=== PATIENT | female | born 1955 | race Caucasian/White ===

== ENCOUNTER 2016-05-05 21:45 | Inpatient (IN) | payer OTHER ==
[~2016-05-05] VITALS: Ht 157.5 cm; Wt 64.4 kg
[~2016-05-05 21:45] MED LIST: ACET325T45 PO; ALBU8.5H5 IH; ALLO100T PO; ATOR40TA68 PO; CALC0.2511 PO; CHOL400T10 PO; CYCL25CA2 PO; DOCU100C26 PO; LOSA25TA5 PO; METO25TA7 PO; MYCO500T13 PO; OMEG100011 PO; PRED5 PO
[2016-05-05] MEDS ORDERED: ADENOSINE 6 ML ONE (22:34)
--- NOTE | 2016-05-05 22:36 | ERA ---
ER Documentation Chief Complaint Date/Time DATE: 05/05/16 TIME: 22:35 Chief Complaint palpitation HPI The patient is an 61-year-old female, presenting to the ER because of palpitation and chest discomfort that began about 9 a.m. intermittently, worse tonight. She has similar symptoms previously and is taking her medication. She denies fever, chills, neck pain, chest pain with exertion or vomiting or diaphoresis. She denies abdominal pain, vomiting, dysuria. He does not smoke nor drink Past medical history: Hypertension, dyslipidemia, history of SVT, chronic kidney disease Past surgical history: Renal transplant, thyroid surgery ROS All systems reviewed and are negative except as per history of present illness. Medications Home Meds Reported Medications Calcitriol* (Calcitriol*) 0.5 Mcg Capsule, 0.5 MCG PO DAILY, CAP 05/05/16 Albuterol Sulfate* (Ventolin HFA*) 18 Gm Hfa.aer.ad, 2 PUFF INHALATION Q4H, #1 INHALER 05/05/16 Docusate Sodium* (Doc-Q-Lace*) 100 Mg Capsule, 100 MG PO BID Y for CONSTIPATION , CAP 03/04/16 Losartan Potassium* (Losartan Potassium*) 25 Mg Tablet, 25 MG PO DAILY, TAB 03/04/16 Atorvastatin* (Atorvastatin*) 40 Mg Tablet, 40 MG PO QHS, #30 TAB 03/04/16 Cyclosporine* (Cyclosporine* Modified) 25 Mg Capsule, 100 MG PO BID, #120 CAP 03/04/16 Allopurinol* (Allopurinol*) 100 Mg Tablet, 100 MG PO DAILY, TAB 01/08/14 Acetaminophen* (Acetaminophen*) 325 Mg Tablet, 325 MG PO Q6 Y for PAIN AND OR ELEVATED TEMP, TAB 01/08/14 Prednisone* (Prednisone*) 5 Mg Tab, 5 MG PO DAILY, TAB 01/08/14 Mycophenolate Mofetil* (Cellcept*) 500 Mg Tablet, 1000 MG PO BID, TAB 01/08/14 Metoprolol Succinate* (Toprol XL*) 25 Mg Tab.sr.24h, 25 MG PO BID, TAB 01/08/14 [place]-3 Fatty Acids/Fish Oil* (Fish Oil *) 1,000 Mg Capsule, 2000 MG PO BID, CAP 01/08/14 Discontinued Reported Medications Cholecalciferol* (Vitamin D*) 400 Unit Tablet, 1.25 MG PO every tuesday, TAB 01/08/14 Albuterol Sulfate* (Albuterol Sulfate* HFA) 8.5 Gm Hfa.aer.ad, 2 PUFF IH Q4H Y for WHEEZING AND SOB, EA 01/08/14 Calcitriol* (Calcitriol*) 0.25 Mcg Capsule, 1 CAP PO DAILY 04/13/10 Allergies Allergies: Coded Allergies: No Known Allergy (Unverified , 05/05/16) PMhx/Soc History of Surgery: Yes Anesthesia Reaction: No Hx Neurological Disorder: No Hx Respiratory Disorders: No Hx Cardiac Disorders: No Hx Psychiatric Problems: No Hx Miscellaneous Medical Probl: Yes (renal failure) Hx Alcohol Use: No Hx Substance Use: No Hx Tobacco Use: No Physical Exam Vitals Vital Signs Date Time Temp Pulse Resp B/P Pulse Ox O2 Delivery O2 Flow Rate FiO2 05/06/16 04:00 94 20 128/98 100 Nasal Cannula 05/06/16 03:00 94 20 124/98 100 Nasal Cannula 05/06/16 02:00 87 20 121/85 100 Nasal Cannula 05/06/16 01:00 94 20 142/95 100 Nasal Cannula 05/06/16 00:08 83 20 122/91 100 Nasal Cannula 05/05/16 23:30 88 21 113/76 100 Nasal Cannula 05/05/16 22:46 161 20 147/125 100 Nasal Cannula 05/05/16 22:45 Nasal Cannula 2 05/05/16 22:40 161 19 119/101 100 Nasal Cannula 05/05/16 22:17 97.7 173 18 127/80 100 Physical Exam Const: No acute distress. Head: Atraumatic. Eyes: Normal Conjunctiva. ENT: Normal External Ears, Nose and Mouth. Neck: Full range of motion. No meningismus. Resp: Bibasilar crackles Cardio: Regular tachycardic Abd: Soft, non distended, normal bowel sounds, non tender. Skin: No petechiae or rashes. Back: No midline or flank tenderness. Ext: No cyanosis, or edema. Neur: Awake and alert. No focal deficit Psych: Normal Mood and Affect. Result Diagram: 05/05/16225305/05/162253 Results 24 hrs Laboratory Tests Test 05/05/16 22:54 Activated Partial Thromboplast Time 26.4Sec Alanine Aminotransferase (ALT/SGPT) 24IU/L Albumin 4.3g/dl Albumin/Globulin Ratio 1.22 Alkaline Phosphatase 96IU/L Anion Gap 19 Aspartate Amino Transf (AST/SGOT) 22IU/L B-Type Natriuretic Peptide 1140PG/ML Basophils # 0.010^3/ul Basophils % 0.2% Blood Urea Nitrogen 37mg/dl Calcium Level 9.0mg/dl Carbon Dioxide Level 26mmol/L Chloride Level 107mmol/L Creatinine 1.56mg/dl Direct Bilirubin 0.00mg/dl Eosinophils # 0.110^3/ul Eosinophils % 0.7% Globulin 3.50g/dl Glucose Level 119mg/dl Hematocrit 30.3% Hemoglobin 9.5g/dl INR International Normalized Ratio 0.91 Indirect Bilirubin 0.0mg/dl Lymphocytes # 2.110^3/ul Lymphocytes % 20.3% Magnesium Level 1.8mg/dl Mean Corpuscular Hemoglobin 26.4pg Mean Corpuscular Hemoglobin Concent 31.4g/dl Mean Corpuscular Volume 84.2fl Mean Platelet Volume 11.7fl Monocytes # 1.410^3/ul Monocytes % 13.0% Neutrophils # 6.810^3/ul Neutrophils % 65.4% Nucleated Red Blood Cells # 0.010^3/ul Nucleated Red Blood Cells % 0.0/100WBC Platelet Count 54066^3/UL Potassium Level 4.7mmol/L Prothrombin Time 12.2Sec Prothrombin Time Ratio 1.0 Red Blood Count 3.6010^6/ul Red Cell Distribution Width 14.3% Sodium Level 147mmol/L Thyroid Stimulating Hormone (TSH) 1.400MIU/L Total Bilirubin 0.0mg/dl Total Protein 7.8g/dl Troponin I 0.025ng/ml White Blood Count 10.510^3/ul Current Medications Medications (Trade) Dose Ordered Sig/Verna Route PRN Reason Start Time Stop Time Status Last Admin Dose Admin Furosemide 40 mg 40 mg ONCE ONCE IV 05/06/16 01:00 05/06/16 01:01 DC 05/06/16 01:00 Sodium Chloride (NS) 1,000 ml @ 75 mls/hr [id number] IV 05/06/16 00:58 05/06/16 01:08 DC IV Flush (NS 3 ml) 3 ml PER PROTOCOL IV 05/06/16 01:00 Lorazepam (Ativan) 0.5 mg Q6H PRN IV ANXIETY 05/06/16 01:00 Ondansetron HCl (Zofran Inj) 4 mg Q6H PRN IV NAUSEA AND/OR VOMITING 05/06/16 01:00 Nitroglycerin (Nitroglycerin (Sl Tab) 0.4 Mg) 1 tab Q5M PRN SL CHEST PAIN 05/06/16 01:00 Acetaminophen (Tylenol Tab) 650 mg Q6H PRN PO PAIN LEVEL 1-3 OR FEVER 05/06/16 01:00 Morphine Sulfate (morphine) 2 mg Q4H PRN IV PAIN LEVEL 7-10 05/06/16 01:00 Docusate Sodium (Colace) 100 mg Q12H PRN PO CONSTIPATION 05/06/16 01:00 UNV Famotidine (Pepcid) 20 mg Q12 PO 05/06/16 09:00 Heparin Sodium (Porcine) (Heparin (5000 Units/0.5 ml)) 5,000 unit Q12 SC 05/06/16 09:00 Albuterol (Ventolin Hfa) 2 puff Q4H INH 05/06/16 01:00 UNV Allopurinol (Zyloprim) 100 mg DAILY PO 05/06/16 09:00 UNV Atorvastatin Calcium (Lipitor) 40 mg QHS PO 05/06/16 21:00 UNV Calcitriol (Rocaltrol) 0.5 mcg DAILY PO 05/06/16 09:00 UNV Cyclosporine (Neoral) 100 mg BID PO 05/06/16 09:00 UNV Losartan Potassium (Cozaar) 25 mg DAILY PO 05/06/16 09:00 UNV Metoprolol Succinate (Toprol Xl) 25 mg BID PO 05/06/16 09:00 UNV Mycophenolate Mofetil (Cellcept) 1,000 mg BID PO 05/06/16 09:00 UNV Fish Oil (Fish Oil) 2,000 mg BID PO 05/06/16 09:00 UNV Prednisone (Prednisone) 5 mg DAILY PO 05/06/16 09:00 UNV Diltiazem HCl (Cardizem Iv) 10 mg ONCE ONCE IV 05/06/16 01:30 05/06/16 01:31 DC 05/06/16 02:24 Procedures/MDM EKG: Read by emergency physician at 10:18 pm Rate/Rhythm: SVT at 170 beats/min QRS, ST, T-waves: no T inversion, nonspecific ST abnormality Impression: Abnormal EKG EKG: Read by emergency physician at 10:45 pm Rate/Rhythm: Accelerated junctional rhythm 87 beats/min QRS, ST, T-waves: no T inversion , nonspecific ST abnormality Impression: Abnormal EKG [place] [id number] Radiology Main Line: [phone] DIAGNOSTIC IMAGING REPORT Patient: STEVE FONTENOT : 1955 Age: 61 Sex: F MR #: [id number] DOS: 05/05/16 2247 Ordering MD: DIAMANTE SANCHEZ MD Location: E/R Room/Bed: PROCEDURE: XR Chest. CLINICAL INDICATION: Chest pain. TECHNIQUE: Portable AP upright view of the chest was obtained. COMPARISON: 03/04/2016 FINDINGS: The cardiomediastinal silhouette is enlarged. The lungs are clear with resolved bibasilar subsegmental atelectasis and pulmonary vascular congestion. There is no evidence for pleural effusion, pneumothorax or pulmonary vascular congestion. The osseous structures are intact with no evidence for acute abnormality. Multiple clips in the right arm, left axilla and neck are again seen. RPTAT:HJJR IMPRESSION: Stable cardiomegaly with interval resolution of congestive heart failure pattern and bibasilar subsegmental atelectasis compared to the prior exam. Physician Ritika Date Time Electronically viewed and signed by Physician Ritika on 05/05/2016 23:21 JR/ CC: DIAMANTE SANCHEZ MD MEDICAL MAKING DECISION: The patient is a 61-year-old female, presenting with acute recurrent SVT, acute CHF. She was treated with adenosine 6 mg IV then 12 mg IV without response. She was then treated with Cardizem 10 mg IV with good response. She was treated with Lasix 40 mg IV for acute CHF with good response. The differential diagnoses considered include but are not limited to asthma, COPD, pneumonia, pulmonary embolus, pleural effusion, congestive heart failure. Critical Care: Time: 35 minutes excluding all billable procedures. Treatments/Evaluations: Close monitoring and treatment of unstable vital signs, cardiorespiratory, and neurologic status, while maintaining tight balance of fluid, respiratory, and cardiac interventions. Departure Diagnosis: Primary Impression: SVT (supraventricular tachycardia) Additional Impression: CHF (congestive heart failure) Condition: Stable Comments I discussed the findings with the patient. I discussed the patient with the on- call hospitalist Dr. Roach who was made aware of the lab, the treatment, the patient condition. The patient is admitted to telemetry at 12:30 AM DIAMANTE SANCHEZ MD May 05, 2016 22:36
[2016-05-05] MEDS ORDERED: DILTIAZEM 25 MG INJ ONE (22:44)
[2016-05-05] MEDS ORDERED: ALBU18HF INHALATION (23:01)
[2016-05-05] MEDS ORDERED: CALC0.5C4 PO (23:01)
--- NOTE | 2016-05-05 23:21 | RADRPT ---
PROCEDURE: XR Chest. CLINICAL INDICATION: Chest pain. TECHNIQUE: Portable AP upright view of the chest was obtained. COMPARISON: 03/04/2016 FINDINGS: The cardiomediastinal silhouette is enlarged. The lungs are clear with resolved bibasilar subsegmen joel atelectasis and pulmonary vascular congestion. There is no evidence for pleural effusion, pneum othorax or pulmonary vascular congestion. The osseous structures are intact with no evidence for ac justino abnormality. Multiple clips in the right arm, left axilla and neck are again seen. RPTAT:HJJR IMPRESSION: Stable cardiomegaly with interval resolution of congestive heart failure pattern and bibasilar subse gmental atelectasis compared to the prior exam. Physician Ritika Date Time Electronically viewed and signed by Physician Ritika on 05/05/2016 23:21 JR/
[2016-05-06] VITALS (10 sets, daily range): BP systolic 104–126; BP diastolic 64–85; PULSE 58–126; RESP 16–17; Ht 157.5 cm; Wt 64.4 kg
[2016-05-06 00:03] LABS: ALBUMIN 4.3 g/dl (3.3-4.9); INR 0.91; POTASSIUM 4.7 mmol/L (3.5-5.1); PROTIME 12.2 Sec (12.2-14.2)
[2016-05-06 00:04] LABS: PARTIAL THROMBOPLASTIN TIME 26.4 Sec (25.0-35.0)
[2016-05-06 00:05] LABS: CREATININE 1.56 mg/dl (0.44-1.00)
[2016-05-06 00:06] LABS: ALBUMIN/GLOBULIN RATIO 1.22; MAGNESIUM 1.8 mg/dl (1.7-2.5); TOTAL PROTEIN 7.8 g/dl (6.1-8.1)
[2016-05-06 00:18] LABS: TROPONIN-I 0.025 ng/ml (0.00-0.12)
[2016-05-06 00:36] LABS: THYROID STIMULATING HORMONE 1.4 MIU/L (0.465-4.680)
[2016-05-06 00:43] LABS: WHITE BLOOD COUNT 10.5 10^3/ul (4.8-10.8)
[2016-05-06 00:44] LABS: BASOPHILS % 0.2 % (0.0-2.0); EOSINOPHILS % 0.7 % (0.0-7.0); HEMATOCRIT 30.3 % (37.0-47.0); HEMOGLOBIN 9.5 g/dl (12.0-16.0); LYMPHOCYTES # 2.1 10^3/ul (0.8-2.9); LYMPHOCYTES % 20.3 % (15.0-51.0); MEAN CORPUSCULAR HEMOGLOBIN 26.4 pg (29.0-33.0); MEAN CORPUSCULAR HGB CONC 31.4 g/dl (32.0-37.0); MEAN CORPUSCULAR VOLUME 84.2 fl (82.0-101.0); MEAN PLATELET VOLUME 11.7 fl (7.4-10.4); MONOCYTE # 1.4 10^3/ul (0.3-0.9); NEUTROPHIL # 6.8 10^3/ul (1.6-7.5); NEUTROPHILS % 65.4 % (39.0-77.0); PLATELET COUNT 192 10^3/UL (140-440); RED CELL DISTRIBUTION WIDTH 14.3 % (11.5-14.5)
[2016-05-06 00:45] LABS: EOSINOPHILS # 0.1 10^3/ul (0.0-0.5)
[2016-05-06] MEDS ORDERED: SOD CHLORIDE 0.9% 1,000 ML IV SCH (00:58)
[2016-05-06] MEDS ORDERED: NITROGLYCERIN (SL) 0.4 MG TAB SL PRN (01:00)
[2016-05-06] MEDS ORDERED: FUROSEMIDE 40 MG INJ IV ONE (01:00)
[2016-05-06] MEDS ORDERED: ALBUTEROL HFA 8 GM INHALER INH SCH ×2 (01:00→09:00)
[2016-05-06] MEDS ORDERED: morphine 2 MG INJ IV PRN (01:00)
[2016-05-06] MEDS ORDERED: DOCUSATE SODIUM 100 MG CAP PO PRN (01:00)
[2016-05-06] MEDS ORDERED: NACL 0.9% 3 ML SYG IV SCH (01:00)
[2016-05-06] MEDS ORDERED: ACETAMINOPHEN 325 MG TAB PO PRN (01:00)
[2016-05-06] MEDS ORDERED: ONDANSETRON 4 MG INJ IV PRN (01:00)
[2016-05-06] MEDS ORDERED: LORAZEPAM 2 MG INJ IV PRN (01:00)
--- NOTE | 2016-05-06 01:12 | HP ---
Date/Time of Note Date/Time of Note DATE: 05/06/16 TIME: 01:02 Assessment/Plan VTE Prophylaxis VTE Prophylaxis Intervention: heparin Lines/Catheters IV [facility] Saline [place] Assessment/Plan Assessment/Plan 61 yo female with a past medical history of essential hypertension, renal transplant, hyperlipidemia, SVT who presented with palpitations. 1. SVT - s/p chemical conversion - will admit the patient to telemetry, consult cardiology, cycle cardiac markers, needs EP eval, will check TSH/Mag levels, recent echo completed, EF 50-55% with stage III/ diastolic dysfunction 2. Renal Transplant - will continue with steroids/cellcept/cyclosporine, consult nephro, renally adjust medications 3. CHF exac - acute on chronic diastolic dysfunction - lasix/gentle diuresis 4. Essential hypertension - continue with cozaar/metoprolol 5. Hyperlipidemia - continue with statin 6. Anemia of chronic kidney disease - continue with monitoring, transfuse as per renal recs 7. GI ppx - pepcid po 8. DVT ppx - heparin answered all of her questions. as per clinical course. this history and physical took greater then 45 minutes to complete HPI/ROS Admit Date/Time Admit Date/Time 05/06/2016, 1:02 am Hx of Present Illness 61 yo female with a past medical history of essential hypertension, renal transplant, hyperlipidemia, SVT who presented with palpitations. She states around 8:30 pm, she was having palpitations while opening a can of corn. She had a similar presentation in Feb 2016 where she was hospitalized for it. She was in good health prior to this, and had seen her shot hole shooter yesterday. Otherwise complains of elevated blood pressure as well. Denies any chest pain, shortness of breath, loss of consciousness, headaches, urinary/bowel irregularities, fevers/chills, nausea/vomiting/diarrhea/constipation, or other constitutional symptoms. She is suppose to have outpatient follow up with cardiology next month. ECHO 03/04/2016 Conclusions 1. Lower limits of normal systolic function. Normal left ventricular cavity size. Mild concentric left ventricular hypertrophy. Ejection fraction is visually estimated at 50-55 %. Tissue Doppler/Mitral Doppler indices are consistent with restrictive physiology with markedly elevated left atrial pressure (Stage III-IV diastolic dysfunction). 2. There is mild enlargement of left atrium. 3. Mitral valve leaflets appear mildly thickened. Mild mitral annular calcification. Moderate mitral valve regurgitation. 4. Aortic cusps appear mildly calcified. Mild aortic valve regurgitation. 5. Normal appearance of the tricuspid valve. Estimated peak PA systolic pressure 32 mmHg. There is trace to mild tricuspid regurgitation. ED course: received adenosine 6/12mg, then cardizem, IVF, lasix ROS 14 point review of systems completed, please refer to HPI for any positive findings PMH/Family/Social Past Medical History SVT, s/p Renal transplant Medical History: congestive heart failure, coronary artery disease, high cholesterol, hypertension Past Surgical History s/p renal transplant Family History Significant Family History: no pertinent family hx Social History Alcohol Use: none Smoking Status: Never smoker Drug Use: none Exam/Review of Systems Vital Signs Vitals Vital Signs Date Time Temp Pulse Resp B/P Pulse Ox O2 Delivery O2 Flow Rate FiO2 05/06/16 00:08 83 20 122/91 100 Nasal Cannula 05/05/16 22:45 2 05/05/16 22:17 97.7 Exam Exam Gen Timmy: mild distress 2/2 to palpitations, AAOx4 HEENT: NC/AT, PERRLA, EOMI, no pharyngeal erythema, no tonsillar exudates, no lymphadenopathy, no JVD, no carotid bruits NECK: supple, no thyromegaly THORAX: symmetrical, no obvious deformities CV: S1S2, RRR, IIVI systolic murmur best heard over mitral area Lungs: CTAB no W/C/R/R Abd: soft, NT/ND, +BS, no rebound, no guarding, neg HSM EXT: no edema, no ecchymosis, no clubbing, FROM Neuro: CN II-XII grossly intact, no focal deficits Psych: fair mood and affect Skin: C/D/I Labs Result Diagram: 05/05/16225305/05/162253 Medications Medications Current Medications Sodium Chloride (NS) 1,000 ml @ 75 mls/hr [id number] IV ; Start 05/06/16 at 00:58 ; Status UNV Procedures Procedures CXR IMPRESSION: Stable cardiomegaly with interval resolution of congestive heart failure pattern and bibasilar subsegmental atelectasis compared to the prior exam. CYNTHIA CATALAN MD May 06, 2016 01:11
[2016-05-06] MEDS ORDERED: DILTIAZEM 25 MG INJ IV ONE ×2 (01:30→06:00)
[2016-05-06] MEDS: ALBUTEROL HFA 8 GM INHALER INH SCH ×2 (05:00→09:00)
[2016-05-06 07:28] LABS: CK-MB 2.64 ng/ml (0.0-2.4)
[2016-05-06 07:34] LABS: TROPONIN-I 0.192 ng/ml (0.00-0.12)
[2016-05-06 07:51] LABS: THYROID STIMULATING HORMONE 1.52 MIU/L (0.465-4.680)
[2016-05-06] MEDS: MYCOPHENOLATE 250 MG CAP PO SCH ×2 (08:13→20:48)
[2016-05-06] MEDS: CYCLOSPORINE MICROEMULS 100 MG CAP PO SCH ×2 (08:13→20:48)
[2016-05-06] MEDS: CALCITRIOL 0.25 MCG CAP PO SCH (08:13)
[2016-05-06] MEDS: predniSONE 5 MG TAB PO SCH (08:14)
[2016-05-06] MEDS: METOPROLOL (XL) 25 MG TAB PO SCH ×2 (08:14→20:54)
[2016-05-06] MEDS: ALLOPURINOL 100 MG TAB PO SCH (08:14)
[2016-05-06] MEDS: FAMOTIDINE 20 MG TAB PO SCH ×2 (08:14→20:48)
[2016-05-06] MEDS: FISH OIL 1,000 MG CAP PO SCH ×2 (08:14→20:48)
[2016-05-06] MEDS: HEPARIN 5,000 UNIT/0.5 ML SYG SC SCH ×2 (08:22→20:55)
[2016-05-06 08:24] LABS: CHOL/HDL RATIO 3.9 RATIO
[2016-05-06 08:43] LABS: MAGNESIUM 1.7 mg/dl (1.7-2.5)
[2016-05-06] MEDS ORDERED: LOSARTAN 25 MG TAB PO SCH (09:00)
--- NOTE | 2016-05-06 09:45 | CONS ---
DATE OF ADMISSION: 05/06/2016 DATE OF CONSULTATION: NEPHROLOGY CONSULTATION REASON FOR CONSULTATION: History of kidney transplant, chronic kidney disease. REQUESTING PHYSICIAN: Clifford Roach MD HISTORY OF PRESENT ILLNESS: This is a 61-year-old female with a past medical history of end-stage r enal disease status post cadaveric renal transplants in 1998 with a baseline creatinine around 1.5 t o 1.6 mg/dL, history of hypertension, dyslipidemia, gout, who presents to [facility] due to complaints of palpitations, chest discomfort. The patient stated her symptoms began approximately 1 day prior to admission. They occurred intermittently. The patient's symptoms, how ever, had progressively gotten worse. As a result, she came into the emergency room. Upon arrival in the emergency room, the patient was noted to be in SVT. The patient received adenosine and dilti azem in the emergency room, converted to a spontaneous sinus rhythm. The patient also received diur etic therapy as her chest x-ray showed pulmonary congestion. The patient was transferred to telemet . Overnight, the patient was clinically stable without any further complications. There were no reports of hemoptysis, hematemesis, or hematochezia. In terms of the patient's renal history, she has a history of cadaveric renal transplant in 1998. T he patient has been on triple therapy. The patient's renal function has been stable. She has been followed by a [place] coroner in an outpatient setting. She denies any history of rejection, d enies any rashes, any frothy urine. PAST MEDICAL HISTORY: As stated above, history of end-stage renal disease status post cadaveric dottie al transplant, history of gout, dyslipidemia, hypertension. PAST SURGICAL HISTORY: Status post cadaveric renal transplant. SOCIAL HISTORY: Does not drink, smoke, or do drugs. MEDICATIONS: Have been reviewed. FAMILY HISTORY: No family history of kidney disease, heart disease. REVIEW OF SYSTEMS: A 14-point review of systems was conducted. Pertinent positives stated in the H PI, otherwise negative. PHYSICAL EXAMINATION: VITAL SIGNS: Blood pressure is currently 126/74, respirations 17, pulse 63, temperature 98.2. HEENT: Head is normocephalic. NECK: Supple. HEART: Regular rate. LUNGS: Show diminished breath sounds at the base. ABDOMEN: Soft, nontender to palpation. No rebound or guarding. EXTREMITIES: Negative for clubbing, cyanosis, no edema. DERMATOLOGIC: No rashes. MUSCULOSKELETAL: No joint effusions. NEUROLOGIC: No focal deficits. The patient's medications have been reviewed. LABORATORY DATA: On May 05 shows a white count 10.5, hemoglobin 9.5, hematocrit of 30.3, jolie telet count is 192. Sodium 147, potassium 4.7, chloride 107, BUN 37, creatinine 1.56. Troponin 0.1 92. BNP 1100. IMAGING STUDIES: The patient's chest x-ray shows stable cardiomegaly with resolution of congestive heart failure pattern. ASSESSMENT AND PLAN: 1. End-stage renal disease status post cadaveric renal transplant. The patient's baseline creatini ne is between 1.5 and 1.7 mg/dL. The patient's renal function appears to be at baseline. Plan at t his point is to check a UA with microanalysis. Would otherwise continue current immunosuppression r egimen of cyclosporine, prednisone, and CellCept. Will monitor renal function closely. 2. Acute congestive heart failure exacerbation, diastolic, possible systolic. The patient is statu s post diuretic therapy with improvement. Will continue medical management and follow up with cardi ology. 3. Supraventricular tachycardia. The patient is status post chemical conversion, currently in sinu s rhythm. Continue current medical management. Follow up with cardiology. 4. Mineral bone disorder. Monitor calcium and phosphorus levels. No need for phosphate binders. 5. Hypertension. Continue current blood pressure regimen. 6. Dyslipidemia. Continue statin therapy. Thank you, Dr. Roach, for this interesting consult. It will be a pleasure to follow the patient w raúl redmond throughout the hospital course. Dictated By: LINDSYA WITT/EDDIE Conf#: [id number] DID#: [id number]
[2016-05-06 12:26] LABS: CK-MB 2.36 ng/ml (0.0-2.4)
[2016-05-06 12:35] LABS: TROPONIN-I 0.15 ng/ml (0.00-0.12)
[2016-05-06] MEDS ORDERED: METOPROLOL 5 MG INJ IV PRN (13:00)
[2016-05-06] MEDS: DILTIAZEM (CD) 180 MG CAP PO SCH (14:14)
[2016-05-06 14:25] LABS: ADD UMIC YES; URINE BILIRUBIN (Dip) NEGATIVE (NEGATIVE); URINE BLOOD (Dip) NEGATIVE (NEGATIVE); URINE COLOR LT. YELLOW (YELLOW); URINE GLUCOSE (Dip) NEGATIVE (NEGATIVE); URINE KETONES (Dip) NEGATIVE (NEGATIVE); URINE LEUKOCYTE ESTERASE (Dip) 3+ (NEGATIVE); URINE NITRITE (Dip) NEGATIVE (NEGATIVE); URINE TOTAL PROTEIN (Dip) TRACE (NEGATIVE); URINE UROBILINOGEN (Dip) 0.2 E.U./dL (0.1-1.0)
[2016-05-06 14:45] LABS: BACTERIA,URINE MODERATE; URINE RBCS 0-2 /HPF (0)
--- NOTE | 2016-05-06 14:50 | QN ---
Documentation Comment The patient was seen and evaluated. Labs reviewed. Plan of care was explained to the patient. Case discussed with Dr. Sánchez. MANOHAR YOUSIF NP May 06, 2016 14:50
[2016-05-06 16:56] LABS: PROTEIN URINE 21.7 mg/dl (0.0-9.9)
[2016-05-06 20:32] LABS: CK-MB 1.82 ng/ml (0.0-2.4)
[2016-05-06 20:35] LABS: TROPONIN-I 0.11 ng/ml (0.00-0.12)
[2016-05-06] MEDS: ATORVASTATIN 40 MG TAB PO SCH (20:47)
--- NOTE | 2016-05-06 21:34 | CONS ---
DATE OF ADMISSION: 05/06/2016 DATE OF CONSULTATION: 05/06/2016 CARDIAC CONSULTATION REASON FOR CONSULTATION: Supraventricular tachyarrhythmia, chest pain. REQUESTING PHYSICIAN: Dr. Roach from the hospitalist service. HISTORY OF PRESENT ILLNESS: Ms. Fraser is a 61-year-old female with prior admission for a supraventric ular tachycardia concerning for a possible atrial tachycardia, AVNRT, preserved EF by echo February 2016, prior renal transplant, dyslipidemia, hypertension who presents with recurrent episode of palp itations and associated chest pain. Upon arrival, temperature of 97.7, blood pressure 127/80, pulse 173, respiration 18, saturating 100%. The patient's labs revealed white count 10.5, hemoglobin 9.5 , platelet count 182. Sodium 147, potassium 4.7, creatinine 1.56. Troponin negative initially. TS H 1.4. LDL 78, HDL 39. INR 0.9. The patient underwent a chest x-ray revealing stable cardiomegaly , interval resolution of congestive heart failure pattern, and bibasilar subsegmental atelectasis. The patient in the emergency department was treated with adenosine with stress, unclear if adenosine x2 was able to break the patient's tachyarrhythmia or if the tachyarrhythmia stopped on its own. T he patient has now been admitted to the floor where she denies ongoing chest pain, shortness of heriberto th, palpitations. The patient was monitored on telemetry revealing no recurrent supraventricular ta chyarrhythmias. PAST MEDICAL HISTORY: As above in HPI. MEDICATIONS CURRENTLY IN HOSPITAL: 1. Lipitor 40 mg at bedtime. 2. Pepcid 20 mg q. . 3. Heparin 5000 subQ q. . 4. Allopurinol. 5. Cyclosporine 100 mg b.i.d. 6. Cozaar 25 mg daily. 7. Toprol XL 25 mg daily. 8. CellCept 5 mg b.i.d. 9. Fish oil 2 g b.i.d. 10. Prednisone 5 mg daily. 11. Albuterol. 12. Zofran p.r.n. 13. ____ p.r.n. 14. Tylenol p.r.n. 15. Morphine p.r.n. 16. Colace p.r.n. ALLERGIES: NO KNOWN DRUG ALLERGIES. SOCIAL HISTORY: No tobacco, ETOH, or illicit drug use. FAMILY HISTORY: No history of sudden cardiac or early CAD. REVIEW OF SYSTEMS: As above in HPI. CONSTITUTIONAL: No fevers, chills. PULMONARY: No current shortness of breath. CARDIOVASCULAR: Palpitations. GASTROINTESTINAL: No vomiting. GENITOURINARY: No hematuria. MUSCULOSKELETAL: Degenerative joint disease. PSYCHIATRIC: The patient denies depression. NEUROLOGIC: No documented history of CVA. ENDOCRINE: No documented history of thyroid disease. PHYSICAL EXAMINATION: VITAL SIGNS: Temperature of 97.5, blood pressure 120/73, pulse 69, respiratory rate 17, saturating 99%. GENERAL: The patient is alert, awake, in no acute distress. NECK: JVP approximately 8 cm water. CHEST: Fair air movement throughout. HEART: Regular rate and rhythm. Normal S1, S2, I/ systolic murmur, nondisplaced PMI. ABDOMEN: Positive bowel sounds, soft. EXTREMITIES: No edema, 1+ pulses bilaterally, posterior tibial. LABORATORIES: As above in HPI with most recently from today, troponin 0.150, down from 1.192. LDL 70, HDL 39. TSH 1.52, within normal limits. White cell count 10.5, hemoglobin 9.5, platelet count 192. IMAGING STUDIES: As above in HPI. No further imaging studies for my review at this time. ECG: Most recently from to May 05 at 2245, at that time revealed rhythm most consistent with sinus rhythm at a rate of 87 with normal axis, normal intervals, and nonspecific ST and T-wave abno rmalities. IMPRESSION: 1. Supraventricular tachyarrhythmia, question if rhythm truly broke with adenosine; thus, more like ly atrioventricular nataliya reentrant tachycardia versus atrial tachycardia versus, less likely atriov entricular nataliya reentrant tachycardia, atypical atrial flutter. 2. Chest pain palpitations. 3. Positive troponin, minimal in the setting of supraventricular tachycardia. 4. Hypertension, under reasonable control. 5. Dyslipidemia. 6. History of renal transplant. 7. Congestive heart failure exacerbation in the setting of supraventricular tachycardia, now resolved, likely due to weight-related phenomenon, decreased time for systolic ejection and diastoli c filling. 8. Anemia. RECOMMENDATIONS: 1. At this time, would maintain the patient on telemetry monitoring to follow rhythm and rate contr ol closely. 2. Continue the patient's current beta tana and will add calcium channel tana in an attempt t o suppress further bouts of supraventricular tachyarrhythmia. 3. Would place the patient on aspirin in the setting of positive troponins. 4. Will continue patient's current statin therapy and adjust it according to a fasting lipid panel as checked and additionally continue the patient's Cozaar at this time. 5. Additionally, continue the patient's fish oil. 6. We will schedule the patient for a stress test to assess for significant of positive troponins i n the setting of extreme tachyarrhythmia. Thank you for allowing me to take part in the care of this patient. I will continue to follow very closely with you with further recommendations to be made as the patient progresses through her [facility] clinical course. Dictated By: STEVEN CAMEJO/EDDIE Conf#: [id number] DID#: [id number] CC: CYNTHIA ROACH MD;*EndCC*
[2016-05-07] VITALS (11 sets, daily range): BP systolic 90–119; BP diastolic 58–77; PULSE 54–77; RESP 16–20
[2016-05-07 02:07] LABS: CK-MB 1.4 ng/ml (0.0-2.4)
[2016-05-07 02:09] LABS: TROPONIN-I 0.086 ng/ml (0.00-0.12)
[2016-05-07 06:32] LABS: ADD SCAN DIFF NO
[2016-05-07 06:46] LABS: BASOPHILS % 0.2 % (0.0-2.0); EOSINOPHILS # 0.1 10^3/ul (0.0-0.5); EOSINOPHILS % 1.4 % (0.0-7.0); HEMATOCRIT 28.8 % (37.0-47.0); LYMPHOCYTES # 3.1 10^3/ul (0.8-2.9); LYMPHOCYTES % 32.2 % (15.0-51.0); MEAN CORPUSCULAR HEMOGLOBIN 26.1 pg (29.0-33.0); MEAN CORPUSCULAR HGB CONC 31.3 g/dl (32.0-37.0); MEAN CORPUSCULAR VOLUME 83.5 fl (82.0-101.0); MEAN PLATELET VOLUME 11.1 fl (7.4-10.4); MONOCYTE # 1.1 10^3/ul (0.3-0.9); MONOCYTES % 11.2 % (0.0-11.0); NEUTROPHIL # 5.3 10^3/ul (1.6-7.5); NEUTROPHILS % 54.7 % (39.0-77.0); PLATELET COUNT 179 10^3/UL (140-415); RED BLOOD COUNT 3.45 10^6/ul (4.20-5.40); WHITE BLOOD COUNT 9.6 10^3/ul (4.8-10.8)
[2016-05-07 06:52] LABS: POTASSIUM 4.3 mmol/L (3.5-5.1)
[2016-05-07 06:55] LABS: CREATININE 1.9 mg/dl (0.44-1.00); MAGNESIUM 1.9 mg/dl (1.7-2.5); PHOSPHORUS 4.4 mg/dl (2.5-4.9)
[2016-05-07 06:56] LABS: CALCIUM 9.1 mg/dl (8.4-10.2)
[2016-05-07 07:04] LABS: CK-MB 1.15 ng/ml (0.0-2.4)
[2016-05-07 07:08] LABS: TROPONIN-I 0.094 ng/ml (0.00-0.12)
[2016-05-07] MEDS: ALBUTEROL HFA 8 GM INHALER INH SCH ×3 (08:40→16:40)
[2016-05-07] MEDS: FISH OIL 1,000 MG CAP PO SCH ×2 (08:42→20:46)
[2016-05-07] MEDS: DEXTROSE 5% 1,000 ML IV SCH (08:51)
[2016-05-07] MEDS: DILTIAZEM (CD) 180 MG CAP PO SCH (08:52)
[2016-05-07] MEDS: CYCLOSPORINE MICROEMULS 100 MG CAP PO SCH ×3 (08:54→20:46)
[2016-05-07] MEDS: CALCITRIOL 0.25 MCG CAP PO SCH ×2 (08:54→09:00)
[2016-05-07] MEDS: METOPROLOL (XL) 25 MG TAB PO SCH ×2 (08:54→20:26)
[2016-05-07] MEDS: predniSONE 5 MG TAB PO SCH ×2 (08:55→09:00)
[2016-05-07] MEDS: ALLOPURINOL 100 MG TAB PO SCH ×2 (08:55→09:00)
[2016-05-07] MEDS: MYCOPHENOLATE 250 MG CAP PO SCH ×3 (08:55→20:46)
[2016-05-07] MEDS: FAMOTIDINE 20 MG TAB PO SCH ×2 (08:55→09:00)
[2016-05-07] MEDS: HEPARIN 5,000 UNIT/0.5 ML SYG SC SCH ×2 (08:58→20:48)
[2016-05-07] MEDS ORDERED: SOD CHLORIDE 0.45% 1,000 ML IV SCH (09:00)
--- NOTE | 2016-05-07 09:28 | PN ---
DATE: 05/07/2016 SUBJECTIVE: The patient is stable, no acute events overnight. No fevers, chills, nausea, vomiting. OBJECTIVE: VITAL SIGNS: Blood pressure is 92/62, respirations 20, pulse 61, temperature 98.6. HEENT: Head is normocephalic. NECK: Supple. HEART: Regular rate. LUNGS: Show diminished breath sounds at the base. ABDOMEN: Soft, nontender to palpation. No rebound or guarding. EXTREMITIES: Negative for clubbing, cyanosis, no edema. DERMATOLOGIC: No rashes. MUSCULOSKELETAL: No joint effusions. NEUROLOGIC: No change in exam. MEDICATIONS: The patient's medications have been reviewed. LABORATORY DATA: Shows sodium 145, potassium 4.3, chloride 108, BUN 46, creatinine 1.90, white coun t 9.6, hemoglobin 9.0, hematocrit 28.8, platelet count 179. ASSESSMENT AND PLAN: End-stage renal disease status post cadaveric transplant. The patient's basel ine creatinine between 1.5 and 1.7 mg/dL. The patient's renal function declined last 24 hours. Thi s is likely due to hemodynamics as the patient is n.p.o. and ARB effect. PLAN: 1. At this point would be to start the patient on D5W. Will hold Cozaar. The patient's urinalysis was evaluated. No evidence of active sediment. Will otherwise continue supportive care, renally do se all meds, avoid nephrotoxins. Continue current immunosuppressive regimen. 2. Acute congestive heart failure exacerbation, systolic, diastolic. The patient is status post di uretic therapy. We will continue to monitor. Continue medical management. 3. Supraventricular tachycardia. The patient is currently in sinus rhythm. Continue current treatm ent plan. Follow up with Cardiology. 4. Mineral bone disorder. Continue to monitor calcium and phosphorus levels. No need for phosphat e binders. 5. Hypernatremia. The patient is currently n.p.o. We will start patient on D5W at 50 mL an hour an d monitor. 6. Hypertension. Continue current blood pressure regimen. 7. Dyslipidemia. Continue statin therapy. Dictated By: LINDSAY JOSE DO NR/NTS Conf#: [id number] DID#: [id number]
--- NOTE | 2016-05-07 12:46 | CONS ---
Date/Time of Note Date/Time of Note DATE: 05/07/16 TIME: 12:43 Assessment/Plan Assessment/Plan Additional Assessment/Plan 1. Supraventricular tachyarrhythmia, question if rhythm truly broke with adenosine; thus, more likely atrioventricular nataliya reentrant tachycardia versus atrial tachycardia versus, less likely atrioventricular nataliya reentrant tachycardia, atypical atrial flutter. Now in sinus. 2. Chest pain with palpitations - Stressd test planned today. 3. Positive troponin, minimal in the setting of supraventricular tachycardia - will monitor - med rx , await stress test results. 4. Hypertension, under reasonable control. - con't med rx. 5. Dyslipidemia. 6. History of renal transplant- renal team follows. 7. Congestive heart failure exacerbation in the setting of supraventricular tachycardia, now resolved, likely due to weight-related phenomenon, decreased time for systolic ejection and diastolic filling. Will review ECHO. 8. Anemia. Consultation Date/Type/Reason Admit Date/Time May 06, 2016 at 00:45 Initial Consult Date 24 HR Interval Summary Free Text/Dictation NO acute change - sinus now - Stress test planned toady. ROS: No fever, no chills, no nausea, no vomiting, no diarrhea/constipation No recent weight changes No chest pain, no PND, no orthopnea No dizziness, blurred vision No thirst, no heat or cold intolerance Exam/Review of Systems Vital Signs Vitals Vital Signs Date Time Temp Pulse Resp B/P Pulse Ox O2 Delivery O2 Flow Rate FiO2 05/07/16 12:09 54 05/07/16 11:13 97.8 20 109/66 97 05/06/16 06:09 Nasal Cannula 2.0 Exam General: WN/WD/NAD, AOx 3 HEENT: Unicetric/atraumatic/EOMI (follows commands) NECK: JVD elevated, no thyromegaly Lymph: no lymphadenopathy HEART: regular with no S3, II/ systolic murmur at apex LUNGS: Coarse sounds ABD: soft, NT, ND, +BS : Intact Neuro: non focal SKIN: chronic changes EXT: trace edema Results Result Diagram: 05/07/16 0610 05/07/16 0610 Results 24 hrs Laboratory Tests Test 05/06/16 19:35 05/07/16 00:35 05/07/16 06:10 Creatine Kinase 48 39 37 Creatine Kinase Index 3.8 3.6 3.1 Creatinine Kinase MB (Mass) 1.82 1.40 1.15 Troponin I 0.110 0.086 0.094 Anion Gap 17 H Basophils # 0.0 Basophils % 0.2 Blood Urea Nitrogen 46 H Calcium Level 9.1 Carbon Dioxide Level 24 Chloride Level 108 Creatinine 1.90 H Eosinophils # 0.1 Eosinophils % 1.4 Glucose Level 98 Hematocrit 28.8 L Hemoglobin 9.0 L Lymphocytes # 3.1 H Lymphocytes % 32.2 Magnesium Level 1.9 Mean Corpuscular Hemoglobin 26.1 L Mean Corpuscular Hemoglobin Concent 31.3 L Mean Corpuscular Volume 83.5 Mean Platelet Volume 11.1 H Monocytes # 1.1 H Monocytes % 11.2 H Neutrophils # 5.3 Neutrophils % 54.7 Nucleated Red Blood Cells # 0.0 Nucleated Red Blood Cells % 0.0 Phosphorus Level 4.4 Platelet Count 179 Potassium Level 4.3 Red Blood Count 3.45 L Red Cell Distribution Width 14.0 Sodium Level 145 H White Blood Count 9.6 Medications Medications Current Medications Lorazepam (Ativan) 0.5 mg Q6H PRN IV ANXIETY; Start 05/06/16 at 01:00 Ondansetron HCl (Zofran Inj) 4 mg Q6H PRN IV NAUSEA AND/OR VOMITING; Start at 01:00 Nitroglycerin (Nitroglycerin (Sl Tab) 0.4 Mg) 1 tab Q5M PRN SL CHEST PAIN; Start 05/06/16 at 01:00 Acetaminophen (Tylenol Tab) 650 mg Q6H PRN PO PAIN LEVEL 1-3 OR FEVER; Start at 01:00 Morphine Sulfate (morphine) 2 mg Q4H PRN IV PAIN LEVEL 7-10; Start 05/06/16 at 01:00 Docusate Sodium (Colace) 100 mg Q12H PRN PO CONSTIPATION; Start 05/06/16 at 01: 00 Famotidine (Pepcid) 20 mg Q12 PO Last administered on 05/06/16 20:48; Admin Dose 20 MG; Start 05/06/16 at 09:00 Heparin Sodium (Porcine) (Heparin (5000 Units/0.5 ml)) 5,000 unit Q12 SC Last administered on 05/07/16 08:58; Admin Dose 5,000 UNIT; Start 05/06/16 at 09:00 Allopurinol (Zyloprim) 100 mg DAILY PO Last administered on 05/06/16 08:14; Admin Dose 100 MG; Start 05/06/16 at 09:00 Atorvastatin Calcium (Lipitor) 40 mg QHS PO Last administered on 05/06/16 20: 47; Admin Dose 40 MG; Start 05/06/16 at 21:00 Calcitriol (Rocaltrol) 0.5 mcg DAILY PO Last administered on 05/06/16 08:13; Admin Dose 0.5 MCG; Start 05/06/16 at 09:00 Cyclosporine (Neoral) 100 mg BID PO Last administered on 05/06/16 20:48; Admin Dose 100 MG; Start 05/06/16 at 09:00 Losartan Potassium (Cozaar) 25 mg DAILY PO Last administered on 05/06/16 08:14 ; Admin Dose 25 MG; Start 05/06/16 at 09:00; Status Future Hold Metoprolol Succinate (Toprol Xl) 25 mg BID PO Last administered on 05/06/16 08 :14; Admin Dose 25 MG; Start 05/06/16 at 09:00 Mycophenolate Mofetil (Cellcept) 1,000 mg BID PO Last administered on 20:48; Admin Dose 1,000 MG; Start 05/06/16 at 09:00 Fish Oil (Fish Oil) 2,000 mg BID PO Last administered on 05/06/16 20:48; Admin Dose 2,000 MG; Start 05/06/16 at 09:00 Prednisone (Prednisone) 5 mg DAILY PO Last administered on 05/06/16 08:14; Admin Dose 5 MG; Start 05/06/16 at 09:00 Diltiazem HCl (Cardizem Cd) 180 mg DAILY PO Last administered on 05/06/16 14: 14; Admin Dose 180 MG; Start 05/06/16 at 13:00 Metoprolol Tartrate 5 mg 5 mg Q4H PRN IV HR>110 Hold SBP<100; Start 05/06/16 at 13:00 Dextrose (D5W) 1,000 ml @ 50 mls/hr Q20H IV Last administered on 05/07/16 08: 51; Admin Dose 50 MLS/HR; Start 05/07/16 at 09:00 JEANNIE GREEN MD May 07, 2016 12:46
[2016-05-07] MEDS ORDERED: REGADENOSON 0.4 MG/5 ML SYG ONE (13:54)
--- NOTE | 2016-05-07 15:08 | PN ---
DATE: 05/07/2016 HOSPITALIST PROGRESS NOTE TIME OF EVALUATION: 1 p.m. SUBJECTIVE DATA: Denies any chest pain or palpitations. The patient awaiting for cardiac stress test. OBJECTIVE DATA: VITAL SIGNS: Temperature 97.8, pulse rate 54, respiratory rate 20, blood pressure 109/66, oxygen saturation 97% on room air. GENERAL: This is a 61-year-old female lying in bed in no apparent distress. HEENT: Head normocephalic and atraumatic. Anicteric sclerae. Conjunctivae clear. ENT: Nasal septum is midline. Oral mucosa is dry. NECK: Supple. No JVD noticed. RESPIRATORY: Bilaterally clear to auscultation. No adventitious breath sounds heard. No use of accessory muscles of respiration. CARDIAC: Regular rate and rhythm with a grade II/ systolic ejection murmur heard at the left sternal border. ABDOMEN: Soft, nontender, and nondistended. Bowel sounds positive in all 4 quadrants. GENITOURINARY: Deferred. EXTREMITIES: No cyanosis, no clubbing. Trace bilateral pedal edema. Peripheral pulses palpable. NEUROLOGIC: The patient is awake, alert, and oriented. Cranial nerves are grossly intact. LABORATORY AND DIAGNOSTIC DATA: WBC 9.6, hemoglobin 9.0, hematocrit 28.8, platelet count 179. Sodium 145, potassium 4.3, chloride 108, carbon dioxide 25 , anion gap 17, BUN 46, creatinine 1.96, glucose 98, calcium 9.1, phosphorus 4.4 , magnesium 1.9. Troponin 0.094. ASSESSMENT AND PLAN: 1. Supraventricular tachycardia. Currently, the patient in sinus rhythm. The patient being followed by cardiology. The patient also on calcium channel blockers for rate control. 2. Positive troponins. The patient's troponins have been normalized now. The patient awaiting a cardiac stress test. 3. Essentially hypertension. Continue antihypertensives. 4. Dyslipidemia. Continue statins. 5. Congestive heart failure exacerbation. Acute on chronic. Diastolic dysfunction. Improving. 6. Status post renal transplant. Continue immunosuppressants. Nephrology following. 7. Fluid, electrolytes and nutrition. Currently n.p.o. for stress test. 8. Deep venous thrombosis prophylaxis. Subcutaneous heparin. 9. Gastrointestinal prophylaxis. Histamine 2 receptor blockers. PLAN: Continue current care. Await cardiac stress test. Case discussed with Dr. Isaac. MANOHAR ISAAC MD, AM/EDDIE Conf#: [id number] DID#: [id number] MTDD
--- NOTE | 2016-05-07 15:53 | ECORPT ---
DATE OF SERVICE: 05/07/2016 REFERRING PHYSICIAN: WENDY XIAO MD. REASON FOR STUDY: Chest pain. DESCRIPTION OF PROCEDURE: The patient was brought to the heart station in a fasting condition. ___ _. The patient had PVCs at baseline but no significant arrhythmia was noted during the infection. She tolerated the injection well. The imaging part of the report will be dictated separately. Dictated By: JEANNIE GREEN MD ML/NTS Conf#: [id number] DID#: [id number]
--- NOTE | 2016-05-07 16:33 | RADRPT ---
PROCEDURE: Nuclear medicine myocardial stress and rest scan. CLINICAL INDICATION: Chest pain. TECHNIQUE: The patient was stressed with 0.4 mg IV Lexiscan. 9.6 mCi technetium 99m Tetrofosmin ( Myoview) was administered rest. 27.7 mCi technetium 99m Tetrofosmin (Myoview) was administered dur ing stress. Images were obtained and reconstructed in the short axis, horizontal long axis, and karon tical long axis. Gated images were obtained and ejection fraction was calculated. COMPARISON: No prior study is available for comparison. FINDINGS: The stress and rest images demonstrate normal uptake throughout. There is no fixed abnormality or r eversible abnormality. There is no evidence of transient ischemic dilatation. Wall motion is normal. There is normal wall thickening during systole. Ejection fraction at stress is 64%. IMPRESSION: 1. No evidence of stress induced myocardial ischemia. 2. Ejection fraction at stress is 64%. RPTAT: QQ .Rusty Colon MD, MD Date Time Electronically viewed and signed by .Rusty Colon MD, on 05/07/2016 16:33 .R/
[2016-05-07] MEDS: ATORVASTATIN 40 MG TAB PO SCH (20:46)
[2016-05-08] VITALS (9 sets, daily range): BP systolic 108–121; BP diastolic 57–71; PULSE 67–79; RESP 16–18
[2016-05-08] MEDS: DEXTROSE 5% 1,000 ML IV SCH (04:13)
[2016-05-08 06:26] LABS: ADD SCAN DIFF NO
[2016-05-08 06:35] LABS: BASOPHILS % 0.2 % (0.0-2.0); EOSINOPHILS # 0.1 10^3/ul (0.0-0.5); EOSINOPHILS % 1.3 % (0.0-7.0); HEMATOCRIT 30.2 % (37.0-47.0); HEMOGLOBIN 9.2 g/dl (12.0-16.0); LYMPHOCYTES # 2.5 10^3/ul (0.8-2.9); LYMPHOCYTES % 28.4 % (15.0-51.0); MEAN CORPUSCULAR HEMOGLOBIN 25.8 pg (29.0-33.0); MEAN CORPUSCULAR HGB CONC 30.5 g/dl (32.0-37.0); MEAN CORPUSCULAR VOLUME 84.8 fl (82.0-101.0); MEAN PLATELET VOLUME 11.7 fl (7.4-10.4); MONOCYTE # 0.9 10^3/ul (0.3-0.9); MONOCYTES % 10.4 % (0.0-11.0); NEUTROPHIL # 5.2 10^3/ul (1.6-7.5); NEUTROPHILS % 59.4 % (39.0-77.0); PLATELET COUNT 134 10^3/UL (140-415); RED BLOOD COUNT 3.56 10^6/ul (4.20-5.40); RED CELL DISTRIBUTION WIDTH 14.1 % (11.5-14.5); WHITE BLOOD COUNT 8.7 10^3/ul (4.8-10.8)
[2016-05-08 06:50] LABS: POTASSIUM 4.6 mmol/L (3.5-5.1)
[2016-05-08 06:53] LABS: CALCIUM 8.9 mg/dl (8.4-10.2); CREATININE 1.9 mg/dl (0.44-1.00); PHOSPHORUS 4.3 mg/dl (2.5-4.9)
[2016-05-08 06:54] LABS: MAGNESIUM 2.1 mg/dl (1.7-2.5)
[2016-05-08] MEDS: ALBUTEROL HFA 8 GM INHALER INH SCH ×2 (08:38→12:09)
[2016-05-08] MEDS ORDERED: FAMOTIDINE 20 MG TAB PO SCH (09:00)
--- NOTE | 2016-05-08 09:11 | PN ---
DATE: 05/08/2016 SUBJECTIVE: The patient is stable. Yesterday had a stress test which showed no evidence of reversi ble defect. The patient's chest pain and shortness of breath have resolved. PHYSICAL EXAMINATION: VITAL SIGNS: Blood pressure 142/66, respirations 16, pulse 78, temperature 98.1. HEENT: Head is normocephalic. NECK: Supple. HEART: Regular rate. LUNGS: Show diminished breath sounds at base. ABDOMEN: Soft, nontender to palpation without rebound or guarding. EXTREMITIES: Negative for clubbing, cyanosis. No edema. DERMATOLOGIC: No rashes. MUSCULOSKELETAL: No joint effusions. NEUROLOGIC: No change in exam. MEDICATIONS: The patient's medications have been reviewed. LABORATORY DATA: Sodium 140, potassium 4.6, chloride 116, BUN 51, creatinine 1.90, white count 8.7, hemoglobin 9.2, hematocrit .2, platelet count is 134. IMAGING STUDIES: The patient's stress test showed no reversible defect. ASSESSMENT AND PLAN: 1. End-stage renal disease status post cadaveric transplant. The patient's renal function is near baseline. The patient's urinalysis showed no evidence of active sediment. At this point, continue current treatment plan. Continue supportive care, renally dose all meds, avoid nephrotoxins. Roberto nue current immunosuppressive regimen. We will continue to hold Cozaar. 2. Acute congestive heart failure exacerbation. The patient clinically improved and appears euvole geoff. Continue current treatment plan. 3. Supraventricular tachycardia. Currently in sinus rhythm. Follow up with cardiology. 4. Chest pain. The patient is status post stress test. No evidence of reversible defect. Continu e current medical management. 5. Mineral bone disorder. Continue to monitor calcium and phosphorus levels. No need for phosphat e binders. 6. Hypernatremia, improved with D5W, continue. 7. Hypertension. Continue current blood pressure regimen. 8. Dyslipidemia. Continue statin therapy. Dictated By: LINDSAY WITT/EDDIE Conf#: [id number] DID#: [id number]
[2016-05-08] MEDS: ALLOPURINOL 100 MG TAB PO SCH (09:23)
[2016-05-08] MEDS: METOPROLOL (XL) 25 MG TAB PO SCH (09:23)
[2016-05-08] MEDS: DILTIAZEM (CD) 180 MG CAP PO SCH (09:23)
[2016-05-08] MEDS: predniSONE 5 MG TAB PO SCH (09:23)
[2016-05-08] MEDS: CALCITRIOL 0.25 MCG CAP PO SCH (09:23)
[2016-05-08] MEDS: CYCLOSPORINE MICROEMULS 100 MG CAP PO SCH (09:24)
[2016-05-08] MEDS: MYCOPHENOLATE 250 MG CAP PO SCH (09:24)
[2016-05-08] MEDS: FISH OIL 1,000 MG CAP PO SCH (09:24)
[2016-05-08] MEDS: HEPARIN 5,000 UNIT/0.5 ML SYG SC SCH (09:26)
--- NOTE | 2016-05-08 12:16 | PDOCDIS ---
Discharge Instructions DIAGNOSIS Discharge Diagnosis: Supraventricular tachycardia. CONDITION Patient Condition: Stable HOME CARE INSTRUCTIONS: Special Diet: renal FOLLOW UP/APPOINTMENTS Appointments Connor Abdi MD Specialty: Internal Medicine Office Address: [address] [place] [address] Office OTHER ORDERS: Other Orders: 1. Take a renal diet. 2. Take medications as per prescription. 3. Follow-up with your primary care physician in one week. If you do not have a primary care physician, please call Dr. Connor Abdi's office. Please arrange with your primary care physician for outpatient cardiology follow-up. 4. Resume activities as tolerated. 5. Please call 911 or go to the nearest emergency room if you have chest pain, palpitations, sudden onset of dizziness, or any other unusual signs/symptoms. MANOHAR YOUSIF NP May 08, 2016 12:16
[2016-05-08] MEDS ORDERED: DILT180C75 PO (12:17)
--- NOTE | 2016-05-08 18:04 | DS ---
DATE OF ADMISSION: 05/06/2016 DATE OF DISCHARGE: 05/08/2016 FINAL DIAGNOSES: 1. Supraventricular tachycardia. Converted to normal sinus rhythm. 2. Non-ST elevation myocardial infarction. Possibly type 2 event from demand ischemia. 3. Essential hypertension. 4. Dyslipidemia. 5. Congestive heart failure exacerbation, diastolic dysfunction, acute on chronic. 6. Status post renal transplant. 7. Normocytic anemia. CONSULTANTS: 1. Redd Deal MD, cardiology. 2. Abhi Heard MD, cardiology. 3. Cruz Caputo MD, nephrology. HOSPITAL COURSE: This is a 61-year-old female with past medical history of essential hypertension, renal transplant, hyperlipidemia, and SVT, who presented to the emergency room with chief complaint of palpitations. The patient denied any chest pain, shortness of breath, loss of consciousness, headaches, urinary or bowel irregularity, fevers, chills, nausea, vomiting, diarrhea, constipation, or other constitutional symptoms. In the emergency room , the patient was noticed to have supraventricular tachycardia. The patient was treated with 2 doses of adenosine with return of the rhythm to normal sinus rhythm. The patient was admitted to inpatient setting provided the patient's history of present illness and diagnostic findings. The patient was started on calcium channel blockers for rate control. Cardiology consult was obtained. The patient's second set of troponins were elevated. However, afterwards, the patient's troponins were trending down and finally normalized. The patient underwent a nuclear medicine cardiac stress test that was negative for any reversible perfusion defects. It was concluded that the patient's elevated troponins could be most probably secondary to demand ischemia. The patient had a recent 2D echocardiogram done on 03/04/2016 that showed stage III to stage IV diastolic dysfunction. The patient was currently in acute on chronic diastolic dysfunction that was treated with cardiac medications with improvement in the symptoms. The patient has history of renal transplant. Hence, the patient was maintained on immunosuppressants for the same. Nephrology was following the patient. At one point of time, the patient's renal function was getting worse. Hence, the patient's angiotensin 2 receptor blockers were put on hold. The patient has underlying essential hypertension. The patient was maintained on antihypertensives for the same. She has underlying dyslipidemia. The patient was maintained on statins. The patient had a stable hospital course. The patient was cleared by consultants to be discharged home. The patient denied any complaints at the time of discharge. DISCHARGE DISPOSITION/PLAN: The patient will be discharged home today. The patient was instructed to take a renal, low-cholesterol diet. The patient was instructed to take medications as per prescription. The patient was instructed to follow up with her primary care physician in 1 week and if she does not have a primary care physician, to please call Dr. Connor Abdi's office. The patient was instructed to please arrange with the primary care physician for outpatient cardiology followup. The patient was instructed to resume activities as tolerated. She was instructed to please call 911 or go to the nearest emergency room if she has any chest pain, palpitations, sudden onset of dizziness or any other unusual signs or symptoms. The patient verbalized understanding of her discharge instructions. CONDITION AT DISCHARGE: Stable. DISCHARGE MEDICATIONS: 1. Diltiazem CD 180 mg p.o. daily. 2. ProAir HFA 8.5 grams inhaled, 2 puffs inhaled q.4h. p.r.n. shortness of breath. 3. Allopurinol 100 mg p.o. daily. 4. Atorvastatin 40 mg p.o. at bedtime. 5. Calcitriol 0.5 mcg p.o. daily. 6. Cyclosporine 100 mg p.o. b.i.d. 7. Colace 100 mg p.o. b.i.d. p.r.n. constipation. 8. Toprol-XL 25 mg p.o. b.i.d. 9. CellCept 1000 mg p.o. b.i.d. 10. Cut Off-3 fatty acids 2000 mg p.o. b.i.d. 11. Prednisone 5 mg p.o. daily. PERTINENT LABORATORY AND DIAGNOSTIC DATA: 1. Nuclear medicine cardiac stress test. No evidence of stress-induced myocardial ischemia. Ejection fraction at stress is 64%. 2. Chest x-ray. Stable cardiomegaly with interval resolution of congestive heart failure pattern and bibasilar subsegmental atelectasis. 3. Latest CBC: WBC 8.7, hemoglobin 9.2, hematocrit 30.2, platelet count 134. 4. Latest BMP: Sodium 140, potassium 4.6, chloride 106, carbon dioxide 20, anion gap 19, BUN 51, creatinine 1.90, glucose 108. 5. Hemoglobin A1c 5.8. 6. Fasting lipid panel: Triglycerides 179, total cholesterol 153, LDL 78, HDL 39. At this time, I would like to thank all the consultants for seeing the patient and providing clinical recommendations. The case and management of this patient was fully discussed with Dr. Isaac. Approximately 35 minutes was spent on coordinating the discharge on this patient. MANOHAR ISAAC MD, AM/EDDIE Conf#: [id number] DID#: [id number] MTDD
[2016-05-10 15:26] LABS: MICROALBUMIN 9.4 mg/dL
== END 2016-05-08 13:15 | disposition home or self-care (01) | DRG 280 ==
LOC: E/R 21:45 → TEL 05-06 00:45
PROVIDERS: ADMIT Student in an Organized Health Care Education/Training Program; ATTEND Student in an Organized Health Care Education/Training Program
DX: I21.4 Non-ST elevation (NSTEMI) myocardial infarction (principal); I50.33 Acute on chronic diastolic (congestive) heart failure; Z94.0 Kidney transplant status; I10 Essential (primary) hypertension; E78.5 Hyperlipidemia, unspecified; D64.9 Anemia, unspecified
CPT/HCPCS: 36415; 71010; 78452; 80048; 80053; 80061; 81001; 81003; 82043; 82550; 82553; 83036; 83735; 83880; 84100; 84155; 84300; 84443; 84484; 85025; 85610; 85730; 93005; 93017; 96374; 96375; A9500; A9505; J0153; J1940; J2060; J2785; J7030; J7070; J7512; J7517

== ENCOUNTER 2016-06-21 14:25 | Emergency (ER) | payer OTHER ==
[~2016-06-21] VITALS: Ht 157.5 cm; Wt 63.5 kg
[~2016-06-21 14:25] MED LIST changes: +ALBU18HF INHALATION; -ALBU8.5H5 IH; -CALC0.2511 PO; +CALC0.5C4 PO; -CHOL400T10 PO; +DILT180C75 PO; -LOSA25TA5 PO
[2016-06-21 14:28] VITALS: Ht 157.5 cm; Wt 63.5 kg
[2016-06-21] MEDS ORDERED: SOD CHLORIDE 0.9% 1,000 ML IV STA (14:37)
[2016-06-21 15:00] LABS: ADD SCAN DIFF NO
[2016-06-21] MEDS ORDERED: DILTIAZEM 25 MG INJ IV ONE (15:00)
[2016-06-21 15:03] LABS: BASOPHILS % 0.2 % (0.0-2.0); EOSINOPHILS # 0.1 10^3/ul (0.0-0.5); EOSINOPHILS % 0.5 % (0.0-7.0); HEMATOCRIT 29.7 % (37.0-47.0); HEMOGLOBIN 9.3 g/dl (12.0-16.0); LYMPHOCYTES # 1.1 10^3/ul (0.8-2.9); LYMPHOCYTES % 10.4 % (15.0-51.0); MEAN CORPUSCULAR HEMOGLOBIN 26.5 pg (29.0-33.0); MEAN CORPUSCULAR HGB CONC 31.3 g/dl (32.0-37.0); MEAN CORPUSCULAR VOLUME 84.6 fl (82.0-101.0); MONOCYTE # 0.4 10^3/ul (0.3-0.9); MONOCYTES % 3.7 % (0.0-11.0); NEUTROPHIL # 8.9 10^3/ul (1.6-7.5); NEUTROPHILS % 84.9 % (39.0-77.0); PLATELET COUNT 185 10^3/UL (140-415); RED BLOOD COUNT 3.51 10^6/ul (4.20-5.40); RED CELL DISTRIBUTION WIDTH 14.3 % (11.5-14.5); WHITE BLOOD COUNT 10.5 10^3/ul (4.8-10.8)
[2016-06-21 15:22] LABS: CHLORIDE 107 mmol/L (97-110); SODIUM 144 mmol/L (135-144)
[2016-06-21 15:25] LABS: ANION GAP 20 (8-16); BLOOD UREA NITROGEN 32 mg/dl (7-20); CARBON DIOXIDE 21 mmol/L (21-31); CREATININE 1.63 mg/dl (0.44-1.00); GLUCOSE 205 mg/dl (70-220)
[2016-06-21 15:26] LABS: CALCIUM 9.5 mg/dl (8.4-10.2)
[2016-06-21 15:27] LABS: CREATINE KINASE 71 IU/L (23-200)
[2016-06-21 15:33] LABS: INR 0.94; PROTIME 12.6 Sec (12.2-14.2)
[2016-06-21 15:34] LABS: CK-MB 1.29 ng/ml (0.0-2.4)
[2016-06-21 15:44] LABS: TROPONIN-I < 0.012 ng/ml (0.00-0.12)
--- NOTE | 2016-06-21 15:44 | RADRPT ---
PROCEDURE: XR Chest. CLINICAL INDICATION: Chest pain. TECHNIQUE: Single frontal view. COMPARISON: 05/05/2016. FINDINGS: The lungs are clear. The heart is enlarged. There is no pleural effusion or pneumothorax. Surgical clips are present in the neck and both upper extremities. IMPRESSION: 1. Cardiomegaly. 2. Clear lungs. 3. Prior neck and bilateral upper extremity surgery. RPTAT: QQ .Rusty Colon MD, MD Date Time Electronically viewed and signed by .Rusty Colon MD, MD on 06/21/2016 15:44 .R/
--- NOTE | 2016-06-21 16:20 | ERD ---
ER Documentation Chief Complaint Date/Time DATE: 06/21/16 TIME: 16:17 Chief Complaint MID CHEST PAIN SINCE 1PM RADIAITING TO NECK AND BACK HPI This 61-year-old female presents to the emergency room for evaluation of chest pain or palpitations. This patient states that her symptoms started 30 minutes prior to arrival. She does state she has a history of a palpitations and is on 2 different medications for them. This patient's heart rate in triage was 170 bpm and she was brought back to the main ER for further evaluation. She denies any shortness of breath associated with these palpitations, and denies any excessive caffeine consumption this morning. She states that the palpitations occurred while she was washing dishes. ROS All systems reviewed and are negative except as per history of present illness. Medications Home Meds Active Scripts Diltiazem Hcl* (Cardizem CD*) 180 Mg Cap.sr.24h, 180 MG PO DAILY for 30 Days Prov:MANOHAR YOUSIF BUSINESS LEADER 05/08/16 Reported Medications Calcitriol* (Calcitriol*) 0.5 Mcg Capsule, 0.5 MCG PO DAILY, CAP 05/05/16 Albuterol Sulfate* (Ventolin HFA*) 18 Gm Hfa.aer.ad, 2 PUFF INHALATION Q4H, #1 INHALER 05/05/16 Docusate Sodium* (Doc-Q-Lace*) 100 Mg Capsule, 100 MG PO BID Y for CONSTIPATION , CAP 03/04/16 Atorvastatin* (Atorvastatin*) 40 Mg Tablet, 40 MG PO QHS, #30 TAB 03/04/16 Cyclosporine* (Cyclosporine* Modified) 25 Mg Capsule, 100 MG PO BID, #120 CAP 03/04/16 Allopurinol* (Allopurinol*) 100 Mg Tablet, 100 MG PO DAILY, TAB 01/08/14 Acetaminophen* (Acetaminophen*) 325 Mg Tablet, 325 MG PO Q6 Y for PAIN AND OR ELEVATED TEMP, TAB 01/08/14 Prednisone* (Prednisone*) 5 Mg Tab, 5 MG PO DAILY, TAB 01/08/14 Mycophenolate Mofetil* (Cellcept*) 500 Mg Tablet, 1000 MG PO BID, TAB 01/08/14 Metoprolol Succinate* (Toprol XL*) 25 Mg Tab.sr.24h, 25 MG PO BID, TAB 01/08/14 [place]-3 Fatty Acids/Fish Oil* (Fish Oil *) 1,000 Mg Capsule, 2000 MG PO BID, CAP 01/08/14 Allergies Allergies: Coded Allergies: No Known Allergy (Unverified , 06/21/16) PMhx/Soc History of Surgery: Yes (Kidney Transplant 1998) Anesthesia Reaction: No Hx Neurological Disorder: No Hx Respiratory Disorders: No Hx Cardiac Disorders: Yes (HTN, High Cholesterol ) Hx Psychiatric Problems: No Hx Miscellaneous Medical Probl: No Hx Alcohol Use: No Hx Substance Use: No Hx Tobacco Use: No Smoking Status: Never smoker Physical Exam Vitals Vital Signs Date Time Temp Pulse Resp B/P Pulse Ox O2 Delivery O2 Flow Rate FiO2 06/21/16 14:45 85 20 131/85 99 Nasal Cannula 06/21/16 14:30 Nasal Cannula 2 06/21/16 14:28 98.2 168 25 161/100 100 Physical Exam INITIAL VITAL SIGNS: Reviewed by me GENERAL: The patient is well developed mild distress HEENT: Pupils equal, round, and reactive to light. EOMI. There is no scleral icterus. NECK: C-spine is soft and supple, there is no meningismus. There is no cervical lymphadenopathy. LUNGS: Clear to auscultation bilaterally. There are no rales, wheezes or rhonchi. HEART: Tachycardic, no murmurs, clicks, rubs or gallops. ABDOMEN: Soft, non-tender, non-distended. There are bowel sounds in all four quadrants. No rebound or guarding. EXTREMITIES: There is no peripheral cyanosis or edema. No focal swelling or erythema. NEUROLOGICAL: The patient moves all four extremities with 5/5 strength. Cranial nerves II - XII are intact. Normal gait. Alert and oriented SKIN: There is no apparent rash or petechiae. HEME/LYMPHATIC: There is no evidence of excessive bruising or lymphedema. PSYCHIATRIC: The patient does not appear anxious or depressed. Result Diagram: 06/21/16 1440 06/21/16 1440 Results 24 hrs Laboratory Tests Test 06/21/16 14:40 White Blood Count 10.510^3/ul Red Blood Count 3.5110^6/ul Hemoglobin 9.3g/dl Hematocrit 29.7% Mean Corpuscular Volume 84.6fl Mean Corpuscular Hemoglobin 26.5pg Mean Corpuscular Hemoglobin Concent 31.3g/dl Red Cell Distribution Width 14.3% Platelet Count 13013^3/UL Mean Platelet Volume 11.0fl Neutrophils % 84.9% Lymphocytes % 10.4% Monocytes % 3.7% Eosinophils % 0.5% Basophils % 0.2% Nucleated Red Blood Cells % 0.0/100WBC Neutrophils # 8.910^3/ul Lymphocytes # 1.110^3/ul Monocytes # 0.410^3/ul Eosinophils # 0.110^3/ul Basophils # 0.010^3/ul Nucleated Red Blood Cells # 0.010^3/ul Prothrombin Time 12.6Sec Prothrombin Time Ratio 1.0 INR International Normalized Ratio 0.94 Activated Partial Thromboplast Time 27.0Sec Sodium Level 144mmol/L Potassium Level 4.0mmol/L Chloride Level 107mmol/L Carbon Dioxide Level 21mmol/L Anion Gap 20 Blood Urea Nitrogen 32mg/dl Creatinine 1.63mg/dl Glucose Level 205mg/dl Calcium Level 9.5mg/dl Creatine Kinase 71IU/L Creatine Kinase Index 1.8 Creatinine Kinase MB (Mass) 1.29ng/ml Troponin I < 0.012ng/ml Current Medications Medications (Trade) Dose Ordered Sig/Verna Route PRN Reason Start Time Stop Time Status Last Admin Dose Admin Sodium Chloride (NS) 1,000 ml @ 1,000 mls/hr Q1H STAT IV 06/21/16 14:37 06/21/16 15:36 DC 06/21/16 15:10 Diltiazem HCl (Cardizem Iv) 10 mg ONCE ONCE IV 06/21/16 15:00 06/21/16 15:01 DC 06/21/16 14:37 Procedures/MDM EKG: Rate/Rhythm: AV nataliya reentrant tachycardia QRS, ST, T-waves: [No changes consistent w/ acute ischemia] Impression: [No evidence of ischemia or arrhythmia] EKG: #2 Rate/Rhythm: [Normal Sinus Rhythm] QRS, ST, T-waves: [No changes consistent w/ acute ischemia] Impression: [No evidence of ischemia or arrhythmia] Chest X-ray 1V Interpreted by me: Soft Tissue: No acute abnormalities Bones: No acute abnormalities Mediastinum/Cardiac Silhouette/Lungs: [No acute abnormalities] This 71-year-old female presents to the emergency room for evaluation of heart palpitations. When I evaluated her she did have a a heart rate of 170 bpm. EKG was obtained. This patient was not in SVT, and in fact was an AV nataliya reentrant tachycardia. The patient was compared with 10 mg of Cardizem IV. She has been observed for 1 hour post chemical cardioversion, she is in no acute distress, and has no heart palpitations. This patient was seen previously in the hospital by her library page, Dr. Deal. I have contacted Dr. Deal who recommends to increase the dose of Cardizem to 240 mg from 180 mg. I have relayed this information to the family and they verbalized understanding. The patient will be discharged home at this time with instructions to follow-up with Dr. Deal in office. Cardiac Critical Care: Excluding all billable procedures Time: 33 minutes Treatments/Evaluations: Close monitoring for dangerous arrhythmia and cardiovascular collapse, while treating with advance cardiac medications and techniques. 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
[2016-06-21] MEDS ORDERED: DILT240C79 PO (16:30)
[2016-06-21] MEDS ORDERED: DILTIAZEM 60 MG TAB PO ONE (16:30)
[2016-06-21 16:34] VITALS: BP 134/82; PULSE 80; RESP 18
== END 2016-06-21 16:36 | disposition home or self-care (01) ==
LOC: E/R 14:25
DX: I47.1 Supraventricular tachycardia (principal); R00.2 Palpitations; D64.9 Anemia, unspecified; R40.2142 Coma scale, eyes open, spontaneous, at arrival to emergency department; R40.2252 Coma scale, best verbal response, oriented, at arrival to emergency department; R40.2362 Coma scale, best motor response, obeys commands, at arrival to emergency department; I10 Essential (primary) hypertension
CPT/HCPCS: 36415; 71010; 80048; 82550; 82553; 84484; 85025; 85610; 85730; 93005; 96374; J7030; Z7502; Z7610

== ENCOUNTER 2017-01-16 15:16 | Inpatient (IN) | END 2017-01-20 15:55 | disposition home or self-care (01) | DRG 308 | DX: I48.0 Paroxysmal atrial fibrillation (principal); I50.31 Acute diastolic (congestive) heart failure; T86.12 Kidney transplant failure; E87.0 Hyperosmolality and hypernatremia; Z94.0 Kidney transplant status; N18.3 Chronic kidney disease, stage 3 (moderate); E78.5 Hyperlipidemia, unspecified; I12.9 Hypertensive chronic kidney disease with stage 1 through stage 4 chronic kidney disease, or unspecified chronic kidney disease; R07.9 Chest pain, unspecified; Z79.52 Long term (current) use of systemic steroids; M10.9 Gout, unspecified; E87.5 Hyperkalemia; E03.9 Hypothyroidism, unspecified; D64.9 Anemia, unspecified ==

== ENCOUNTER 2017-02-09 02:49 | Inpatient (IN) | payer OTHER ==
[~2017-02-09] VITALS: Ht 157.5 cm; Wt 50.0 kg
[2017-02-09] VITALS (7 sets, daily range): BP systolic 115–128; BP diastolic 72–81; PULSE 83–93; RESP 20; TEMP 98.7
[~2017-02-09 02:49] MED LIST changes: +APIX5TAB PO; +CYCL25CA10 PO; -CYCL25CA2 PO; +DRON400T2 PO; +METO-335 PO; -METO25TA7 PO; -PRED5 PO; +PRED5TAB PO
[2017-02-09] MEDS ORDERED: SOD CHLORIDE 0.9% 1,000 ML IV ONE (03:00)
[2017-02-09] MEDS ORDERED: DILTIAZEM 25 MG INJ IV ONE (03:00)
--- NOTE | 2017-02-09 03:42 | RADRPT ---
PROCEDURE: CHEST - 1 VIEW CLINICAL INDICATION: 61-year-old female with chest pain. TECHNIQUE: A single frontal AP upright portable view of the chest was performed. The images were reviewed on a PACS workstation. COMPARISON: Chest x-ray June 21, 2016; Chest x-ray May 05, 2016. FINDINGS: Multiple surgical clips are seen within the lower neck presumably from prior thyroidectomy. The card iomediastinal silhouette is mildly enlarged. There is mild left basilar subsegmental atelectasis. Th ere is no evidence for an infiltrate. There is no evidence for congestive heart failure. There is n o evidence for pneumothorax. Surgical clips are seen within the axillary regions bilaterally. Multip le upper extremity soft tissue calcifications are noted. The osseous structures are intact. IMPRESSION: 1. Mild cardiomegaly. 2. Mild left basilar subsegmental atelectasis. 3. Multiple surgical clips within the upper extremity soft tissues and lower neck. .Gary Aguilar MD, MD Date Time Electronically viewed and signed by .Gary Aguilar MD, on 02/09/2017 03:42 .M/
[2017-02-09 04:04] LABS: BASOPHILS % 0.2 % (0.0-2.0); EOSINOPHILS # 0.1 10^3/ul (0.0-0.5); HEMATOCRIT 32.7 % (37.0-47.0); HEMOGLOBIN 10.3 g/dl (12.0-16.0); LYMPHOCYTES # 2.1 10^3/ul (0.8-2.9); LYMPHOCYTES % 22.2 % (15.0-51.0); MEAN CORPUSCULAR HEMOGLOBIN 26.1 pg (29.0-33.0); MEAN CORPUSCULAR HGB CONC 31.5 g/dl (32.0-37.0); MEAN PLATELET VOLUME 11.1 fl (7.4-10.4); MONOCYTES % 10.1 % (0.0-11.0); NEUTROPHIL # 6.3 10^3/ul (1.6-7.5); NEUTROPHILS % 66.3 % (39.0-77.0); PLATELET COUNT 199 10^3/UL (140-415); RED BLOOD COUNT 3.94 10^6/ul (4.20-5.40); RED CELL DISTRIBUTION WIDTH 14.6 % (11.5-14.5); WHITE BLOOD COUNT 9.6 10^3/ul (4.8-10.8)
[2017-02-09 04:07] LABS: ALBUMIN 4.5 g/dl (3.3-4.9); ALBUMIN/GLOBULIN RATIO 1.36; BILIRUBIN,INDIRECT 0.2 mg/dl (0-1.1); BILIRUBIN,TOTAL 0.2 mg/dl (0.2-1.3); CALCIUM 9.4 mg/dl (8.4-10.2); CREATININE 1.45 mg/dl (0.44-1.00); POTASSIUM 3.9 mmol/L (3.5-5.1); TOTAL PROTEIN 7.8 g/dl (6.1-8.1)
[2017-02-09 04:18] LABS: TROPONIN-I 0.022 ng/ml (0.00-0.12)
--- NOTE | 2017-02-09 04:19 | ERD ---
ER Documentation Chief Complaint Chief Complaint bib ra 39 from home for palpitations and chest pain HPI This is a 61-year-old female who was brought in from home for palpitations and chest pains. Patient has history of atrial fibrillation. She said she woke up with palpitations. No nausea no vomiting no chills. No other current complaints. Chest pain is mild to moderate intensity pressure-like with no exacerbating or limiting factors ROS All systems reviewed and are negative except as per history of present illness. Medications Home Meds Active Scripts Dronedarone Hydrochloride* (Multaq*) 400 Mg Tablet, 400 MG PO BID WITH MEALS for 60 Days, TAB Prov:CAMILO AMIN MD 01/19/17 Apixaban* (Eliquis*) 5 Mg Tablet, 2.5 MG PO BID for 60 Days, TAB Prov:CAMILO AMIN MD 01/19/17 Diltiazem Hcl* (Cardizem CD*) 180 Mg Cap.sr.24h, 180 MG PO DAILY for 30 Days Prov:MANOHAR YOUSIF NP 05/08/16 Reported Medications Calcitriol* (Calcitriol*) 0.5 Mcg Capsule, 0.5 MCG PO DAILY, CAP 05/05/16 Albuterol Sulfate* (Ventolin HFA*) 18 Gm Hfa.aer.ad, 2 PUFF INHALATION Q4H, #1 INHALER 05/05/16 Docusate Sodium* (Doc-Q-Lace*) 100 Mg Capsule, 100 MG PO BID Y for CONSTIPATION , CAP 03/04/16 Atorvastatin* (Atorvastatin*) 40 Mg Tablet, 40 MG PO QHS, #30 TAB 03/04/16 Cyclosporine* (Cyclosporine* Modified) 25 Mg Capsule, 100 MG PO BID, #120 CAP 03/04/16 Allopurinol* (Allopurinol*) 100 Mg Tablet, 100 MG PO DAILY, TAB 01/08/14 Acetaminophen* (Acetaminophen*) 325 Mg Tablet, 325 MG PO Q6 Y for PAIN AND OR ELEVATED TEMP, TAB 01/08/14 Prednisone* (Prednisone*) 5 Mg Tab, 5 MG PO DAILY, TAB 01/08/14 Mycophenolate Mofetil* (Cellcept*) 500 Mg Tablet, 1000 MG PO BID, TAB 01/08/14 Metoprolol Succinate* (Toprol XL*) 25 Mg Tab.sr.24h, 25 MG PO BID, TAB 01/08/14 [place]-3 Fatty Acids/Fish Oil* (Fish Oil *) 1,000 Mg Capsule, 2000 MG PO BID, CAP 01/08/14 Allergies Allergies: Coded Allergies: No Known Allergy (Unverified , 06/21/16) PMhx/Soc History of Surgery: Yes (kidney transplant, thyroidectomy, fistula ) Anesthesia Reaction: No Hx Neurological Disorder: No Hx Respiratory Disorders: Yes (PNA, bronchitis) Hx Cardiac Disorders: Yes (tachyarrhythmia, SVT,. chest pain) Hx Psychiatric Problems: No Hx Miscellaneous Medical Probl: Yes (gout) Hx Alcohol Use: No Hx Substance Use: No Hx Tobacco Use: No Smoking Status: Never smoker Physical Exam Vitals Vital Signs Date Time Temp Pulse Resp B/P Pulse Ox O2 Delivery O2 Flow Rate FiO2 02/09/17 02:55 98.9 118 19 116/81 100 Physical Exam Const: [] Head: Atraumatic Eyes: Normal Conjunctiva ENT: Normal External Ears, Nose and Mouth. Neck: Full range of motion..~ No meningismus. Resp: Clear to auscultation bilaterally Cardio: Regular rate and rhythm, no murmurs Abd: Soft, non tender, non distended. Normal bowel sounds Skin: No petechiae or rashes Back: No midline or flank tenderness Ext: No cyanosis, or edema Neur: Awake and alert Psych: Normal Mood and Affect Result Diagram: 02/09/17 0325 Results 24 hrs Laboratory Tests Test 02/09/17 03:25 White Blood Count 9.610^3/ul Red Blood Count 3.9410^6/ul Hemoglobin 10.3g/dl Hematocrit 32.7% Mean Corpuscular Volume 83.0fl Mean Corpuscular Hemoglobin 26.1pg Mean Corpuscular Hemoglobin Concent 31.5g/dl Red Cell Distribution Width 14.6% Platelet Count 63645^3/UL Mean Platelet Volume 11.1fl Neutrophils % 66.3% Lymphocytes % 22.2% Monocytes % 10.1% Eosinophils % 1.0% Basophils % 0.2% Nucleated Red Blood Cells % 0.0/100WBC Neutrophils # 6.310^3/ul Lymphocytes # 2.110^3/ul Monocytes # 1.010^3/ul Eosinophils # 0.110^3/ul Basophils # 0.010^3/ul Nucleated Red Blood Cells # 0.010^3/ul Current Medications Medications (Trade) Dose Ordered Sig/Verna Route PRN Reason Start Time Stop Time Status Last Admin Dose Admin Diltiazem HCl 20 mg 20 mg ONCE ONCE IV 02/09/17 03:00 02/09/17 03:01 DC 02/09/17 03:40 Sodium Chloride (NS) 1,000 ml @ 1,000 mls/hr Q1H ONCE IV 02/09/17 03:00 02/09/17 03:59 DC 02/09/17 03:41 Procedures/MDM Chest X-ray 1V Interpreted by me: Soft Tissue: No acute abnormalities Bones: No acute abnormalities Mediastinum/Cardiac Silhouette/Lungs: [No acute abnormalities] EKG: Rate/Rhythm: Cardiac rate with a regular rhythm QRS, ST, T-waves: [No changes consistent w/ acute ischemia] Impression: A. fib with RVR Rhythm strip: Post Cardizem infusion Rate/Rhythm: Normal rate irregular rhythm Impression: No evidence of ischemia or arrhythmia] Patient's symptoms are concerning for cardiac cause will require inpatient workup and continuous monitoring. Further w/u for ischemia, arrhythmia, PE or dissection will be deferred to the inpatient team. Accepting Care Team: Current data and ongoing care discussed. Time: 4:30 AM Primary Provider: Dr. Wray Consulting: [[place]] Outstanding Data: none Critical Care: Time: 45 minutes Treatments/Evaluations: Close monitoring and treatment of unstable vital signs, cardiorespiratory, and neurologic status, while maintaining tight balance of fluid, respiratory, and cardiac interventions. This time is independent of any separately billable procedural time Departure Diagnosis: Primary Impression: Chest pain Chest pain type: unspecified Qualified Code: R07.9 - Chest pain, unspecified type Additional Impression: Atrial fibrillation with RVR Condition: Serious YUDELKANICOLLECARIDADWENDYDeisy Feb 09, 2017 04:19
[2017-02-09] MEDS ORDERED: ACETAMINOPHEN 325 MG TAB PO PRN (06:00)
[2017-02-09] MEDS ORDERED: ONDANSETRON 4 MG TAB PO PRN (06:00)
[2017-02-09] MEDS ORDERED: NACL 0.9% 3 ML SYG IV SCH ×2 (06:00→12:00)
[2017-02-09] MEDS ORDERED: NITROGLYCERIN (SL) 0.4 MG TAB SL PRN (06:00)
[2017-02-09] MEDS: METOPROLOL (XL) 25 MG TAB PO SCH ×2 (09:00→21:27)
[2017-02-09] MEDS: MYCOPHENOLATE 250 MG CAP PO SCH ×2 (09:00→21:29)
[2017-02-09] MEDS: CYCLOSPORINE MICROEMULS 100 MG CAP PO SCH ×2 (09:00→21:26)
[2017-02-09] MEDS ORDERED: CYCLOSPORINE MICROEMULS 25 MG CAP PO SCH (09:00)
[2017-02-09] MEDS: DILTIAZEM (CD) 180 MG CAP PO SCH (09:00)
[2017-02-09] MEDS: APIXABAN 5 MG TABLET PO SCH ×2 (09:00→21:28)
--- NOTE | 2017-02-09 09:10 | CONS ---
Date/Time of Note Date/Time of Note DATE: 02/09/17 TIME: 09:09 Assessment/Plan Assessment/Plan Chief Complaint/Hosp Course 1. P AFIB 2. hx of renal transplant 3. HTN 4. CKD need to resume home meds including multaq. pt was not given her multaq at home. cysclosporine adjustment as per renal , considering interaction with multaq SHONDA MORENO MD [facility] Problems: Consultation Date/Type/Reason Admit Date/Time Feb 09, 2017 at 04:13 Date of Consultation: Feb 09, 2017 Type of Consultation: card Reason for Consultation AFIB Referring Provider: JOSH MILLER NP Hx of Present Illness cc: palpitations HPI: Thank you for this consultation. This is a pleasant 61 year female with history of P afib who is here for recurrence of her palpitations. it started last night. she came in to ER and was in Afib RVR but has converted to NSR already no chest pain PAST MEDICAL HISTORY: As stated above, history of end-stage renal disease, history of chronic kidney disease, history of hypertension, history of dyslipidemia, history of gout.Pafib. PAST SURGICAL HISTORY: Status post cadaveric renal transplant. FAMILY HISTORY: Noncontributory. SOCIAL HISTORY: Does not drink, smoke or do drugs. MEDICATIONS: The patient's medications have been reviewed. ROS: as above Social History Smoking Status: Never smoker Exam/Review of Systems Vital Signs Vitals Vital Signs Date Time Temp Pulse Resp B/P Pulse Ox O2 Delivery O2 Flow Rate FiO2 02/09/17 07:33 98.7 89 18 129/89 100 Room Air 02/09/17 07:29 2 Exam General: no acute distress HEENT: NC/AT. pupils are equal. round. NECK: NO JVD. no stridor. CV: RRR. systolic murmur; no gallop or rubs. PULM: no wheezing or rhonchi. GI: SOFT, NT, ND, no rebound or guarding Extremity: trace B/L LE edema. no clubbing. neuro: awake and alert, OX3. Psych: calm and pleasant rectal: deferred Results Result Diagram: 02/09/17 0325 02/09/17 0325 Results 24 hrs Laboratory Tests Test 02/09/17 03:25 White Blood Count 9.6 Red Blood Count 3.94 L Hemoglobin 10.3 L Hematocrit 32.7 L Mean Corpuscular Volume 83.0 Mean Corpuscular Hemoglobin 26.1 L Mean Corpuscular Hemoglobin Concent 31.5 L Red Cell Distribution Width 14.6 H Platelet Count 199 Mean Platelet Volume 11.1 H Neutrophils % 66.3 Lymphocytes % 22.2 Monocytes % 10.1 Eosinophils % 1.0 Basophils % 0.2 Nucleated Red Blood Cells % 0.0 Neutrophils # 6.3 Lymphocytes # 2.1 Monocytes # 1.0 H Eosinophils # 0.1 Basophils # 0.0 Nucleated Red Blood Cells # 0.0 Sodium Level 151 H Potassium Level 3.9 Chloride Level 112 H Carbon Dioxide Level 23 Anion Gap 20 H Blood Urea Nitrogen 30 H Creatinine 1.45 H Glucose Level 105 Calcium Level 9.4 Total Bilirubin 0.2 Direct Bilirubin 0.00 Indirect Bilirubin 0.2 Aspartate Amino Transf (AST/SGOT) 19 Alanine Aminotransferase (ALT/SGPT) 28 Alkaline Phosphatase 109 Troponin I 0.022 B-Type Natriuretic Peptide 1900 H Total Protein 7.8 Albumin 4.5 Globulin 3.30 H Albumin/Globulin Ratio 1.36 Medications Medications Current Medications Apixaban (Eliquis) 2.5 mg BID PO ; Start 02/09/17 at 09:00 Diltiazem HCl (Cardizem Cd) 180 mg DAILY PO ; Start 02/09/17 at 09:00 Metoprolol Succinate (Toprol Xl) 25 mg BID PO ; Start 02/09/17 at 09:00 Mycophenolate Mofetil (Cellcept) 1,000 mg BID PO ; Start 02/09/17 at 09:00 Ondansetron HCl (Zofran Tab) 4 mg Q6H PRN PO NAUSEA AND/OR VOMITING; Start at 06:00 Nitroglycerin (Nitroglycerin (Sl Tab) 0.4 Mg) 1 tab Q5M PRN SL CHEST PAIN; Start 02/09/17 at 06:00 Acetaminophen (Tylenol Tab) 650 mg Q6H PRN PO PAIN LEVEL 1-3 OR FEVER; Start 02/09/17 at 06:00 Cyclosporine (Neoral) 100 mg BID PO ; Start 02/09/17 at 09:00 SHONDA MORENO MD Feb 09, 2017 09:10
[2017-02-09 11:31] LABS: CK-MB 1.39 ng/ml (0.0-2.4); TROPONIN-I 0.018 ng/ml (0.00-0.12)
--- NOTE | 2017-02-09 11:36 | HP ---
Date/Time of Note Date/Time of Note DATE: 02/09/17 TIME: 11:36 Assessment/Plan VTE Prophylaxis VTE Prophylaxis Intervention: ambulation, SCD's Lines/Catheters IV [facility]from [facility] [place] Assessment/Plan Chief Complaint/Hosp Course 61-year-old female with a history of paroxysmal atrial fibrillation, CKD stage III, renal transplant, who presented to the emergency room with chest discomfort and palpitation and noted to have atrial fibrillation with RVR. 1. Paroxysmal atrial fibrillation with RVR. Converted back to normal sinus rhythm. Status post Cardizem IV bolus in the emergency room. -Cardiology consult. Will follow up on recommendations regarding resuming Multaq with appropriate cyclosporine dosage. -Continue beta-blockers, Cardizem for rate control. Continue Eliquis for anticoagulation. 2. Hypernatremia. -We will place a nephrology consultation and we will follow-up with recommendation. 3.Essential hypertension. -Resume home medications. 4. Hypercholesterolemia. -Resume statin. 5.End-stage renal disease. status post cadaveric renal transplant in 1998 -on immunosuppression -Follow-up with nephrology recommendation on cyclosporine dosage. 6.CKD stage III. Currently her renal function appears at baseline. -We will monitor renal function closely and follow-up with nephrology recommendations. Avoid nephrotoxins. 7. Gout. No flares. -Resume home medications. 8. Anemia of kidney disease. H&H stable. Will monitor. DVT prophylaxis: SCDs PUD prophylaxis: H2 blockers. Plan: Plan is to restart patient on Multaq. Follow-up with nephrology recommendation and cyclosporine dosing. Rest of the management depend on hospital course. Patient is seen in collaboration with . Approximately 60 minutes was spent on this history and physical. Problems: HPI/ROS Admit Date/Time Admit Date/Time Feb 09, 2017 at 04:13 Hx of Present Illness This is a 64-year-old female with a past medical history of paroxysmal atrial fibrillation , end-stage renal disease status post cadaveric renal transplant in 1998-on immunosuppression, CKD stage III, hypertension, dyslipidemia, gout, who presented to the emergency room for palpitations and chest discomfort. Apparently, patient was recently discharged from [facility] on Multaq and Eliquis for atrial fibrillation. However, patient was unable to fill in Multaq along with her cyclosporine due to possible interaction per her pharmacist recommendation. Patient did not have any shortness of breath, nausea , vomiting, abdominal discomfort, notes of consciousness, cough, dizziness, numbness, tingling, bleeding episodes or other constitutional symptoms. EKG showed atrial fibrillation with rapid ventricular rate. Patient was given Cardizem 20 mg IV with normal saline IV fluids in the emergency room and was admitted for further evaluation. Patient was converted back to normal sinus rhythm. Her initial labs with hemoglobin 10.3 and hematocrit 32.7, sodium 151, BUN 30 and creatinine 1.45. Patient also had a BNP 1900. Troponin negative. Vital signs within acceptable range. ROS A 12 point review of system was assessed and is negative other than what is mentioned in the HPI. PMH/Family/Social Past Medical History See HPI Past Surgical History See HPI Social History Denies any history of alcohol, smoking or illicit drug use. Smoking Status: Never smoker Exam/Review of Systems Vital Signs Vitals Vital Signs Date Time Temp Pulse Resp B/P Pulse Ox O2 Delivery O2 Flow Rate FiO2 02/09/17 07:33 98.7 89 18 129/89 100 Room Air 02/09/17 07:29 2 Exam Exam General: Well developed,adequately built, not in any acute distress . HEENT: Normocephalic, Atraumatic, No laceration or hematoma; Eyes: PEERL, Conjunctiva clear, Anicteric sclera Neck: Supple without any lymphadenopathy, nontender, no JVD, no carotid bruits, trachea midline, no thyromegaly Cardiac: S1, S2 auscultated, regular rhythm and rate, no mumurs or gallop Pulmonary: Normal respiratory effort. Chest clear to auscultation bilaterally, no adventitious breath sounds GI: Abdomen normal to inspection. Soft, non tender, non- distended, no masses, no rebound tenderness or guarding. Bowel sounds active on all four quadrants Genitourinary: Deferred Extremities: No cyanosis, clubbing, or edema. Pulses [2+] bilaterally. Full ROM on all four extremities. No focal weakness appreciated. Neurologic: Alert to person, place, time, and situation. Affect appropriate, intact sensation. Skin: Clean,dry, and intact. No ecchymosis, no rashes, or lesions Labs Result Diagram: 02/09/17 0325 02/09/17 0325 Medications Medications Current Medications Apixaban (Eliquis) 2.5 mg BID PO Last administered on 02/09/17 09:00; Admin Dose 2.5 MG; Start 02/09/17 at 09:00 Diltiazem HCl (Cardizem Cd) 180 mg DAILY PO ; Start 02/09/17 at 09:00 Metoprolol Succinate (Toprol Xl) 25 mg BID PO Last administered on 02/09/17 09:00; Admin Dose 25 MG; Start 02/09/17 at 09:00 Mycophenolate Mofetil (Cellcept) 1,000 mg BID PO Last administered on 09:00; Admin Dose 1,000 MG; Start 02/09/17 at 09:00 Ondansetron HCl (Zofran Tab) 4 mg Q6H PRN PO NAUSEA AND/OR VOMITING; Start at 06:00 Nitroglycerin (Nitroglycerin (Sl Tab) 0.4 Mg) 1 tab Q5M PRN SL CHEST PAIN; Start 02/09/17 at 06:00 Acetaminophen (Tylenol Tab) 650 mg Q6H PRN PO PAIN LEVEL 1-3 OR FEVER; Start 02/09/17 at 06:00 Cyclosporine (Neoral) 100 mg BID PO Last administered on 02/09/17 09:00; Admin Dose 100 MG; Start 02/09/17 at 09:00 JOSH MILLER NP Feb 09, 2017 11:36
[2017-02-09] MEDS ORDERED: ONDANSETRON 4 MG INJ IV PRN (12:00)
[2017-02-09] MEDS ORDERED: HYDROCODONE/APAP (5/325) TAB PO PRN (12:00)
[2017-02-09] MEDS: DOCUSATE SODIUM 100 MG CAP PO SCH ×2 (12:00→21:00)
[2017-02-09] MEDS ORDERED: ALBUTEROL/IPRATROPIUM (NEB) 3 ML AMP HHN PRN (13:00)
[2017-02-09] MEDS: predniSONE 5 MG TAB PO SCH (13:53)
[2017-02-09] MEDS: CALCITRIOL 0.25 MCG CAP PO SCH (13:54)
[2017-02-09] MEDS: ALLOPURINOL 100 MG TAB PO SCH (13:55)
[2017-02-09 16:02] LABS: CK-MB 1.2 ng/ml (0.0-2.4); TROPONIN-I 0.063 ng/ml (0.00-0.12)
[2017-02-09] MEDS ORDERED: DEXTROSE 5% 1,000 ML IV SCH (16:30)
[2017-02-09] MEDS: FISH OIL 1,000 MG CAP PO SCH (21:00)
[2017-02-09] MEDS: ATORVASTATIN 40 MG TAB PO SCH (21:26)
[2017-02-09] MEDS: FAMOTIDINE 20 MG TAB PO SCH (21:27)
--- NOTE | 2017-02-09 21:33 | CONS ---
DATE OF ADMISSION: 02/09/2017 DATE OF CONSULTATION: CHIEF COMPLAINT: Status post renal transplant, chronic kidney disease, hypernatremia. PHYSICIAN REQUESTING CONSULT: . HISTORY OF PRESENT ILLNESS: This is a 61-year-old female with a past medical history of end-stage r enal disease status post cadaveric renal transplant in 1998 with a baseline creatinine of 1.5 to 1.7 mg/dL. The patient also has a history of hypertension, dyslipidemia and gout and has had multiple admissions to [facility] for chest pain, palpitations and arrhythmia. The patient presents to [facility] with chest pain and palpitations. Upon arrival, EKG showe d Afib with rapid ventricular rate. The patient was given Cardizem 20 mg IV and IV fluids in the em ergency room. Laboratory data drawn in the emergency room also showed sodium 151, BUN 30, creatinin e 1.45 mg/dL. In terms of the patient's renal history, as stated above, she has a history of cadaveric renal trans plant in 1998. The patient has been on triple therapy, cyclosporine, mycophenolate and prednisone. The patient states, however, she has been unable to fill her Multaq due to possible interaction wit h cyclosporine. The patient sees a primary sales inspector in the outpatient setting but does not savanna mber the sales inspector's name. PAST MEDICAL HISTORY: As stated above, history of end-stage renal disease, history of chronic kidne y disease, history of hypertension, history of dyslipidemia, history of gout. PAST SURGICAL HISTORY: Status post cadaveric renal transplant. FAMILY HISTORY: Noncontributory. SOCIAL HISTORY: Does not drink, smoke or do drugs. MEDICATIONS: The patient's medications have been reviewed. REVIEW OF SYSTEMS: A 14-point review of systems was conducted. Pertinent positives in HPI, otherwi se negative. PHYSICAL EXAMINATION: VITAL SIGNS: Blood pressure is 140/76, respiration 18, pulse 92, temperature 98.6. HEENT: Head is normocephalic. NECK: Supple. HEART: Regular rate. LUNGS: Show diminished breath sounds at the base. ABDOMEN: Soft, nontender to palpation. No rebound or guarding. EXTREMITIES: Negative for clubbing, cyanosis. No edema. DERMATOLOGIC: No rashes. MUSCULOSKELETAL: No joint effusion. NEUROLOGIC: No focal deficits. LABORATORY DATA: Shows white count 9.6, hemoglobin 10.3, hematocrit 32.7, platelet count 199. Sodi um 151, potassium 3.9, BUN 30, creatinine 1.45. BNP 1900. The patient's chest x-ray as stated in H PI. ASSESSMENT AND PLAN: This is a 61-year-old female who presents with: 1. End-stage renal disease, status post cadaveric renal transplant. The patient's baseline creatin ine is 1.5 to 1.7 mg/dL. The patient's renal function is currently at baseline. Will continue curr ent immunosuppressive regimen of cyclosporine, prednisone and CellCept. Will check a cyclosporine l evel. Would otherwise monitor closely. 2. Hypernatremia. The patient has a free water deficit of approximately 2 liters. Will give the p atient 1 liter of D5 water at 50 mL an hour. 3. Chronic allograft failure. The patient's renal function is currently at baseline as stated abov e. Continue current treatment plan. Will check urinalysis. Continue current immunosuppressive reg imen. 4. Congestive heart failure. Continue medical management. 5. Arrhythmia. Continue current medical management and follow up with cardiology. Will discuss [facility] Dr. Helm about current anti-arrhythmic medications. 6. Hypothyroidism. Continue current medical management. 7. Anemia. Monitor hemoglobin and hematocrit. 8. Mineral bone disorder. Monitor calcium and phosphorus levels. Thank you, , for this interesting consult. It will be a pleasure to follow the patient wit carie redmond throughout the hospital course. Dictated By: LINDSAY WITT/NTS Conf#: [id number] DID#: [id number] CC: SEAMUS MONTEIRO MD;*EndCC*
[2017-02-10] VITALS (44 sets, daily range): BP systolic 96–155; BP diastolic 67–100; PULSE 68–183; RESP 11–23; Ht 157.5 cm; Wt 50.0 kg
[2017-02-10 05:32] LABS: BASOPHILS % 0.1 % (0.0-2.0); EOSINOPHILS # 0.1 10^3/ul (0.0-0.5); EOSINOPHILS % 0.8 % (0.0-7.0); HEMATOCRIT 31.2 % (37.0-47.0); HEMOGLOBIN 9.6 g/dl (12.0-16.0); LYMPHOCYTES # 1.9 10^3/ul (0.8-2.9); MEAN CORPUSCULAR HEMOGLOBIN 25.3 pg (29.0-33.0); MEAN CORPUSCULAR HGB CONC 30.8 g/dl (32.0-37.0); MEAN CORPUSCULAR VOLUME 82.3 fl (82.0-101.0); MEAN PLATELET VOLUME 11.2 fl (7.4-10.4); MONOCYTE # 0.7 10^3/ul (0.3-0.9); MONOCYTES % 9.6 % (0.0-11.0); NEUTROPHIL # 4.5 10^3/ul (1.6-7.5); NEUTROPHILS % 62.2 % (39.0-77.0); PLATELET COUNT 180 10^3/UL (140-415); RED BLOOD COUNT 3.79 10^6/ul (4.20-5.40); RED CELL DISTRIBUTION WIDTH 14.5 % (11.5-14.5); WHITE BLOOD COUNT 7.2 10^3/ul (4.8-10.8)
[2017-02-10 06:05] LABS: MAGNESIUM 1.5 mg/dl (1.7-2.5); PHOSPHORUS 3.3 mg/dl (2.5-4.9)
[2017-02-10 06:10] LABS: ALBUMIN 3.2 g/dl (3.3-4.9); ALBUMIN/GLOBULIN RATIO 0.96; BILIRUBIN,INDIRECT 0.5 mg/dl (0-1.1); BILIRUBIN,TOTAL 0.5 mg/dl (0.2-1.3); CALCIUM 9.2 mg/dl (8.4-10.2); CREATININE 1.19 mg/dl (0.44-1.00); POTASSIUM 4.2 mmol/L (3.5-5.1); TOTAL PROTEIN 6.5 g/dl (6.1-8.1)
[2017-02-10] MEDS: FAMOTIDINE 20 MG TAB PO SCH ×2 (09:01→20:43)
[2017-02-10] MEDS: predniSONE 5 MG TAB PO SCH (09:01)
[2017-02-10] MEDS: DOCUSATE SODIUM 100 MG CAP PO SCH ×2 (09:01→20:43)
[2017-02-10] MEDS: APIXABAN 5 MG TABLET PO SCH ×2 (09:01→20:44)
[2017-02-10] MEDS: ALLOPURINOL 100 MG TAB PO SCH (09:01)
[2017-02-10] MEDS: DILTIAZEM (CD) 180 MG CAP PO SCH (09:01)
[2017-02-10] MEDS: CALCITRIOL 0.25 MCG CAP PO SCH (09:02)
[2017-02-10] MEDS: METOPROLOL (XL) 25 MG TAB PO SCH (09:03)
[2017-02-10] MEDS: FISH OIL 1,000 MG CAP PO SCH ×2 (09:03→20:43)
[2017-02-10] MEDS: CYCLOSPORINE MICROEMULS 100 MG CAP PO SCH ×2 (09:03→20:43)
[2017-02-10] MEDS: MYCOPHENOLATE 250 MG CAP PO SCH ×2 (09:03→20:42)
--- NOTE | 2017-02-10 09:47 | CONS ---
Date/Time of Note Date/Time of Note DATE: 02/10/17 TIME: 09:47 Consult Date/Type/Reason Admit Date/Time Feb 09, 2017 at 04:13 Initial Consult Date 02/09/17 Type of Consultation: card Ordering Provider: JOSH MILLER V. SENIOR FINANCIAL ACCOUNTANT Subjective card f/u S: d/w staff and rhythym was reviewed. pt has refused some of her meds including multaq yesterday. d/w Dr Caputo pt with Afib this am again no chest pain O: General: no acute distress HEENT: NC/AT. pupils are equal. round. NECK: NO JVD. no stridor. CV: Irregularly irregular. systolic murmur; no gallop or rubs. PULM: no wheezing or rhonchi. GI: SOFT, NT, ND, no rebound or guarding Extremity: trace B/L LE edema. no clubbing. neuro: awake and alert, OX3. Psych: calm and pleasant rectal: deferred : normal Objective Vital Signs Date Time Temp Pulse Resp B/P Pulse Ox O2 Delivery O2 Flow Rate FiO2 02/10/17 08:12 87 02/10/17 08:07 98.0 17 154/97 97 02/10/17 06:41 Room Air 02/09/17 07:29 2 Intake and Output 02/09/17 02/09/17 02/10/17 15:00 23:00 07:00 Intake Total 200 ml 250 ml Balance 200 ml 250 ml Results/Medications Result Diagram: 02/10/17 0442 02/10/17 0442 Results 24 hrs Laboratory Tests Test 02/09/17 10:07 02/09/17 14:41 02/10/17 04:42 Creatine Kinase 37 34 Creatine Kinase Index 3.8 3.5 Creatinine Kinase MB (Mass) 1.39 1.20 Troponin I 0.018 0.063 White Blood Count 7.2 # Red Blood Count 3.79 L Hemoglobin 9.6 L Hematocrit 31.2 L Mean Corpuscular Volume 82.3 Mean Corpuscular Hemoglobin 25.3 L Mean Corpuscular Hemoglobin Concent 30.8 L Red Cell Distribution Width 14.5 Platelet Count 180 Mean Platelet Volume 11.2 H Neutrophils % 62.2 Lymphocytes % 27.0 Monocytes % 9.6 Eosinophils % 0.8 Basophils % 0.1 Nucleated Red Blood Cells % 0.0 Neutrophils # 4.5 Lymphocytes # 1.9 Monocytes # 0.7 Eosinophils # 0.1 Basophils # 0.0 Nucleated Red Blood Cells # 0.0 Sodium Level 145 H Potassium Level 4.2 Chloride Level 114 H Carbon Dioxide Level 22 Anion Gap 13 # Blood Urea Nitrogen 21 H Creatinine 1.19 H Glucose Level 103 Calcium Level 9.2 Phosphorus Level 3.3 Magnesium Level 1.5 L Total Bilirubin 0.5 Direct Bilirubin 0.00 Indirect Bilirubin 0.5 Aspartate Amino Transf (AST/SGOT) 17 Alanine Aminotransferase (ALT/SGPT) 26 Alkaline Phosphatase 85 Total Protein 6.5 # Albumin 3.2 #L Globulin 3.30 H Albumin/Globulin Ratio 0.96 Medications Current Medications Apixaban (Eliquis) 2.5 mg BID PO Last administered on 02/10/17 09:01; Admin Dose 2.5 MG; Start 02/09/17 at 09:00 Mycophenolate Mofetil (Cellcept) 1,000 mg BID PO Last administered on 09:03; Admin Dose 1,000 MG; Start 02/09/17 at 09:00 Ondansetron HCl (Zofran Tab) 4 mg Q6H PRN PO NAUSEA AND/OR VOMITING; Start at 06:00 Nitroglycerin (Nitroglycerin (Sl Tab) 0.4 Mg) 1 tab Q5M PRN SL CHEST PAIN; Start 02/09/17 at 06:00 Cyclosporine (Neoral) 100 mg BID PO Last administered on 02/10/17 09:03; Admin Dose 100 MG; Start 02/09/17 at 09:00 Acetaminophen (Tylenol Tab) 325 mg Q6H PRN PO PAIN AND OR ELEVATED TEMP; Start 02/09/17 at 12:00 Allopurinol (Zyloprim) 100 mg DAILY PO Last administered on 02/10/17 09:01; Admin Dose 100 MG; Start 02/09/17 at 13:00 Atorvastatin Calcium (Lipitor) 40 mg QHS PO Last administered on 02/09/17 21: 26; Admin Dose 40 MG; Start 02/09/17 at 21:00 Calcitriol (Rocaltrol) 0.5 mcg DAILY PO Last administered on 02/10/17 09:02; Admin Dose 0.5 MCG; Start 02/09/17 at 13:00 Fish Oil (Fish Oil) 2,000 mg BID PO Last administered on 02/10/17 09:03; Admin Dose 2,000 MG; Start 02/09/17 at 21:00 Prednisone (Prednisone) 5 mg DAILY PO Last administered on 02/10/17 09:01; Admin Dose 5 MG; Start 02/09/17 at 13:00 Ondansetron HCl (Zofran Inj) 4 mg Q6H PRN IV NAUSEA AND/OR VOMITING; Start at 12:00 Acetaminophen/ Hydrocodone Bitart ([place] (5/325)) 1 tab Q6H PRN PO MODERATE PAIN LEVEL 4-6; Start 02/09/17 at 12:00 Docusate Sodium (Colace) 100 mg Q12 PO Last administered on 02/10/17 09:01; Admin Dose 100 MG; Start 02/09/17 at 12:00 Famotidine (Pepcid) 20 mg Q12 PO Last administered on 02/10/17 09:01; Admin Dose 20 MG; Start 02/09/17 at 21:00 Metoprolol Succinate (Toprol Xl) 50 mg BID PO ; Start 02/10/17 at 21:00; Status UNV Assessment/Plan Chief Complaint/Hosp Course 1. P AFIB 2. hx of renal transplant 3. HTN 4. CKD: stable now need to resume home meds including multaq. I will dc cardizem and inc toprol instead. cyclosporine level to be adjusted by her primary pack master. cont eliquis dc planning once ok with IM on toprol and multaq SHONDA MORENO MD [facility] Problems: SHONDA MORENO MD Feb 10, 2017 09:47
[2017-02-10] MEDS ORDERED: MAGNESIUM SULFATE 4 GM/100 ML 100 ML IVPB ONE (11:00)
[2017-02-10] MEDS ORDERED: MAGNESIUM SULFATE 2 GM/50 ML 50 ML IVPB ONE (11:30)
[2017-02-10] MEDS ORDERED: METOPROLOL 5 MG INJ IV ONE (12:56)
[2017-02-10] MEDS ORDERED: ADENOSINE 0 ML ONE (13:03)
--- NOTE | 2017-02-10 13:58 | PN ---
Date/Time of Note Date/Time of Note DATE: 02/10/17 TIME: 13:50 Assessment/Plan VTE Prophylaxis VTE Prophylaxis Intervention: other (Eliquis) Lines/Catheters Urinary Cath still in place: No Assessment/Plan Chief Complaint/Hosp Course 61-year-old female with a history of paroxysmal atrial fibrillation, CKD stage III, renal transplant, who presented to the emergency room with chest discomfort and palpitation and noted to have atrial fibrillation with RVR. 1. Paroxysmal atrial fibrillation with RVR. -Cardiology following and patient is now back on Multaq. -Patient refused Cardizem. She is on metoprolol. Continue Eliquis for anticoagulation. 2. Hypernatremia.Resolved -Monitor. 3.Essential hypertension. -Continue home medications. 4. Hypercholesterolemia. -On statin. 5.End-stage renal disease. status post cadaveric renal transplant in 1998 -on immunosuppression -Follow-up with nephrology recommendation on cyclosporine [id number] with cyclosporine blood level. 6.CKD stage III. Currently her renal function appears at baseline. -We will monitor renal function closely and follow-up with nephrology recommendations. Avoid nephrotoxins. 7. Gout. No flares. -Continue home medications. 8. Anemia of kidney disease. H&H stable. Will monitor. DVT prophylaxis: SCDs PUD prophylaxis: H2 blockers. Plan: Continue current medical management. Follow-up with cardiology and nephrology recommendations. Eventually, patient to follow-up with her transplant doctor as outpatient regarding cyclosporine dosage. As per cardiology, patient needs to continue Multaq upon discharge. Patient is seen in collaboration with . Approximately 60 minutes was spent on this history and physical. Problems: Subjective 24 Hr Interval Summary Free Text/Dictation Today patient with A. fib with rapid ventricular rate, SVT, heart rate in 180s. No chest pain. Patient was given IV Lopressor. She is now resumed on Multaq. Exam/Review of Systems Vital Signs Vitals Vital Signs Date Time Temp Pulse Resp B/P Pulse Ox O2 Delivery O2 Flow Rate FiO2 02/10/17 13:18 105 20 127/88 100 Nasal Cannula 02/10/17 11:36 97.9 02/09/17 07:29 2 Intake and Output 02/09/17 02/09/17 02/10/17 14:59 22:59 06:59 Intake Total 150 ml 300 ml Balance 150 ml 300 ml Exam General: Well developed,adequately built, not in any acute distress . HEENT: Normocephalic, Atraumatic, No laceration or hematoma; Eyes: PEERL, Conjunctiva clear, Anicteric sclera Neck: Supple without any lymphadenopathy, nontender, no JVD, no carotid bruits, trachea midline, no thyromegaly Cardiac: Irregular/faster rate and rhythm. no mumurs or gallop Pulmonary: Normal respiratory effort. Chest clear to auscultation bilaterally, no adventitious breath sounds GI: Abdomen normal to inspection. Soft, non tender, non- distended, no masses, no rebound tenderness or guarding. Bowel sounds active on all four quadrants Genitourinary: Deferred Extremities: No cyanosis, clubbing, or edema. Pulses [2+] bilaterally. Full ROM on all four extremities. No focal weakness appreciated. Neurologic: Alert to person, place, time, and situation. Affect appropriate, intact sensation. Skin: Clean,dry, and intact. No ecchymosis, no rashes, or lesions Results Result Diagram: 02/10/17 0442 02/10/17 0442 Results 24 hrs Laboratory Tests Test 02/09/17 14:41 02/10/17 04:42 Creatine Kinase 34 Creatine Kinase Index 3.5 Creatinine Kinase MB (Mass) 1.20 Troponin I 0.063 White Blood Count 7.2 # Red Blood Count 3.79 L Hemoglobin 9.6 L Hematocrit 31.2 L Mean Corpuscular Volume 82.3 Mean Corpuscular Hemoglobin 25.3 L Mean Corpuscular Hemoglobin Concent 30.8 L Red Cell Distribution Width 14.5 Platelet Count 180 Mean Platelet Volume 11.2 H Neutrophils % 62.2 Lymphocytes % 27.0 Monocytes % 9.6 Eosinophils % 0.8 Basophils % 0.1 Nucleated Red Blood Cells % 0.0 Neutrophils # 4.5 Lymphocytes # 1.9 Monocytes # 0.7 Eosinophils # 0.1 Basophils # 0.0 Nucleated Red Blood Cells # 0.0 Sodium Level 145 H Potassium Level 4.2 Chloride Level 114 H Carbon Dioxide Level 22 Anion Gap 13 # Blood Urea Nitrogen 21 H Creatinine 1.19 H Glucose Level 103 Calcium Level 9.2 Phosphorus Level 3.3 Magnesium Level 1.5 L Total Bilirubin 0.5 Direct Bilirubin 0.00 Indirect Bilirubin 0.5 Aspartate Amino Transf (AST/SGOT) 17 Alanine Aminotransferase (ALT/SGPT) 26 Alkaline Phosphatase 85 Total Protein 6.5 # Albumin 3.2 #L Globulin 3.30 H Albumin/Globulin Ratio 0.96 Medications Medications Current Medications Apixaban (Eliquis) 2.5 mg BID PO Last administered on 02/10/17 09:01; Admin Dose 2.5 MG; Start 02/09/17 at 09:00 Mycophenolate Mofetil (Cellcept) 1,000 mg BID PO Last administered on 09:03; Admin Dose 1,000 MG; Start 02/09/17 at 09:00 Ondansetron HCl (Zofran Tab) 4 mg Q6H PRN PO NAUSEA AND/OR VOMITING; Start at 06:00 Nitroglycerin (Nitroglycerin (Sl Tab) 0.4 Mg) 1 tab Q5M PRN SL CHEST PAIN Last administered on 02/10/17 12:48; Admin Dose 1 TAB; Start 02/09/17 at 06:00 Cyclosporine (Neoral) 100 mg BID PO Last administered on 02/10/17 09:03; Admin Dose 100 MG; Start 02/09/17 at 09:00 Acetaminophen (Tylenol Tab) 325 mg Q6H PRN PO PAIN AND OR ELEVATED TEMP; Start 02/09/17 at 12:00 Allopurinol (Zyloprim) 100 mg DAILY PO Last administered on 02/10/17 09:01; Admin Dose 100 MG; Start 02/09/17 at 13:00 Atorvastatin Calcium (Lipitor) 40 mg QHS PO Last administered on 02/09/17 21: 26; Admin Dose 40 MG; Start 02/09/17 at 21:00 Calcitriol (Rocaltrol) 0.5 mcg DAILY PO Last administered on 02/10/17 09:02; Admin Dose 0.5 MCG; Start 02/09/17 at 13:00 Fish Oil (Fish Oil) 2,000 mg BID PO Last administered on 02/10/17 09:03; Admin Dose 2,000 MG; Start 02/09/17 at 21:00 Prednisone (Prednisone) 5 mg DAILY PO Last administered on 02/10/17 09:01; Admin Dose 5 MG; Start 02/09/17 at 13:00 Ondansetron HCl (Zofran Inj) 4 mg Q6H PRN IV NAUSEA AND/OR VOMITING; Start at 12:00 Acetaminophen/ Hydrocodone Bitart ([place] (5/325)) 1 tab Q6H PRN PO MODERATE PAIN LEVEL 4-6; Start 02/09/17 at 12:00 Docusate Sodium (Colace) 100 mg Q12 PO Last administered on 02/10/17 09:01; Admin Dose 100 MG; Start 02/09/17 at 12:00 Famotidine (Pepcid) 20 mg Q12 PO Last administered on 02/10/17 09:01; Admin Dose 20 MG; Start 02/09/17 at 21:00 Metoprolol Succinate 50 mg 50 mg DAILY PO ; Start 02/11/17 at 09:00 Magnesium Sulfate (Magnesium Sulfate 4 Gm/100 ml) 100 ml @ 25 mls/hr ONCE ONCE IVPB Last administered on 02/10/17 11:26; Admin Dose 25 MLS/HR; Start 02/10/17 at 11:00; Stop 02/10/17 at 14:59 Metoprolol Tartrate (Lopressor) 2.5 mg Q1H PRN IV PALPITATION; Start 02/10/17 at 13:30 JOSH MILLER NP Feb 10, 2017 13:58
[2017-02-10] MEDS: METOPROLOL 5 MG INJ IV PRN (14:33)
[2017-02-10] MEDS ORDERED: DILTIAZEM-D5W 125MG/125ML DRIP 125 ML ONE (14:39)
[2017-02-10] MEDS ORDERED: DILTIAZEM-D5W 125MG/125ML DRIP 125 ML IV SCH (15:00)
--- NOTE | 2017-02-10 15:13 | RADRPT ---
Vent Rate: 89 bpm RR Interval: 0 msec MS Interval: 250 msec QRS Duration: 82 msec QT Interval: 372 msec QTC Interval: 452 msec P-R-T [place]: 50 - 37 - 56 degrees Sinus rhythm with 1st degree AV block ST abnormality, possible digitalis effect Abnormal ECG Electronically Signed By: Issac Chamberlain [id number]
--- NOTE | 2017-02-10 15:18 | RADRPT ---
Vent Rate: 107 bpm RR Interval: 0 msec NC Interval: 0 msec QRS Duration: 78 msec QT Interval: 308 msec QTC Interval: 411 msec P-R-T [place]: 0 - 26 - 0 degrees Sinus tachycardia with PACs ST amp; T wave abnormality, consider inferolateral ischemia or digitalis effect Abnormal ECG Electronically Signed By: Issac Chamberlain [id number]
[2017-02-10] MEDS: DRONEDARONE HYDROCHLORIDE 400 MG TAB PO SCH (18:01)
[2017-02-10] MEDS: ATORVASTATIN 40 MG TAB PO SCH (20:43)
[2017-02-11] VITALS (32 sets, daily range): BP systolic 91–113; BP diastolic 59–89; PULSE 63–89; RESP 13–31
[2017-02-11 06:41] LABS: BASOPHILS % 0.1 % (0.0-2.0); EOSINOPHILS # 0.1 10^3/ul (0.0-0.5); EOSINOPHILS % 1.2 % (0.0-7.0); HEMATOCRIT 32.8 % (37.0-47.0); HEMOGLOBIN 10.5 g/dl (12.0-16.0); LYMPHOCYTES # 1.9 10^3/ul (0.8-2.9); LYMPHOCYTES % 21.3 % (15.0-51.0); MEAN CORPUSCULAR HEMOGLOBIN 26.1 pg (29.0-33.0); MEAN CORPUSCULAR VOLUME 81.4 fl (82.0-101.0); MEAN PLATELET VOLUME 11.2 fl (7.4-10.4); MONOCYTES % 11.3 % (0.0-11.0); NEUTROPHILS % 65.9 % (39.0-77.0); PLATELET COUNT 194 10^3/UL (140-415); RED BLOOD COUNT 4.03 10^6/ul (4.20-5.40); RED CELL DISTRIBUTION WIDTH 14.6 % (11.5-14.5); WHITE BLOOD COUNT 9.1 10^3/ul (4.8-10.8)
[2017-02-11 07:08] LABS: BILIRUBIN,INDIRECT 0.5 mg/dl (0-1.1); BILIRUBIN,TOTAL 0.5 mg/dl (0.2-1.3); CALCIUM 9.3 mg/dl (8.4-10.2); CREATININE 1.51 mg/dl (0.44-1.00); POTASSIUM 4.3 mmol/L (3.5-5.1)
[2017-02-11 07:09] LABS: ALBUMIN 3.3 g/dl (3.3-4.9); TOTAL PROTEIN 6.6 g/dl (6.1-8.1)
[2017-02-11 07:14] LABS: MAGNESIUM 2.5 mg/dl (1.7-2.5); PHOSPHORUS 4.3 mg/dl (2.5-4.9)
--- NOTE | 2017-02-11 07:53 | PN ---
DATE: 02/10/2017 SUBJECTIVE: The patient is stable. No events overnight. OBJECTIVE: VITAL SIGNS: Blood pressure is 154/97, respirations 17, pulse 88, temperature 98.0. HEENT: Head is normocephalic. NECK: Supple. HEART: Regular rate. LUNGS: Show diminished breath sounds at base. ABDOMEN: Soft, nontender to palpation. No rebound or guarding. EXTREMITIES: Negative for clubbing, cyanosis, or edema. DERMATOLOGIC: No rashes. MUSCULOSKELETAL: No joint effusions. NEUROLOGIC: No change in exam. MEDICATIONS: The patient's medications have been reviewed. LABORATORY DATA: Sodium 145, potassium 4.2, chloride 114, BUN 21, creatinine 1.19, magnesium 1.5. White count 7.2, hemoglobin 9.6, hematocrit 31.2, platelet count is 180. ASSESSMENT AND PLAN: 1. End-stage renal disease status post cadaveric renal transplant. Patient's baseline creatinine o f 1.5. The patient's creatinine is currently below baseline. At this point, will continue current treatment plan on cyclosporine, prednisone and CellCept. Cyclosporine level is pending. Would brett tor closely. 2. Hypernatremia. The patient is currently receiving D5 water. Sodium levels have normalized. We will discontinue D5 water encouraged to increase free water intake. 3. Chronic allograft failure. The patient's renal function is currently at baseline stated above. Continue current treatment plan. 4. Congestive heart failure, improved. Continue medical management. 5. Sinus arrhythmia. Continue current medical management. Follow up with cardiology. 6. Hyperthyroidism. Continue Synthroid. 6. Anemia. We will hemoglobin and hematocrit levels. 7. Mineral bone disorder. Monitor calcium and phosphorus levels. 8. Diagnosis of hypomagnesium. We will replete with magnesium sulfate. Dictated By: LINDSAY JOSE DO NR/NTS Conf#: [id number] DID#: [id number] CC: LINDSAY JOSE DO;*EndCC*
[2017-02-11] MEDS: predniSONE 5 MG TAB PO SCH (08:23)
[2017-02-11] MEDS: DRONEDARONE HYDROCHLORIDE 400 MG TAB PO SCH ×2 (08:23→18:03)
[2017-02-11] MEDS: DOCUSATE SODIUM 100 MG CAP PO SCH ×2 (08:23→21:01)
[2017-02-11] MEDS: CYCLOSPORINE MICROEMULS 100 MG CAP PO SCH ×2 (08:23→21:00)
[2017-02-11] MEDS: CALCITRIOL 0.25 MCG CAP PO SCH (08:23)
[2017-02-11] MEDS: ALLOPURINOL 100 MG TAB PO SCH (08:23)
[2017-02-11] MEDS: FISH OIL 1,000 MG CAP PO SCH ×2 (08:24→21:03)
[2017-02-11] MEDS: MYCOPHENOLATE 250 MG CAP PO SCH ×2 (08:24→21:02)
[2017-02-11] MEDS: FAMOTIDINE 20 MG TAB PO SCH ×2 (08:24→21:03)
[2017-02-11] MEDS: APIXABAN 5 MG TABLET PO SCH ×2 (08:25→21:00)
--- NOTE | 2017-02-11 08:42 | PN ---
Date/Time of Note Date/Time of Note DATE: 02/11/17 TIME: 08:35 Assessment/Plan VTE Prophylaxis VTE Prophylaxis Intervention: other (eLIQUIS) Lines/Catheters [facility] Per[facility] IV Urinary Cath still in place: No Assessment/Plan Chief Complaint/Hosp Course 61-year-old female with a history of paroxysmal atrial fibrillation, CKD stage III, renal transplant, who presented to the emergency room with chest discomfort and palpitation and noted to have atrial fibrillation with RVR. 1. Paroxysmal atrial fibrillation with RVR. Non-sustained SVT episodes on . -Status post Cardizem gtt. Cardiology following and patient is now back on Multaq- Recommend periodic blood level as patient taking Cyclosporin which is a strong CY inhibitor. -On metoprolol. Continue Eliquis for anticoagulation. 2. Hypernatremia.Resolved -Monitor. 3.Essential hypertension. -Continue home medications. 4. Hypercholesterolemia. -On statin. 5.End-stage renal disease. status post cadaveric renal transplant in 1998 -on immunosuppression -Follow-up with nephrology recommendation 6. Gout. No flares. -Continue home medications. 7. Anemia of kidney disease. H&H stable. -Obtain iron panel as there is microcytic/hypochromic indices present. -Will monitor. DVT prophylaxis: SCDs PUD prophylaxis: H2 blockers. Plan: In ideal situation, combined use of Cyclosporine and Multaq is contraindicated. However, in this case, as per cardiology, benefit outweigh the risk and patient is recommended to continue Multaq. Up on discharge, we recommend periodic blood level for appropriate cyclosporine dosing. Continue current medical management. Follow-up with cardiology and nephrology recommendations on DC planning. Transfer to telemetry. Patient is seen in collaboration with . Problems: Subjective 24 Hr Interval Summary Free Text/Dictation Patient was moved to [facility] 2/2 SVT episodes requiring Cardizem gtt and titration. Cardizem gtt off since 4 am. No further episodes of SVT. Currently in Afib/ Aflutter with rate-controlled. Exam/Review of Systems Vital Signs Vitals Vital Signs Date Time Temp Pulse Resp B/P Pulse Ox O2 Delivery O2 Flow Rate FiO2 02/11/17 08:00 98.0 79 15 107/82 100 Nasal Cannula 2.0 02/11/17 04:36 27 Intake and Output 02/10/17 02/10/17 02/11/17 14:59 22:59 06:59 Intake Total 1155 ml 25 ml Output Total 1100 ml 300 ml Balance 55 ml -275 ml Exam General: Well developed,adequately built, not in any acute distress . HEENT: Normocephalic, Atraumatic, No laceration or hematoma; Eyes: PEERL, Conjunctiva clear, Anicteric sclera Neck: Supple without any lymphadenopathy, nontender, no JVD, no carotid bruits, trachea midline, no thyromegaly Cardiac: Irregular Rate and rhythm. no mumurs or gallop Pulmonary: Normal respiratory effort. Chest clear to auscultation bilaterally, no adventitious breath sounds GI: Abdomen normal to inspection. Soft, non tender, non- distended, no masses, no rebound tenderness or guarding. Bowel sounds active on all four quadrants Genitourinary: Deferred Extremities: No cyanosis, clubbing, or edema. Pulses [2+] bilaterally. Full ROM on all four extremities. No focal weakness appreciated. Neurologic: Alert to person, place, time, and situation. Affect appropriate, intact sensation. Skin: Clean,dry, and intact. No ecchymosis, no rashes, or lesions Results Result Diagram: 02/11/17 0538 02/11/17 0538 Results 24 hrs Laboratory Tests Test 02/11/17 05:38 White Blood Count 9.1 # Red Blood Count 4.03 L Hemoglobin 10.5 L Hematocrit 32.8 L Mean Corpuscular Volume 81.4 L Mean Corpuscular Hemoglobin 26.1 L Mean Corpuscular Hemoglobin Concent 32.0 Red Cell Distribution Width 14.6 H Platelet Count 194 Mean Platelet Volume 11.2 H Neutrophils % 65.9 Lymphocytes % 21.3 Monocytes % 11.3 H Eosinophils % 1.2 Basophils % 0.1 Nucleated Red Blood Cells % 0.0 Neutrophils # 6.0 Lymphocytes # 1.9 Monocytes # 1.0 H Eosinophils # 0.1 Basophils # 0.0 Nucleated Red Blood Cells # 0.0 Sodium Level 144 Potassium Level 4.3 Chloride Level 111 H Carbon Dioxide Level 22 Anion Gap 15 Blood Urea Nitrogen 27 H Creatinine 1.51 H Glucose Level 101 Calcium Level 9.3 Phosphorus Level 4.3 Magnesium Level 2.5 # Total Bilirubin 0.5 Direct Bilirubin 0.00 Indirect Bilirubin 0.5 Aspartate Amino Transf (AST/SGOT) 22 Alanine Aminotransferase (ALT/SGPT) 25 Alkaline Phosphatase 102 Total Protein 6.6 Albumin 3.3 Globulin 3.30 H Albumin/Globulin Ratio 1.00 Medications Medications Current Medications Apixaban (Eliquis) 2.5 mg BID PO Last administered on 02/11/17 08:25; Admin Dose 2.5 MG; Start 02/09/17 at 09:00 Mycophenolate Mofetil (Cellcept) 1,000 mg BID PO Last administered on 08:24; Admin Dose 1,000 MG; Start 02/09/17 at 09:00 Ondansetron HCl (Zofran Tab) 4 mg Q6H PRN PO NAUSEA AND/OR VOMITING; Start at 06:00 Nitroglycerin (Nitroglycerin (Sl Tab) 0.4 Mg) 1 tab Q5M PRN SL CHEST PAIN Last administered on 02/10/17 12:48; Admin Dose 1 TAB; Start 02/09/17 at 06:00 Cyclosporine (Neoral) 100 mg BID PO Last administered on 02/11/17 08:23; Admin Dose 100 MG; Start 02/09/17 at 09:00 Acetaminophen (Tylenol Tab) 325 mg Q6H PRN PO PAIN AND OR ELEVATED TEMP; Start 02/09/17 at 12:00 Allopurinol (Zyloprim) 100 mg DAILY PO Last administered on 02/11/17 08:23; Admin Dose 100 MG; Start 02/09/17 at 13:00 Atorvastatin Calcium (Lipitor) 40 mg QHS PO Last administered on 02/10/17 20: 43; Admin Dose 40 MG; Start 02/09/17 at 21:00 Calcitriol (Rocaltrol) 0.5 mcg DAILY PO Last administered on 02/11/17 08:23; Admin Dose 0.5 MCG; Start 02/09/17 at 13:00 Fish Oil (Fish Oil) 2,000 mg BID PO Last administered on 02/11/17 08:24; Admin Dose 2,000 MG; Start 02/09/17 at 21:00 Prednisone (Prednisone) 5 mg DAILY PO Last administered on 02/11/17 08:23; Admin Dose 5 MG; Start 02/09/17 at 13:00 Ondansetron HCl (Zofran Inj) 4 mg Q6H PRN IV NAUSEA AND/OR VOMITING; Start at 12:00 Acetaminophen/ Hydrocodone Bitart ([place] (5/325)) 1 tab Q6H PRN PO MODERATE PAIN LEVEL 4-6; Start 02/09/17 at 12:00 Docusate Sodium (Colace) 100 mg Q12 PO Last administered on 02/11/17 08:23; Admin Dose 100 MG; Start 02/09/17 at 12:00 Famotidine (Pepcid) 20 mg Q12 PO Last administered on 02/11/17 08:24; Admin Dose 20 MG; Start 02/09/17 at 21:00 Metoprolol Succinate (Toprol Xl) 50 mg DAILY PO Last administered on 02/11/17 08:25; Admin Dose 50 MG; Start 02/11/17 at 09:00 Metoprolol Tartrate 2.5 mg 2.5 mg Q1H PRN IV PALPITATION Last administered on 02/10/17 14:33; Admin Dose 2.5 MG; Start 02/10/17 at 13:30 Diltiazem HCl (Cardizem-D5W 125 Mg/125 ml Drip) 125 ml @ 10 mls/hr TITRATE IV Last administered on 02/10/17 14:47; Admin Dose 10 MLS/HR; Start 02/10/17 at 15:00 JOSH MILLER NP Feb 11, 2017 08:42 JOSH MILLER NP Feb 11, 2017 08:42 JOSH MILLER NP Feb 11, 2017 08:42
[2017-02-11] MEDS ORDERED: METOPROLOL (XL) 50 MG TAB PO SCH (09:00)
--- NOTE | 2017-02-11 09:55 | CONS ---
Date/Time of Note Date/Time of Note DATE: 02/11/17 TIME: 09:54 Consult Date/Type/Reason Admit Date/Time Feb 09, 2017 at 04:13 Initial Consult Date 02/09/17 Type of Consultation: card Ordering Provider: JOSH MILLER V. EXPORT DOCUMENTS CLERK Subjective card f/u S: d/w staff and rhythym was reviewed. pt has converted to Afib/flutter with RVR yesterday and transferred to ICU on cardizem drip. HR is better now and off of cardizem drip no chest pain now. O: General: no acute distress HEENT: NC/AT. pupils are equal. round. NECK: NO JVD. no stridor. CV: Irregularly irregular. systolic murmur; no gallop or rubs. PULM: no wheezing or rhonchi. GI: SOFT, NT, ND, no rebound or guarding Extremity: trace B/L LE edema. no clubbing. neuro: awake and alert, OX3. Psych: calm and pleasant rectal: deferred : normal Objective Vital Signs Date Time Temp Pulse Resp B/P Pulse Ox O2 Delivery O2 Flow Rate FiO2 02/11/17 09:00 89 17 102/79 100 Nasal Cannula 2.0 02/11/17 08:00 98.0 02/11/17 04:36 27 Intake and Output 02/10/17 02/10/17 02/11/17 15:00 23:00 07:00 Intake Total 1160 ml 20 ml Output Total 1100 ml 400 ml Balance 60 ml -380 ml Results/Medications Result Diagram: 02/11/17 0538 02/11/17 0538 Results 24 hrs Laboratory Tests Test 02/11/17 05:38 White Blood Count 9.1 # Red Blood Count 4.03 L Hemoglobin 10.5 L Hematocrit 32.8 L Mean Corpuscular Volume 81.4 L Mean Corpuscular Hemoglobin 26.1 L Mean Corpuscular Hemoglobin Concent 32.0 Red Cell Distribution Width 14.6 H Platelet Count 194 Mean Platelet Volume 11.2 H Neutrophils % 65.9 Lymphocytes % 21.3 Monocytes % 11.3 H Eosinophils % 1.2 Basophils % 0.1 Nucleated Red Blood Cells % 0.0 Neutrophils # 6.0 Lymphocytes # 1.9 Monocytes # 1.0 H Eosinophils # 0.1 Basophils # 0.0 Nucleated Red Blood Cells # 0.0 Sodium Level 144 Potassium Level 4.3 Chloride Level 111 H Carbon Dioxide Level 22 Anion Gap 15 Blood Urea Nitrogen 27 H Creatinine 1.51 H Glucose Level 101 Calcium Level 9.3 Phosphorus Level 4.3 Magnesium Level 2.5 # Total Bilirubin 0.5 Direct Bilirubin 0.00 Indirect Bilirubin 0.5 Aspartate Amino Transf (AST/SGOT) 22 Alanine Aminotransferase (ALT/SGPT) 25 Alkaline Phosphatase 102 Total Protein 6.6 Albumin 3.3 Globulin 3.30 H Albumin/Globulin Ratio 1.00 Medications Current Medications Apixaban (Eliquis) 2.5 mg BID PO Last administered on 02/11/17 08:25; Admin Dose 2.5 MG; Start 02/09/17 at 09:00 Mycophenolate Mofetil (Cellcept) 1,000 mg BID PO Last administered on 08:24; Admin Dose 1,000 MG; Start 02/09/17 at 09:00 Ondansetron HCl (Zofran Tab) 4 mg Q6H PRN PO NAUSEA AND/OR VOMITING; Start at 06:00 Nitroglycerin (Nitroglycerin (Sl Tab) 0.4 Mg) 1 tab Q5M PRN SL CHEST PAIN Last administered on 02/10/17 12:48; Admin Dose 1 TAB; Start 02/09/17 at 06:00 Cyclosporine (Neoral) 100 mg BID PO Last administered on 02/11/17 08:23; Admin Dose 100 MG; Start 02/09/17 at 09:00 Acetaminophen (Tylenol Tab) 325 mg Q6H PRN PO PAIN AND OR ELEVATED TEMP; Start 02/09/17 at 12:00 Allopurinol (Zyloprim) 100 mg DAILY PO Last administered on 02/11/17 08:23; Admin Dose 100 MG; Start 02/09/17 at 13:00 Atorvastatin Calcium (Lipitor) 40 mg QHS PO Last administered on 02/10/17 20: 43; Admin Dose 40 MG; Start 02/09/17 at 21:00 Calcitriol (Rocaltrol) 0.5 mcg DAILY PO Last administered on 02/11/17 08:23; Admin Dose 0.5 MCG; Start 02/09/17 at 13:00 Fish Oil (Fish Oil) 2,000 mg BID PO Last administered on 02/11/17 08:24; Admin Dose 2,000 MG; Start 02/09/17 at 21:00 Prednisone (Prednisone) 5 mg DAILY PO Last administered on 02/11/17 08:23; Admin Dose 5 MG; Start 02/09/17 at 13:00 Ondansetron HCl (Zofran Inj) 4 mg Q6H PRN IV NAUSEA AND/OR VOMITING; Start at 12:00 Acetaminophen/ Hydrocodone Bitart ([place] (5/325)) 1 tab Q6H PRN PO MODERATE PAIN LEVEL 4-6; Start 02/09/17 at 12:00 Docusate Sodium (Colace) 100 mg Q12 PO Last administered on 02/11/17 08:23; Admin Dose 100 MG; Start 02/09/17 at 12:00 Famotidine (Pepcid) 20 mg Q12 PO Last administered on 02/11/17 08:24; Admin Dose 20 MG; Start 02/09/17 at 21:00 Metoprolol Succinate (Toprol Xl) 50 mg DAILY PO Last administered on 02/11/17 08:25; Admin Dose 50 MG; Start 02/11/17 at 09:00 Metoprolol Tartrate (Lopressor) 2.5 mg Q1H PRN IV PALPITATION Last administered on 02/10/17 14:33; Admin Dose 2.5 MG; Start 02/10/17 at 13:30 Assessment/Plan Chief Complaint/Hosp Course 1. P AFIB/ flutter. 2. hx of renal transplant 3. HTN 4. CKD: stable now off of cardizem and inc toprol bid. cyclosporine level to be adjusted by her primary criminalist technician. cont pamela dc planning once ok with IM on toprol and kikeq SHONDA MORENO MD [facility] Problems: SHONDA MORENO MD Feb 11, 2017 09:55
[2017-02-11 09:58] LABS: TOTAL IRON BINDING CAPACITY 227 ug/dl (241-421)
[2017-02-11 10:04] LABS: IRON 58 ug/dl (35-150)
--- NOTE | 2017-02-11 10:46 | PN ---
DATE: 02/11/2017 SUBJECTIVE: The patient yesterday was in rapid AFib, was transferred to intensive care unit, placed on diltiazem drip. The patient has converted to sinus rhythm overnight, no other acute events note d. No hemoptysis, hematemesis or hematochezia. Please note, I did speak to the patient informing h er that she needs to take all her at high arrhythmic medications upon discharge and that her cyclosp orine levels can be adjusted accordingly. OBJECTIVE: VITAL SIGNS: Blood pressure is 91/70, respiration 31, pulse 87, temperature . HEENT: Head is normocephalic. NECK: Supple. HEART: Regular rate. LUNGS: Show diminished breath sounds at the base. ABDOMEN: Soft and nontender to palpation. No rebound or guarding. EXTREMITIES: Negative for clubbing, cyanosis, no edema. DERMATOLOGIC: No rashes. MUSCULOSKELETAL: No joint effusions. NEUROLOGIC: No change in exam. MEDICATIONS: The patient's medications have been reviewed. LABORATORY DATA: Showed sodium 144, potassium 4.3, chloride 111, BUN 27, creatinine 1.51. White co unt 9.1, hemoglobin 10.5, platelet count is 194. ASSESSMENT AND PLAN: 1. Endstage renal disease. The patient is status post cadaveric renal transplant with a baseline c reatinine of 1.5 mg/dL. The patient's renal function is currently at baseline. At this point I wou ld continue current treatment plan. Please note, I spoke with the patient and informed her that she should take all her antiarrhythmic medications and that her cyclosporine level will be appropriatel y adjusted to maintain her within therapeutic limits. The patient voiced understanding. We will th erefore continue current treatment plan with cyclosporine, prednisone and CellCept. We will check a cyclosporine level and monitor closely. Adjust as needed. 2. Hyponatremia secondary to insensible losses, improved. Continue to encourage free water intake. 3. Chronic allograft failure. The patient's renal function is currently at baseline. Continue cur rent medical management. 4. Congestive heart failure. Continue current treatment plan. 5. Atrial fibrillation with rapid rate. The patient is status post diltiazem drip, currently in si nus rhythm. Continue to monitor. Follow up with cardiology. 6. Hypothyroidism. Continue Synthroid. 7. Anemia. Monitor hemoglobin and hematocrit levels. 8. Mineral bone disorder. Monitor calcium and phosphorus levels. Dictated By: LINDSAY WITT/EDDIE Conf#: [id number] DID#: [id number] CC: SEAMUS MONTEIRO MD;*EndCC*
[2017-02-11] MEDS: ATORVASTATIN 40 MG TAB PO SCH (21:01)
[2017-02-11] MEDS: METOPROLOL (XL) 50 MG TAB PO SCH (21:03)
[2017-02-12] VITALS (12 sets, daily range): BP systolic 109–122; BP diastolic 71–83; PULSE 78–82; RESP 16–20
[2017-02-12 07:24] LABS: CALCIUM 9.2 mg/dl (8.4-10.2); CREATININE 2.1 mg/dl (0.44-1.00); MAGNESIUM 2.1 mg/dl (1.7-2.5); PHOSPHORUS 4.4 mg/dl (2.5-4.9); POTASSIUM 3.9 mmol/L (3.5-5.1)
[2017-02-12] MEDS: DRONEDARONE HYDROCHLORIDE 400 MG TAB PO SCH ×2 (08:00→17:34)
[2017-02-12] MEDS: CALCITRIOL 0.25 MCG CAP PO SCH (08:46)
[2017-02-12] MEDS: APIXABAN 5 MG TABLET PO SCH ×2 (08:47→21:19)
[2017-02-12] MEDS: ALLOPURINOL 100 MG TAB PO SCH (08:47)
[2017-02-12] MEDS: DOCUSATE SODIUM 100 MG CAP PO SCH ×2 (08:48→21:19)
[2017-02-12] MEDS: predniSONE 5 MG TAB PO SCH (08:48)
[2017-02-12] MEDS: FAMOTIDINE 20 MG TAB PO SCH ×2 (08:48→21:18)
[2017-02-12] MEDS: FISH OIL 1,000 MG CAP PO SCH ×2 (08:48→21:17)
[2017-02-12] MEDS: METOPROLOL (XL) 50 MG TAB PO SCH ×2 (08:49→21:18)
[2017-02-12] MEDS: MYCOPHENOLATE 250 MG CAP PO SCH ×2 (08:53→21:20)
[2017-02-12] MEDS: CYCLOSPORINE MICROEMULS 100 MG CAP PO SCH ×2 (09:50→21:17)
--- NOTE | 2017-02-12 11:05 | PN ---
Date/Time of Note Date/Time of Note DATE: 02/12/17 TIME: 11:01 Assessment/Plan VTE Prophylaxis VTE Prophylaxis Intervention: other Lines/Catheters IV [facility]ter [facility] (from [facility] [place] Urinary Cath still in place: No Assessment/Plan Problems: (1) Paroxysmal atrial fibrillation with rapid ventricular response Status: Chronic Comment: She is now in sinus rhythm although during the course of the hospitalization she is gone in and out. Her rhythm disturbance medications have been adjusted. Please note her anti-renal transplant rejection medication medications will need to be followed up and titrated based on the usage of the rhythm disturbance medications. This has already been mentioned in other notes as part of the plan (2) Diastolic dysfunction Status: Chronic Comment: Noted. The beta-blockade is appropriate in the setting and will cover this (3) Essential hypertension Status: Chronic Comment: Adequately controlled at the present time (4) Hyperlipidemia Status: Chronic Comment: Remains on appropriate dose statin therapy Qualifiers: Hyperlipidemia type: pure hypercholesterolemia Qualified Code: E78.00 - Pure hypercholesterolemia (5) Anemia in chronic kidney disease (CKD) Status: Chronic Comment: Stable. No indication for usage of stimulatory drugs Qualifiers: Chronic kidney disease stage: stage 2 (mild) Qualified Code: N18.2 - Anemia in stage 2 chronic kidney disease (6) Renal transplant recipient Onset Date: ~ 02/1999 Status: Chronic Comment: She has some modest allograft decrease in function over the 18 years since her transplant. Continue on antirejection medications as managed by her outpatient fiber heel piece shaper Subjective 24 Hr Interval Summary Free Text/Dictation Pleasant [place] female who reports she feels better today than she has the last 2 days Constitutional: no complaints (No fevers chills or sweats) Respiratory: no complaints (Reports her prior shortness of breath is resolved) Cardiovascular: no complaints (No further chest pain or palpitations) Gastrointestinal: no complaints (No further GI tract issues pain nausea or bloating) Musculoskeletal: no complaints Skin: no complaints Exam/Review of Systems Vital Signs Vitals Vital Signs Date Time Temp Pulse Resp B/P Pulse Ox O2 Delivery O2 Flow Rate FiO2 02/12/17 08:11 82 02/12/17 07:21 98.0 16 122/81 97 02/12/17 05:35 02/11/17 13:00 Nasal Cannula 02/11/17 04:36 27 Intake and Output 02/11/17 02/11/1702/12/17 14:59 22:59 06:59 Intake Total 240 ml 510 ml 480 ml Output Total 100 ml Balance 140 ml 510 ml 480 ml Exam Constitutional: alert, oriented Respiratory: clear to auscultation, normal air movement Cardiovascular: nl pulses, regular rate and rhythm Gastrointestinal: nl liver, spleen, non-tender, soft Results Result Diagram: 02/11/17 0538 02/12/17 0553 Results 24 hrs Laboratory Tests Test 02/12/17 05:53 Sodium Level 142 Potassium Level 3.9 Chloride Level 110 Carbon Dioxide Level 20 L Anion Gap 16 Blood Urea Nitrogen 37 H Creatinine 2.10 H Glucose Level 96 Calcium Level 9.2 Phosphorus Level 4.4 Magnesium Level 2.1 Medications Medications Current Medications Apixaban (Eliquis) 2.5 mg BID PO Last administered on 02/12/17 08:47; Admin Dose 2.5 MG; Start 02/09/17 at 09:00 Mycophenolate Mofetil (Cellcept) 1,000 mg BID PO Last administered on 08:53; Admin Dose 1,000 MG; Start 02/09/17 at 09:00 Ondansetron HCl (Zofran Tab) 4 mg Q6H PRN PO NAUSEA AND/OR VOMITING; Start at 06:00 Nitroglycerin (Nitroglycerin (Sl Tab) 0.4 Mg) 1 tab Q5M PRN SL CHEST PAIN Last administered on 02/10/17 12:48; Admin Dose 1 TAB; Start 02/09/17 at 06:00 Cyclosporine (Neoral) 100 mg BID PO Last administered on 02/12/17 09:50; Admin Dose 100 MG; Start 02/09/17 at 09:00 Acetaminophen (Tylenol Tab) 325 mg Q6H PRN PO PAIN AND OR ELEVATED TEMP; Start 02/09/17 at 12:00 Allopurinol (Zyloprim) 100 mg DAILY PO Last administered on 02/12/17 08:47; Admin Dose 100 MG; Start 02/09/17 at 13:00 Atorvastatin Calcium (Lipitor) 40 mg QHS PO Last administered on 02/11/17 21: 01; Admin Dose 40 MG; Start 02/09/17 at 21:00 Calcitriol (Rocaltrol) 0.5 mcg DAILY PO Last administered on 02/12/17 08:46; Admin Dose 0.5 MCG; Start 02/09/17 at 13:00 Fish Oil (Fish Oil) 2,000 mg BID PO Last administered on 02/12/17 08:48; Admin Dose 2,000 MG; Start 02/09/17 at 21:00 Prednisone (Prednisone) 5 mg DAILY PO Last administered on 02/12/17 08:48; Admin Dose 5 MG; Start 02/09/17 at 13:00 Ondansetron HCl (Zofran Inj) 4 mg Q6H PRN IV NAUSEA AND/OR VOMITING; Start at 12:00 Acetaminophen/ Hydrocodone Bitart ([place] (5/325)) 1 tab Q6H PRN PO MODERATE PAIN LEVEL 4-6; Start 02/09/17 at 12:00 Docusate Sodium (Colace) 100 mg Q12 PO Last administered on 02/12/17 08:48; Admin Dose 100 MG; Start 02/09/17 at 12:00 Famotidine (Pepcid) 20 mg Q12 PO Last administered on 02/12/17 08:48; Admin Dose 20 MG; Start 02/09/17 at 21:00 Metoprolol Tartrate (Lopressor) 2.5 mg Q1H PRN IV PALPITATION Last administered on 02/10/17 14:33; Admin Dose 2.5 MG; Start 02/10/17 at 13:30 Metoprolol Succinate (Toprol Xl) 50 mg BID PO Last administered on 02/12/17 08 :49; Admin Dose 50 MG; Start 02/11/17 at 21:00 OPHELIA DEVRIES MD Feb 12, 2017 11:05
--- NOTE | 2017-02-12 11:23 | CONS ---
Date/Time of Note Date/Time of Note DATE: 02/12/17 TIME: 11:20 Consult Date/Type/Reason Admit Date/Time Feb 09, 2017 at 04:13 Initial Consult Date 02/09/17 Type of Consultation: im neph Ordering Provider: JOSH MILLER V. [employer]ANT [employer] SUPERVISOR Subjective The patient back in sinus after a stint of rapid AFib, was transferred to intensive care unit, placed on diltiazem drip, now back in tele.. No hemoptysis, hematemesis or hematochezia. Please note, I did speak to the patient informing her that she needs to take all her anti arrhythmic medications upon discharge and that her cyclosporine levels can be adjusted accordingly. OBJECTIVE: HEENT: Head is normocephalic. NECK: Supple. HEART: Regular rate. LUNGS: Show diminished breath sounds at the base. ABDOMEN: Soft and nontender to palpation. No rebound or guarding. EXTREMITIES: Negative for clubbing, cyanosis, no edema. DERMATOLOGIC: No rashes. MUSCULOSKELETAL: No joint effusions. NEUROLOGIC: No change in exam. MEDICATIONS: The patient's medications have been reviewed. Objective Vital Signs Date Time Temp Pulse Resp B/P Pulse Ox O2 Delivery O2 Flow Rate FiO2 02/12/17 08:11 82 02/12/17 07:21 98.0 16 122/81 97 02/12/17 05:35 02/11/17 13:00 Nasal Cannula 02/11/17 04:36 27 Intake and Output 02/11/17 02/11/17 02/12/17 14:59 22:59 06:59 Intake Total 240 ml 510 ml 480 ml Output Total 100 ml Balance 140 ml 510 ml 480 ml Results/Medications Result Diagram: 02/11/17 0538 02/12/17 0553 Results 24 hrs Laboratory Tests Test 02/12/17 05:53 Sodium Level 142 Potassium Level 3.9 Chloride Level 110 Carbon Dioxide Level 20 L Anion Gap 16 Blood Urea Nitrogen 37 H Creatinine 2.10 H Glucose Level 96 Calcium Level 9.2 Phosphorus Level 4.4 Magnesium Level 2.1 Medications Current Medications Apixaban (Eliquis) 2.5 mg BID PO Last administered on 02/12/17t 08:47; Admin Dose 2.5 MG; Start 02/09/17 at 09:00 Mycophenolate Mofetil (Cellcept) 1,000 mg BID PO Last administered on 08:53; Admin Dose 1,000 MG; Start 02/09/17 at 09:00 Ondansetron HCl (Zofran Tab) 4 mg Q6H PRN PO NAUSEA AND/OR VOMITING; Start at 06:00 Nitroglycerin (Nitroglycerin (Sl Tab) 0.4 Mg) 1 tab Q5M PRN SL CHEST PAIN Last administered on 02/10/17 12:48; Admin Dose 1 TAB; Start 02/09/17 at 06:00 Cyclosporine (Neoral) 100 mg BID PO Last administered on 02/12/17 09:50; Admin Dose 100 MG; Start 02/09/17 at 09:00 Acetaminophen (Tylenol Tab) 325 mg Q6H PRN PO PAIN AND OR ELEVATED TEMP; Start 02/09/17 at 12:00 Allopurinol (Zyloprim) 100 mg DAILY PO Last administered on 02/12/17 08:47; Admin Dose 100 MG; Start 02/09/17 at 13:00 Atorvastatin Calcium (Lipitor) 40 mg QHS PO Last administered on 02/11/17 21: 01; Admin Dose 40 MG; Start 02/09/17 at 21:00 Calcitriol (Rocaltrol) 0.5 mcg DAILY PO Last administered on 02/12/17 08:46; Admin Dose 0.5 MCG; Start 02/09/17 at 13:00 Fish Oil (Fish Oil) 2,000 mg BID PO Last administered on 02/12/17 08:48; Admin Dose 2,000 MG; Start 02/09/17 at 21:00 Prednisone (Prednisone) 5 mg DAILY PO Last administered on 02/12/17 08:48; Admin Dose 5 MG; Start 02/09/17 at 13:00 Ondansetron HCl (Zofran Inj) 4 mg Q6H PRN IV NAUSEA AND/OR VOMITING; Start at 12:00 Acetaminophen/ Hydrocodone Bitart ([place] (5/325)) 1 tab Q6H PRN PO MODERATE PAIN LEVEL 4-6; Start 02/09/17 at 12:00 Docusate Sodium (Colace) 100 mg Q12 PO Last administered on 02/12/17 08:48; Admin Dose 100 MG; Start 02/09/17 at 12:00 Famotidine (Pepcid) 20 mg Q12 PO Last administered on 02/12/17 08:48; Admin Dose 20 MG; Start 02/09/17 at 21:00 Metoprolol Tartrate (Lopressor) 2.5 mg Q1H PRN IV PALPITATION Last administered on 02/10/17 14:33; Admin Dose 2.5 MG; Start 02/10/17 at 13:30 Metoprolol Succinate (Toprol Xl) 50 mg BID PO Last administered on 02/12/17 08 :49; Admin Dose 50 MG; Start 02/11/17 at 21:00 Assessment/Plan Chief Complaint/Hosp Course 1. Endstage renal disease. The patient is status post cadaveric renal transplant with a baseline creatinine of 1.5 mg/dL. The patient's renal function is currently worsened. likely related to vasomotor nephropathy from tachyarrhythmia. At this point I would continue current treatment plan. Please note, I spoke with the patient and informed her that she should take all her antiarrhythmic medications and that her cyclosporine level will be appropriately adjusted to maintain her within therapeutic limits. The patient voiced understanding. We will therefore continue current treatment plan with cyclosporine, prednisone and CellCept. We will check a cyclosporine level and monitor closely. Adjust as needed. If creatinine continues to trend up in am, may need transfer to tertiary care center with prompt cyclosporin level testing. 2. Hyponatremia secondary to insensible losses, improved. Continue to encourage free water intake. 3. Chronic allograft failure. The patient's renal function is currently at baseline. Continue current medical management. 4. Congestive heart failure. Continue current treatment plan. 5. Atrial fibrillation with rapid rate. The patient is status post diltiazem drip, currently in sinus rhythm. Continue to monitor. Follow up with cardiology. 6. Hypothyroidism. Continue Synthroid. 7. Anemia. Monitor hemoglobin and hematocrit levels. 8. Mineral bone disorder. Monitor calcium and phosphorus levels. Problems: MARCUS HERNDON MD Feb 12, 2017 11:23
--- NOTE | 2017-02-12 14:14 | CONS ---
Date/Time of Note Date/Time of Note DATE: 02/12/17 TIME: 14:12 Consult Date/Type/Reason Admit Date/Time Feb 09, 2017 at 04:13 Initial Consult Date 02/09/17 Type of Consultation: card Ordering Provider: JOSH MILLER V. CARDIOLOGY CLINICAL NURSE SPECIALIST Subjective card f/u S: d/w staff and rhythym was reviewed. pt remains in NSR now d/w no chest pain now. O: General: no acute distress HEENT: NC/AT. pupils are equal. round. NECK: NO JVD. no stridor. CV: RRR. systolic murmur; no gallop or rubs. PULM: no wheezing or rhonchi. GI: SOFT, NT, ND, no rebound or guarding Extremity: trace B/L LE edema. no clubbing. neuro: awake and alert, OX3. Psych: calm and pleasant rectal: deferred : normal Objective Vital Signs Date Time Temp Pulse Resp B/P Pulse Ox O2 Delivery O2 Flow Rate FiO2 02/12/17 12:05 80 02/12/17 11:22 97.8 16 109/72 99 02/12/17 05:35 02/11/17 13:00 Nasal Cannula 02/11/17 04:36 27 Intake and Output 02/11/17 02/11/17 02/12/17 14:59 22:59 06:59 Intake Total 240 ml 510 ml 480 ml Output Total 100 ml Balance 140 ml 510 ml 480 ml Results/Medications Result Diagram: 02/11/17 0538 02/12/17 0553 Results 24 hrs Laboratory Tests Test 02/12/17 05:53 Sodium Level 142 Potassium Level 3.9 Chloride Level 110 Carbon Dioxide Level 20 L Anion Gap 16 Blood Urea Nitrogen 37 H Creatinine 2.10 H Glucose Level 96 Calcium Level 9.2 Phosphorus Level 4.4 Magnesium Level 2.1 Medications Current Medications Apixaban (Eliquis) 2.5 mg BID PO Last administered on 02/12/17 08:47; Admin Dose 2.5 MG; Start 02/09/17 at 09:00 Mycophenolate Mofetil (Cellcept) 1,000 mg BID PO Last administered on 08:53; Admin Dose 1,000 MG; Start 02/09/17 at 09:00 Ondansetron HCl (Zofran Tab) 4 mg Q6H PRN PO NAUSEA AND/OR VOMITING; Start at 06:00 Nitroglycerin (Nitroglycerin (Sl Tab) 0.4 Mg) 1 tab Q5M PRN SL CHEST PAIN Last administered on 02/10/17 12:48; Admin Dose 1 TAB; Start 02/09/17 at 06:00 Cyclosporine (Neoral) 100 mg BID PO Last administered on 02/12/17 09:50; Admin Dose 100 MG; Start 02/09/17 at 09:00 Acetaminophen (Tylenol Tab) 325 mg Q6H PRN PO PAIN AND OR ELEVATED TEMP; Start 02/09/17 at 12:00 Allopurinol (Zyloprim) 100 mg DAILY PO Last administered on 02/12/17 08:47; Admin Dose 100 MG; Start 02/09/17 at 13:00 Atorvastatin Calcium (Lipitor) 40 mg QHS PO Last administered on 02/11/17 21: 01; Admin Dose 40 MG; Start 02/09/17 at 21:00 Calcitriol (Rocaltrol) 0.5 mcg DAILY PO Last administered on 02/12/17 08:46; Admin Dose 0.5 MCG; Start 02/09/17 at 13:00 Fish Oil (Fish Oil) 2,000 mg BID PO Last administered on 02/12/17 08:48; Admin Dose 2,000 MG; Start 02/09/17 at 21:00 Prednisone (Prednisone) 5 mg DAILY PO Last administered on 02/12/17 08:48; Admin Dose 5 MG; Start 02/09/17 at 13:00 Ondansetron HCl (Zofran Inj) 4 mg Q6H PRN IV NAUSEA AND/OR VOMITING; Start at 12:00 Acetaminophen/ Hydrocodone Bitart ([place] (5/325)) 1 tab Q6H PRN PO MODERATE PAIN LEVEL 4-6; Start 02/09/17 at 12:00 Docusate Sodium (Colace) 100 mg Q12 PO Last administered on 02/12/17 08:48; Admin Dose 100 MG; Start 02/09/17 at 12:00 Famotidine (Pepcid) 20 mg Q12 PO Last administered on 02/12/17 08:48; Admin Dose 20 MG; Start 02/09/17 at 21:00 Metoprolol Tartrate (Lopressor) 2.5 mg Q1H PRN IV PALPITATION Last administered on 02/10/17 14:33; Admin Dose 2.5 MG; Start 02/10/17 at 13:30 Metoprolol Succinate (Toprol Xl) 50 mg BID PO Last administered on 02/12/17 08 :49; Admin Dose 50 MG; Start 02/11/17 at 21:00 Assessment/Plan Chief Complaint/Hosp Course 1. P AFIB/ flutter. 2. hx of renal transplant 3. HTN 4. CKD: stable now off of cardizem and CONT toprol bid. CONT MULTAQ. cyclosporine level to be adjusted by her primary sewer. cont pamela MORENO MD FAC Problems: SHONDA MORENO MD Feb 12, 2017 14:14
[2017-02-12 16:08] LABS: ADD UMIC YES; UR ASCORBIC ACID NEGATIVE (NEGATIVE); UR BACTERIA FEW /HPF (NONE SEEN); UR BILIRUBIN (Dip) NEGATIVE (NEGATIVE); UR BLOOD (Dip) NEGATIVE (NEGATIVE); UR CLARITY CLEAR (CLEAR); UR COLOR STRAW (YELLOW); UR GLUCOSE (Dip) NEGATIVE (NEGATIVE); UR KETONES (Dip) NEGATIVE (NEGATIVE); UR LEUKOCYTE ESTERASE (Dip) TRACE Leu/ul (NEGATIVE); UR NITRITE (Dip) NEGATIVE (NEGATIVE); UR RBC 1 /HPF (0-5); UR SPECIFIC GRAVITY (Dip) 1.004 (1.003-1.030); UR TOTAL PROTEIN (Dip) NEGATIVE (NEGATIVE); UR UROBILINOGEN (Dip) NEGATIVE (NEGATIVE)
[2017-02-12] MEDS: ATORVASTATIN 40 MG TAB PO SCH (21:19)
[2017-02-13] VITALS (12 sets, daily range): BP systolic 109–128; BP diastolic 73–81; PULSE 79–90; RESP 17–20
[2017-02-13 06:07] LABS: HEMATOCRIT 30.3 % (37.0-47.0); HEMOGLOBIN 9.7 g/dl (12.0-16.0); MEAN CORPUSCULAR HEMOGLOBIN 25.9 pg (29.0-33.0); MEAN PLATELET VOLUME 11.7 fl (7.4-10.4); PLATELET COUNT 183 10^3/UL (140-415); RED BLOOD COUNT 3.74 10^6/ul (4.20-5.40); RED CELL DISTRIBUTION WIDTH 14.2 % (11.5-14.5); WHITE BLOOD COUNT 7.7 10^3/ul (4.8-10.8)
[2017-02-13] MEDS: ACETAMINOPHEN 325 MG TAB PO PRN ×3 (06:25→21:25)
[2017-02-13 06:41] LABS: ALBUMIN 3.3 g/dl (3.3-4.9); ALBUMIN/GLOBULIN RATIO 1.17; BILIRUBIN,INDIRECT 0.3 mg/dl (0-1.1); BILIRUBIN,TOTAL 0.3 mg/dl (0.2-1.3); CREATININE 2.17 mg/dl (0.44-1.00); POTASSIUM 4.2 mmol/L (3.5-5.1); TOTAL PROTEIN 6.1 g/dl (6.1-8.1)
[2017-02-13 07:04] LABS: MAGNESIUM 1.9 mg/dl (1.7-2.5); PHOSPHORUS 4.2 mg/dl (2.5-4.9)
[2017-02-13] MEDS: CYCLOSPORINE MICROEMULS 100 MG CAP PO SCH ×2 (08:00→21:16)
[2017-02-13] MEDS: FISH OIL 1,000 MG CAP PO SCH ×2 (08:01→21:16)
[2017-02-13] MEDS: predniSONE 5 MG TAB PO SCH (08:01)
[2017-02-13] MEDS: FAMOTIDINE 20 MG TAB PO SCH ×2 (08:01→21:18)
[2017-02-13] MEDS: CALCITRIOL 0.25 MCG CAP PO SCH (08:01)
[2017-02-13] MEDS: DRONEDARONE HYDROCHLORIDE 400 MG TAB PO SCH ×2 (08:01→17:33)
[2017-02-13] MEDS: DOCUSATE SODIUM 100 MG CAP PO SCH ×2 (08:01→21:17)
[2017-02-13] MEDS: ALLOPURINOL 100 MG TAB PO SCH (08:01)
[2017-02-13] MEDS: METOPROLOL (XL) 50 MG TAB PO SCH ×2 (08:01→21:17)
[2017-02-13] MEDS: MYCOPHENOLATE 250 MG CAP PO SCH ×2 (08:02→21:32)
[2017-02-13] MEDS: APIXABAN 5 MG TABLET PO SCH ×2 (08:02→21:17)
--- NOTE | 2017-02-13 08:47 | CONS ---
Date/Time of Note Date/Time of Note DATE: 02/13/17 TIME: 08:46 Consult Date/Type/Reason Admit Date/Time Feb 09, 2017 at 04:13 Initial Consult Date 02/09/17 Type of Consultation: neph Reason for Consultation The patient back in sinus after a stint of rapid AFib, was transferred to intensive care unit, placed on diltiazem drip, now back in tele. breathing comfortably on room air. No hemoptysis, hematemesis or hematochezia. Please note, I did speak to the patient informing her that she needs to take all her anti arrhythmic medications upon discharge and that her cyclosporine levels can be adjusted accordingly. OBJECTIVE: HEENT: Head is normocephalic. NECK: Supple. HEART: Regular rate. LUNGS: Show diminished breath sounds at the base. ABDOMEN: Soft and nontender to palpation. No rebound or guarding. EXTREMITIES: Negative for clubbing, cyanosis, no edema. DERMATOLOGIC: No rashes. MUSCULOSKELETAL: No joint effusions. NEUROLOGIC: No change in exam. MEDICATIONS: The patient's medications have been reviewed. Ordering Provider: JOSH MILLER NP Objective Vital Signs Date Time Temp Pulse Resp B/P Pulse Ox O2 Delivery O2 Flow Rate FiO2 02/13/17 08:00 99.2 86 20 128/81 100 02/12/17 05:35 02/11/17 13:00 Nasal Cannula 02/11/17 04:36 27 Intake and Output 02/12/17 02/12/17 02/13/17 15:00 23:00 07:00 Intake Total 1450 ml 650 ml Balance 1450 ml 650 ml Results/Medications Result Diagram: 02/13/17 0518 02/13/17 0518 Results 24 hrs Laboratory Tests Test 02/12/17 13:45 02/13/17 05:18 Urine Color STRAW Urine Clarity CLEAR Urine pH 5.0 Urine Specific [place] 1.004 Urine Ketones NEGATIVE Urine Nitrite NEGATIVE Urine Bilirubin NEGATIVE Urine Urobilinogen NEGATIVE Urine Leukocyte Esterase TRACE A Urine Microscopic RBC 1 Urine Microscopic WBC 3 Urine Bacteria FEW A Urine Hemoglobin NEGATIVE Urine Glucose NEGATIVE Urine Total Protein NEGATIVE White Blood Count 7.7 Red Blood Count 3.74 L Hemoglobin 9.7 L Hematocrit 30.3 L Mean Corpuscular Volume 81.0 L Mean Corpuscular Hemoglobin 25.9 L Mean Corpuscular Hemoglobin Concent 32.0 Red Cell Distribution Width 14.2 Platelet Count 183 Mean Platelet Volume 11.7 H Neutrophils % Lymphocytes % Monocytes % Eosinophils % Basophils % Nucleated Red Blood Cells % 0.0 Neutrophils # Lymphocytes # Monocytes # Eosinophils # Basophils # Nucleated Red Blood Cells # Sodium Level 142 Potassium Level 4.2 Chloride Level 111 H Carbon Dioxide Level 20 L Anion Gap 15 Blood Urea Nitrogen 40 H Creatinine 2.17 H Glucose Level 90 Calcium Level 9.0 Phosphorus Level 4.2 Magnesium Level 1.9 Total Bilirubin 0.3 Direct Bilirubin 0.00 Indirect Bilirubin 0.3 Aspartate Amino Transf (AST/SGOT) 14 L Alanine Aminotransferase (ALT/SGPT) 27 Alkaline Phosphatase 97 Total Protein 6.1 Albumin 3.3 Globulin 2.80 Albumin/Globulin Ratio 1.17 Medications Current Medications Apixaban (Eliquis) 2.5 mg BID PO Last administered on 02/13/17 08:02; Admin Dose 2.5 MG; Start 02/09/17 at 09:00 Mycophenolate Mofetil (Cellcept) 1,000 mg BID PO Last administered on 08:02; Admin Dose 1,000 MG; Start 02/09/17 at 09:00 Ondansetron HCl (Zofran Tab) 4 mg Q6H PRN PO NAUSEA AND/OR VOMITING; Start at 06:00 Nitroglycerin (Nitroglycerin (Sl Tab) 0.4 Mg) 1 tab Q5M PRN SL CHEST PAIN Last administered on 02/10/17 12:48; Admin Dose 1 TAB; Start 02/09/17 at 06:00 Cyclosporine (Neoral) 100 mg BID PO Last administered on 02/13/17 08:00; Admin Dose 100 MG; Start 02/09/17 at 09:00 Acetaminophen (Tylenol Tab) 325 mg Q6H PRN PO PAIN AND OR ELEVATED TEMP; Start 02/09/17 at 12:00 Allopurinol (Zyloprim) 100 mg DAILY PO Last administered on 02/13/17 08:01; Admin Dose 100 MG; Start 02/09/17 at 13:00 Atorvastatin Calcium (Lipitor) 40 mg QHS PO Last administered on 02/12/17 21: 19; Admin Dose 40 MG; Start 02/09/17 at 21:00 Calcitriol (Rocaltrol) 0.5 mcg DAILY PO Last administered on 02/13/17 08:01; Admin Dose 0.5 MCG; Start 02/09/17 at 13:00 Fish Oil (Fish Oil) 2,000 mg BID PO Last administered on 02/13/17 08:01; Admin Dose 2,000 MG; Start 02/09/17 at 21:00 Prednisone (Prednisone) 5 mg DAILY PO Last administered on 02/13/17 08:01; Admin Dose 5 MG; Start 02/09/17 at 13:00 Ondansetron HCl (Zofran Inj) 4 mg Q6H PRN IV NAUSEA AND/OR VOMITING; Start at 12:00 Acetaminophen/ Hydrocodone Bitart ([place] (5/325)) 1 tab Q6H PRN PO MODERATE PAIN LEVEL 4-6; Start 02/09/17 at 12:00 Docusate Sodium (Colace) 100 mg Q12 PO Last administered on 02/13/17 08:01; Admin Dose 100 MG; Start 02/09/17 at 12:00 Famotidine (Pepcid) 20 mg Q12 PO Last administered on 02/13/17 08:01; Admin Dose 20 MG; Start 02/09/17 at 21:00 Metoprolol Tartrate (Lopressor) 2.5 mg Q1H PRN IV PALPITATION Last administered on 02/10/17 14:33; Admin Dose 2.5 MG; Start 02/10/17 at 13:30 Metoprolol Succinate (Toprol Xl) 50 mg BID PO Last administered on 02/13/17 08 :01; Admin Dose 50 MG; Start 02/11/17 at 21:00 Assessment/Plan Chief Complaint/Hosp Course 1. Endstage renal disease. The patient is status post cadaveric renal transplant with a baseline creatinine of 1.5 mg/dL. The patient's renal function is currently worsened. likely related to vasomotor nephropathy from tachyarrhythmia. At this point I would continue current treatment plan. Please note, we spoke with the patient and informed her that she should take all her antiarrhythmic medications and that her cyclosporine level will be appropriately adjusted to maintain her within therapeutic limits. The patient voiced understanding. We will therefore continue current treatment plan with cyclosporine, prednisone and CellCept. We will check a cyclosporine level and monitor closely. Adjust as needed. If creatinine continues to trend up in am, may need transfer to tertiary care center with prompt cyclosporin level testing. 2. Hyponatremia secondary to insensible losses, improved. Continue to encourage free water intake. improved. 3. Chronic allograft failure. The patient's renal function is currently at baseline. Continue current medical management. 4. Congestive heart failure. Continue current treatment plan. 5. Atrial fibrillation with rapid rate. The patient is status post diltiazem drip, currently in sinus rhythm. Continue to monitor. Follow up with cardiology. 6. Hypothyroidism. Continue Synthroid. 7. Anemia. Monitor hemoglobin and hematocrit levels. 8. Mineral bone disorder. Monitor calcium and phosphorus levels. Problems: MARCUS HERNDON MD Feb 13, 2017 08:47
[2017-02-13 09:35] LABS: ANISOCYTOSIS 1+ (0-0); BURR CELLS 1+ (0-0); EOSINOPHILS % (M) 2 % (0-7); GIANT THROMBO% (M) 2 % (0-0); MICROCYTOSIS 1+ (0-0); MONOCYTES % (M) 7 % (0-11); OVALOCYTES 1+ (0-0); PLATELET ESTIMATE NORMAL; POIKILOCYTOSIS 1+ (0-0); POLYCHROMASIA 1+ (0-0)
[2017-02-13] MEDS ORDERED: COLCHICINE 0.6 MG TAB PO SCH (11:30)
--- NOTE | 2017-02-13 12:17 | PN ---
Date/Time of Note Date/Time of Note DATE: 02/13/17 TIME: 12:14 Assessment/Plan VTE Prophylaxis VTE Prophylaxis Intervention: other Lines/Catheters IV C[facility]ter Type ([facility] Peripheral IV Urinary Cath still in place: No Assessment/Plan Problems: (1) Acute kidney injury (nontraumatic) Status: Acute Comment: The patient has a history of some chronic kidney disease in the allograft. At this time given the study rise but also the rise in the BUN I suspect there is a prerenal component to this. Need to give her fluid bolus and see how she does will keep her overnight (2) Paroxysmal atrial fibrillation with rapid ventricular response Status: Chronic Comment: Controlled with medications (3) Renal transplant recipient Onset Date: ~ 02/1999 Status: Chronic Comment: Noted. As above need to observe. Nephrology is on the case (4) Essential hypertension Status: Chronic Comment: Adequate control (5) Hyperlipidemia Status: Chronic Comment: On statin therapy Qualifiers: Hyperlipidemia type: pure hypercholesterolemia Qualified Code: E78.00 - Pure hypercholesterolemia Subjective 24 Hr Interval Summary Free Text/Dictation Patient is complaining of a flare of gout in the right hand Constitutional: no complaints Respiratory: no complaints Cardiovascular: no complaints Gastrointestinal: no complaints Genitourinary: no complaints Musculoskeletal: other (Hand pain and swelling consistent with prior gout) Exam/Review of Systems Vital Signs Vitals Vital Signs Date Time Temp Pulse Resp B/P Pulse Ox O2 Delivery O2 Flow Rate FiO2 02/13/17 11:11 97.8 81 17 113/75 100 02/12/17 05:35 02/11/17 13:00 Nasal Cannula 02/11/17 04:36 27 Intake and Output 02/12/17 02/12/17 02/13/17 14:59 22:59 06:59 Intake Total 1450 ml 650 ml Balance 1450 ml 650 ml Exam Constitutional: alert, oriented Respiratory: clear to auscultation, normal air movement Cardiovascular: nl pulses, regular rate and rhythm Gastrointestinal: nl liver, spleen, non-tender, soft Extremities: other (Right hand tenderness at the wrist with swelling) Results Result Diagram: 02/13/1751702/13/1718 Results 24 hrs Laboratory Tests Test 02/12/17 13:45 02/13/17 05:18 Urine Color STRAW Urine Clarity CLEAR Urine pH 5.0 Urine Specific [place] 1.004 Urine Ketones NEGATIVE Urine Nitrite NEGATIVE Urine Bilirubin NEGATIVE Urine Urobilinogen NEGATIVE Urine Leukocyte Esterase TRACE A Urine Microscopic RBC 1 Urine Microscopic WBC 3 Urine Bacteria FEW A Urine Hemoglobin NEGATIVE Urine Glucose NEGATIVE Urine Total Protein NEGATIVE White Blood Count 7.7 Red Blood Count 3.74 L Hemoglobin 9.7 L Hematocrit 30.3 L Mean Corpuscular Volume 81.0 L Mean Corpuscular Hemoglobin 25.9 L Mean Corpuscular Hemoglobin Concent 32.0 Red Cell Distribution Width 14.2 Platelet Count 183 Mean Platelet Volume 11.7 H Neutrophils % Segmented Neutrophils % (Manual) 50 Lymphocytes % Lymphocytes % (Manual) 42 Monocytes % Monocytes % (Manual) 7 Eosinophils % Eosinophils % (Manual) 2 Basophils % Nucleated Red Blood Cells % 0.0 Neutrophils # Absolute Lymphocytes (Manual) 3.2 H Lymphocytes # Monocytes # Absolute Monocytes (Manual) 0.5 Eosinophils # Basophils # Nucleated Red Blood Cells # Platelet Estimate NORMAL Giant Platelets 2 H Polychromasia 1+ Poikilocytosis 1+ Anisocytosis 1+ Microcytosis 1+ Ovalocytes 1+ Sodium Level 142 Potassium Level 4.2 Chloride Level 111 H Carbon Dioxide Level 20 L Anion Gap 15 Blood Urea Nitrogen 40 H Creatinine 2.17 H Glucose Level 90 Calcium Level 9.0 Phosphorus Level 4.2 Magnesium Level 1.9 Total Bilirubin 0.3 Direct Bilirubin 0.00 Indirect Bilirubin 0.3 Aspartate Amino Transf (AST/SGOT) 14 L Alanine Aminotransferase (ALT/SGPT) 27 Alkaline Phosphatase 97 Total Protein 6.1 Albumin 3.3 Globulin 2.80 Albumin/Globulin Ratio 1.17 Medications Medications Current Medications Apixaban (Eliquis) 2.5 mg BID PO Last administered on 02/13/17 08:02; Admin Dose 2.5 MG; Start 02/09/17 at 09:00 Mycophenolate Mofetil (Cellcept) 1,000 mg BID PO Last administered on 08:02; Admin Dose 1,000 MG; Start 02/09/17 at 09:00 Ondansetron HCl (Zofran Tab) 4 mg Q6H PRN PO NAUSEA AND/OR VOMITING; Start at 06:00 Nitroglycerin (Nitroglycerin (Sl Tab) 0.4 Mg) 1 tab Q5M PRN SL CHEST PAIN Last administered on 02/10/17 12:48; Admin Dose 1 TAB; Start 02/09/17 at 06:00 Cyclosporine (Neoral) 100 mg BID PO Last administered on 02/13/17 08:00; Admin Dose 100 MG; Start 02/09/17 at 09:00 Acetaminophen (Tylenol Tab) 325 mg Q6H PRN PO PAIN AND OR ELEVATED TEMP; Start 02/09/17 at 12:00 Allopurinol (Zyloprim) 100 mg DAILY PO Last administered on 02/13/17 08:01; Admin Dose 100 MG; Start 02/09/17 at 13:00 Atorvastatin Calcium (Lipitor) 40 mg QHS PO Last administered on 02/12/17 21: 19; Admin Dose 40 MG; Start 02/09/17 at 21:00 Calcitriol (Rocaltrol) 0.5 mcg DAILY PO Last administered on 02/13/17 08:01; Admin Dose 0.5 MCG; Start 02/09/17 at 13:00 Fish Oil (Fish Oil) 2,000 mg BID PO Last administered on 02/13/17 08:01; Admin Dose 2,000 MG; Start 02/09/17 at 21:00 Prednisone (Prednisone) 5 mg DAILY PO Last administered on 02/13/17 08:01; Admin Dose 5 MG; Start 02/09/17 at 13:00 Ondansetron HCl (Zofran Inj) 4 mg Q6H PRN IV NAUSEA AND/OR VOMITING; Start at 12:00 Acetaminophen/ Hydrocodone Bitart ([place] (5/325)) 1 tab Q6H PRN PO MODERATE PAIN LEVEL 4-6; Start 02/09/17 at 12:00 Docusate Sodium (Colace) 100 mg Q12 PO Last administered on 02/13/17 08:01; Admin Dose 100 MG; Start 02/09/17 at 12:00 Famotidine (Pepcid) 20 mg Q12 PO Last administered on 02/13/17 08:01; Admin Dose 20 MG; Start 02/09/17 at 21:00 Metoprolol Tartrate (Lopressor) 2.5 mg Q1H PRN IV PALPITATION Last administered on 02/10/17 14:33; Admin Dose 2.5 MG; Start 02/10/17 at 13:30 Metoprolol Succinate (Toprol Xl) 50 mg BID PO Last administered on 02/13/17t 08 :01; Admin Dose 50 MG; Start 02/11/17 at 21:00 Colchicine 0.3 mg 0.3 mg ONCE PO ; Start 02/13/17 at 11:30; Stop 02/13/17 at 12: 30 Lactated Ringer's (Lr) 500 ml @ 500 mls/hr Q1H ONCE IV ; Start 02/13/17 at 12: 30; Stop 02/13/17 at 13:29 OPHELIA DEVRIES MD Feb 13, 2017 12:17
[2017-02-13] MEDS: LACTATED RINGER'S 500 ML IV ONE ×2 (12:39→17:33)
--- NOTE | 2017-02-13 13:38 | CONS ---
Date/Time of Note Date/Time of Note DATE: 02/13/17 TIME: 13:33 Consult Date/Type/Reason Admit Date/Time Feb 09, 2017 at 04:13 Initial Consult Date 02/09/17 Type of Consultation: card Ordering Provider: JOSH MILLER V. CHIEF SOLUTION ARCHITECT Subjective card f/u S: d/w staff and rhythym was reviewed. pt remains in NSR now no chest pain now. no palpitations c./o right hand "gouty pain" O: General: no acute distress HEENT: NC/AT. pupils are equal. round. NECK: NO JVD. no stridor. CV: RRR. systolic murmur; no gallop or rubs. PULM: no wheezing or rhonchi. GI: SOFT, NT, ND, no rebound or guarding Extremity: trace B/L LE edema. no clubbing. + edema/ right hand neuro: awake and alert, OX3. Psych: calm and pleasant rectal: deferred Objective Vital Signs Date Time Temp Pulse Resp B/P Pulse Ox O2 Delivery O2 Flow Rate FiO2 02/13/17 12:33 79 02/13/17 11:11 97.8 17 113/75 100 02/12/17 05:35 02/11/17 13:00 Nasal Cannula 02/11/17 04:36 27 Intake and Output 02/12/17 02/12/17 02/13/17 14:59 22:59 06:59 Intake Total 1450 ml 650 ml Balance 1450 ml 650 ml Results/Medications Result Diagram: 02/13/17 0518 02/13/17 0518 Results 24 hrs Laboratory Tests Test 02/12/17 13:45 02/13/17 05:18 Urine Color STRAW Urine Clarity CLEAR Urine pH 5.0 Urine Specific [place] 1.004 Urine Ketones NEGATIVE Urine Nitrite NEGATIVE Urine Bilirubin NEGATIVE Urine Urobilinogen NEGATIVE Urine Leukocyte Esterase TRACE A Urine Microscopic RBC 1 Urine Microscopic WBC 3 Urine Bacteria FEW A Urine Hemoglobin NEGATIVE Urine Glucose NEGATIVE Urine Total Protein NEGATIVE White Blood Count 7.7 Red Blood Count 3.74 L Hemoglobin 9.7 L Hematocrit 30.3 L Mean Corpuscular Volume 81.0 L Mean Corpuscular Hemoglobin 25.9 L Mean Corpuscular Hemoglobin Concent 32.0 Red Cell Distribution Width 14.2 Platelet Count 183 Mean Platelet Volume 11.7 H Neutrophils % Segmented Neutrophils % (Manual) 50 Lymphocytes % Lymphocytes % (Manual) 42 Monocytes % Monocytes % (Manual) 7 Eosinophils % Eosinophils % (Manual) 2 Basophils % Nucleated Red Blood Cells % 0.0 Neutrophils # Absolute Lymphocytes (Manual) 3.2 H Lymphocytes # Monocytes # Absolute Monocytes (Manual) 0.5 Eosinophils # Basophils # Nucleated Red Blood Cells # Platelet Estimate NORMAL Giant Platelets 2 H Polychromasia 1+ Poikilocytosis 1+ Anisocytosis 1+ Microcytosis 1+ Ovalocytes 1+ Sodium Level 142 Potassium Level 4.2 Chloride Level 111 H Carbon Dioxide Level 20 L Anion Gap 15 Blood Urea Nitrogen 40 H Creatinine 2.17 H Glucose Level 90 Calcium Level 9.0 Phosphorus Level 4.2 Magnesium Level 1.9 Total Bilirubin 0.3 Direct Bilirubin 0.00 Indirect Bilirubin 0.3 Aspartate Amino Transf (AST/SGOT) 14 L Alanine Aminotransferase (ALT/SGPT) 27 Alkaline Phosphatase 97 Total Protein 6.1 Albumin 3.3 Globulin 2.80 Albumin/Globulin Ratio 1.17 Medications Current Medications Apixaban (Eliquis) 2.5 mg BID PO Last administered on 02/13/17 08:02; Admin Dose 2.5 MG; Start 02/09/17 at 09:00 Mycophenolate Mofetil (Cellcept) 1,000 mg BID PO Last administered on 08:02; Admin Dose 1,000 MG; Start 02/09/17 at 09:00 Ondansetron HCl (Zofran Tab) 4 mg Q6H PRN PO NAUSEA AND/OR VOMITING; Start at 06:00 Nitroglycerin (Nitroglycerin (Sl Tab) 0.4 Mg) 1 tab Q5M PRN SL CHEST PAIN Last administered on 02/10/17 12:48; Admin Dose 1 TAB; Start 02/09/17 at 06:00 Cyclosporine (Neoral) 100 mg BID PO Last administered on 02/13/17 08:00; Admin Dose 100 MG; Start 02/09/17 at 09:00 Acetaminophen (Tylenol Tab) 325 mg Q6H PRN PO PAIN AND OR ELEVATED TEMP Last administered on 02/13/17 12:14; Admin Dose 325 MG; Start 02/09/17 at 12:00 Allopurinol (Zyloprim) 100 mg DAILY PO Last administered on 02/13/17 08:01; Admin Dose 100 MG; Start 02/09/17 at 13:00 Atorvastatin Calcium (Lipitor) 40 mg QHS PO Last administered on 02/12/17 21: 19; Admin Dose 40 MG; Start 02/09/17 at 21:00 Calcitriol (Rocaltrol) 0.5 mcg DAILY PO Last administered on 02/13/17 08:01; Admin Dose 0.5 MCG; Start 02/09/17 at 13:00 Fish Oil (Fish Oil) 2,000 mg BID PO Last administered on 02/13/17 08:01; Admin Dose 2,000 MG; Start 02/09/17 at 21:00 Prednisone (Prednisone) 5 mg DAILY PO Last administered on 02/13/17 08:; Admin Dose 5 MG; Start 02/09/17 at 13:00 Ondansetron HCl (Zofran Inj) 4 mg Q6H PRN IV NAUSEA AND/OR VOMITING; Start at 12:00 Acetaminophen/ Hydrocodone Bitart ([place] (5/325)) 1 tab Q6H PRN PO MODERATE PAIN LEVEL 4-6; Start 02/09/17 at 12:00 Docusate Sodium (Colace) 100 mg Q12 PO Last administered on 02/13/17 08:01; Admin Dose 100 MG; Start 02/09/17 at 12:00 Famotidine (Pepcid) 20 mg Q12 PO Last administered on 02/13/17 08:01; Admin Dose 20 MG; Start 02/09/17 at 21:00 Metoprolol Tartrate (Lopressor) 2.5 mg Q1H PRN IV PALPITATION Last administered on 02/10/17 14:33; Admin Dose 2.5 MG; Start 02/10/17 at 13:30 Metoprolol Succinate (Toprol Xl) 50 mg BID PO Last administered on 02/13/17 08 :01; Admin Dose 50 MG; Start 02/11/17 at 21:00 Assessment/Plan Chief Complaint/Hosp Course 1. P AFIB/ flutter. 2. hx of renal transplant 3. HTN 4. CKD: stable now 5. ? gout: will defer to IM CONT toprol bid. CONT MULTAQ. cyclosporine level to be adjusted by her primary reagent tender. cont eliquis renal eval and treatment as per IM/ renal SHONDA VAHDAT MD [facility] Problems: SHONDA MORENO MD Feb 13, 2017 13:38
[2017-02-13 13:56] LABS: CYCLOSPORIN <25 mcg/L
[2017-02-13] MEDS: ATORVASTATIN 40 MG TAB PO SCH (21:18)
[2017-02-14] VITALS (15 sets, daily range): BP systolic 111–125; BP diastolic 71–84; PULSE 65–174; RESP 20
[2017-02-14 06:29] LABS: BASOPHILS % 0.1 % (0.0-2.0); EOSINOPHILS % 0.4 % (0.0-7.0); HEMATOCRIT 29.5 % (37.0-47.0); HEMOGLOBIN 9.4 g/dl (12.0-16.0); LYMPHOCYTES % 25.1 % (15.0-51.0); MEAN CORPUSCULAR HEMOGLOBIN 25.4 pg (29.0-33.0); MEAN CORPUSCULAR HGB CONC 31.9 g/dl (32.0-37.0); MEAN CORPUSCULAR VOLUME 79.7 fl (82.0-101.0); MEAN PLATELET VOLUME 11.6 fl (7.4-10.4); MONOCYTE # 1.4 10^3/ul (0.3-0.9); MONOCYTES % 17.1 % (0.0-11.0); NEUTROPHIL # 4.6 10^3/ul (1.6-7.5); PLATELET COUNT 175 10^3/UL (140-415); RED CELL DISTRIBUTION WIDTH 14.1 % (11.5-14.5)
[2017-02-14] MEDS: ACETAMINOPHEN 325 MG TAB PO PRN ×2 (06:45→21:42)
[2017-02-14 07:00] LABS: ALBUMIN 3.2 g/dl (3.3-4.9); ALBUMIN/GLOBULIN RATIO 1.03; BILIRUBIN,INDIRECT 0.3 mg/dl (0-1.1); BILIRUBIN,TOTAL 0.3 mg/dl (0.2-1.3); CALCIUM 9.1 mg/dl (8.4-10.2); CREATININE 2.05 mg/dl (0.44-1.00); MAGNESIUM 1.8 mg/dl (1.7-2.5); POTASSIUM 4.2 mmol/L (3.5-5.1); TOTAL PROTEIN 6.3 g/dl (6.1-8.1)
[2017-02-14] MEDS: FISH OIL 1,000 MG CAP PO SCH ×2 (08:01→21:43)
[2017-02-14] MEDS: CYCLOSPORINE MICROEMULS 100 MG CAP PO SCH ×2 (08:01→21:42)
[2017-02-14] MEDS: FAMOTIDINE 20 MG TAB PO SCH ×2 (08:01→21:42)
[2017-02-14] MEDS: MYCOPHENOLATE 250 MG CAP PO SCH ×2 (08:01→21:44)
[2017-02-14] MEDS: CALCITRIOL 0.25 MCG CAP PO SCH (08:01)
[2017-02-14] MEDS: DOCUSATE SODIUM 100 MG CAP PO SCH ×2 (08:02→21:00)
[2017-02-14] MEDS: METOPROLOL (XL) 50 MG TAB PO SCH ×2 (08:02→21:51)
[2017-02-14] MEDS: ALLOPURINOL 100 MG TAB PO SCH (08:02)
[2017-02-14] MEDS: APIXABAN 5 MG TABLET PO SCH ×2 (08:02→21:42)
[2017-02-14] MEDS: predniSONE 5 MG TAB PO SCH (08:02)
[2017-02-14] MEDS: DRONEDARONE HYDROCHLORIDE 400 MG TAB PO SCH ×2 (08:04→17:17)
--- NOTE | 2017-02-14 11:30 | PN ---
Date/Time of Note Date/Time of Note DATE: 02/14/17 TIME: 11:24 Assessment/Plan VTE Prophylaxis VTE Prophylaxis Intervention: other (eLIQUIS) Lines/Catheters IV Catheter Type (from [facility]): Peripheral IV Urinary Cath still in place: No Assessment/Plan Chief Complaint/Hosp Course 61-year-old female with a history of paroxysmal atrial fibrillation, CKD stage III, renal transplant, who presented to the emergency room with chest discomfort and palpitation and noted to have atrial fibrillation with RVR. 1. Paroxysmal atrial fibrillation with RVR. Non-sustained SVT episodes on . Currently in sinus rhythm. Status: Acute on chronic. Status post Cardizem gtt. Cardiology following and patient is now back on Multaq - Recommend periodic blood level as patient taking Cyclosporin which is a strong CY inhibitor-current level within therapeutic range. -Continue Multaq/metoprolol/Eliquis. 2. ESBL UTI per urine culture. Status: Acute. - At this time, there is possibility that it can be contamination as patient is asymptomatic. Even though, due to CSF count greater than 100,000 ESBL, we are going to treat patient with meropenem. We are also going to proceed with repeating the urine culture and determine whether patient needs any further antibiotic continuation or not. 3.Essential hypertension. Status: Chronic -Continue home medications. 4. Hypercholesterolemia. Status: Chronic -On statin. 5.End-stage renal disease. status post cadaveric renal transplant in 1998 Status: Chronic -on immunosuppression -Follow-up with nephrology recommendation 6. Gout. No flares. Status: Chronic -Continue home medications. 7. Anemia of kidney disease. H&H stable. Status: Chronic -Obtain iron panel as there is microcytic/hypochromic indices present. -Will monitor. DVT prophylaxis: SCDs PUD prophylaxis: H2 blockers. Plan: Repeat urine culture. Estimated discharge planning in next 24-48 hours. Patient is seen in collaboration with . Problems: Subjective 24 Hr Interval Summary Free Text/Dictation Heart rate has been controlled over the past 2 days. Patient also had a positive urine culture. She denies any symptoms at this time. Exam/Review of Systems Vital Signs Vitals Vital Signs Date Time Temp Pulse Resp B/P Pulse Ox O2 Delivery O2 Flow Rate FiO2 02/14/17 11:11 98.0 84 20 121/73 98 02/12/17 05:35 02/11/17 13:00 Nasal Cannula 02/11/17 04:36 27 Intake and Output 02/13/17 02/13/17 02/14/17 15:00 23:00 07:00 Intake Total 940 ml Balance 940 ml Exam General: Well developed,adequately built, not in any acute distress . HEENT: Normocephalic, Atraumatic, No laceration or hematoma; Eyes: PEERL, Conjunctiva clear, Anicteric sclera Neck: Supple without any lymphadenopathy, nontender, no JVD, no carotid bruits, trachea midline, no thyromegaly Cardiac: Irregular rate and rhythm. no mumurs or gallop Pulmonary: Normal respiratory effort. Chest clear to auscultation bilaterally, no adventitious breath sounds GI: Abdomen normal to inspection. Soft, non tender, non- distended, no masses, no rebound tenderness or guarding. Bowel sounds active on all four quadrants Genitourinary: Deferred Extremities: No cyanosis, clubbing, or edema. Pulses [2+] bilaterally. Full ROM on all four extremities. No focal weakness appreciated. Neurologic: Alert to person, place, time, and situation. Affect appropriate, intact sensation. Skin: Clean,dry, and intact. No ecchymosis, no rashes, or lesions Results Result Diagram: 02/14/17 0552 02/14/17 0552 Results 24 hrs Laboratory Tests Test 02/14/17 05:52 02/14/17 05:53 White Blood Count 8.0 Red Blood Count 3.70 L Hemoglobin 9.4 L Hematocrit 29.5 L Mean Corpuscular Volume 79.7 L Mean Corpuscular Hemoglobin 25.4 L Mean Corpuscular Hemoglobin Concent 31.9 L Red Cell Distribution Width 14.1 Platelet Count 175 Mean Platelet Volume 11.6 H Neutrophils % 57.0 Lymphocytes % 25.1 Monocytes % 17.1 H Eosinophils % 0.4 Basophils % 0.1 Nucleated Red Blood Cells % 0.0 Neutrophils # 4.6 Lymphocytes # 2.0 Monocytes # 1.4 H Eosinophils # 0.0 Basophils # 0.0 Nucleated Red Blood Cells # 0.0 Sodium Level 144 Potassium Level 4.2 Chloride Level 113 H Carbon Dioxide Level 20 L Anion Gap 15 Blood Urea Nitrogen 36 H Creatinine 2.05 H Glucose Level 101 Calcium Level 9.1 Phosphorus Level 4.0 Magnesium Level 1.8 Total Bilirubin 0.3 Direct Bilirubin 0.00 Indirect Bilirubin 0.3 Aspartate Amino Transf (AST/SGOT) 14 L Alanine Aminotransferase (ALT/SGPT) 26 Alkaline Phosphatase 99 Total Protein 6.3 Albumin 3.2 L Globulin 3.10 Albumin/Globulin Ratio 1.03 Uric Acid 8.4 H Medications Medications Current Medications Apixaban (Eliquis) 2.5 mg BID PO Last administered on 02/14/17 08:02; Admin Dose 2.5 MG; Start 02/09/17 at 09:00 Mycophenolate Mofetil (Cellcept) 1,000 mg BID PO Last administered on 08:01; Admin Dose 1,000 MG; Start 02/09/17 at 09:00 Ondansetron HCl (Zofran Tab) 4 mg Q6H PRN PO NAUSEA AND/OR VOMITING; Start at 06:00 Nitroglycerin (Nitroglycerin (Sl Tab) 0.4 Mg) 1 tab Q5M PRN SL CHEST PAIN Last administered on 02/10/17 12:48; Admin Dose 1 TAB; Start 02/09/17 at 06:00 Cyclosporine (Neoral) 100 mg BID PO Last administered on 02/14/17 08:01; Admin Dose 100 MG; Start 02/09/17 at 09:00 Acetaminophen (Tylenol Tab) 325 mg Q6H PRN PO PAIN AND OR ELEVATED TEMP Last administered on 02/13/17 06:25; Admin Dose 325 MG; Start 02/09/17 at 12:00 Allopurinol (Zyloprim) 100 mg DAILY PO Last administered on 02/14/17 08:02; Admin Dose 100 MG; Start 02/09/17 at 13:00 Atorvastatin Calcium (Lipitor) 40 mg QHS PO Last administered on 02/13/17 21: 18; Admin Dose 40 MG; Start 02/09/17 at 21:00 Calcitriol (Rocaltrol) 0.5 mcg DAILY PO Last administered on 02/14/17 08:01; Admin Dose 0.5 MCG; Start 02/09/17 at 13:00 Fish Oil (Fish Oil) 2,000 mg BID PO Last administered on 02/14/17 08:01; Admin Dose 2,000 MG; Start 02/09/17 at 21:00 Prednisone (Prednisone) 5 mg DAILY PO Last administered on 02/14/17 08:02; Admin Dose 5 MG; Start 02/09/17 at 13:00 Ondansetron HCl (Zofran Inj) 4 mg Q6H PRN IV NAUSEA AND/OR VOMITING; Start at 12:00 Acetaminophen/ Hydrocodone Bitart ([place] (5/325)) 1 tab Q6H PRN PO MODERATE PAIN LEVEL 4-6 Last administered on 02/14/17 08:00; Admin Dose 1 TAB; Start at 12:00 Docusate Sodium (Colace) 100 mg Q12 PO Last administered on 02/14/17 08:02; Admin Dose 100 MG; Start 02/09/17 at 12:00 Famotidine (Pepcid) 20 mg Q12 PO Last administered on 02/14/17 08:01; Admin Dose 20 MG; Start 02/09/17 at 21:00 Metoprolol Tartrate (Lopressor) 2.5 mg Q1H PRN IV PALPITATION Last administered on 02/10/17 14:33; Admin Dose 2.5 MG; Start 02/10/17 at 13:30 Metoprolol Succinate 50 mg 50 mg BID PO Last administered on 02/14/17 08:02; Admin Dose 50 MG; Start 02/11/17 at 21:00 Meropenem/Sodium Chloride (Merrem 500mg/50 ml(Pmx)) 50 ml @ 100 mls/hr Q12 IVPB ; Start 02/14/17 at 12:00 JOSH MILLER NP Feb 14, 2017 11:30
[2017-02-14] MEDS: MEROPENEM 500MG/50 ML (PMX) 50 ML IVPB SCH ×2 (12:45→21:41)
--- NOTE | 2017-02-14 13:18 | RADRPT ---
Vent Rate: 98 bpm RR Interval: 0 msec CA Interval: 0 msec QRS Duration: 78 msec QT Interval: 318 msec QTC Interval: 405 msec P-R-T [place]: 0 - 26 - 66 degrees Sinus rhythm Electronically Signed By: Issac Chamberlain [id number]
--- NOTE | 2017-02-14 13:26 | RADRPT ---
Vent Rate: 86 bpm RR Interval: 0 msec CO Interval: 276 msec QRS Duration: 82 msec QT Interval: 382 msec QTC Interval: 457 msec P-R-T [place]: 93 - 33 - 57 degrees Sinus rhythm with 1st degree AV block Otherwise normal ECG Electronically Signed By: Issac Chamberlain [id number]
--- NOTE | 2017-02-14 17:14 | PN ---
DATE: 02/14/2017 SUBJECTIVE: The patient is stable, no fevers, chills, nausea, vomiting. OBJECTIVE: VITAL SIGNS: Blood pressure is 112/72, pulse 84, respirations 20, temperature 98.5. HEENT: Head is normocephalic. NECK: Supple. HEART: Regular rate. LUNGS: Show diminished breath sounds at the base. ABDOMEN: Soft, nontender to palpation. No rebound or guarding. EXTREMITIES: Negative for clubbing, cyanosis, no edema. DERMATOLOGIC: No rashes. MUSCULOSKELETAL: No joint effusions. NEUROLOGIC: No change in exam. MEDICATIONS: The patient's medications have been reviewed. LABORATORY DATA: Shows sodium 144, potassium 4.2, chloride 113, BUN 36, creatinine 2.05. White cou nt 8.0, hemoglobin 9.4, hematocrit 29.5, platelet count is 175. ASSESSMENT AND PLAN: 1. 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 The patient has a baseline creatinine of 1.5 mg/dL. Etiology of current acute kidney injury is likely due to tachyarrhythmia. The patient's creatinine appears to have stabilized around 2.0 mg/dL. At this point, would contin ue current treatment plan. Continue current immunosuppressive regimen cyclosporine, prednisone and CellCept. Cyclosporine level was checked and was low. Will repeat another level. Would otherwise continue to monitor closely. 2. End-stage renal disease status post cadaveric renal transplant with previous baseline creatinine of 1.5 mg/dL. The patient is currently in acute kidney injury as stated above, will continue curre nt treatment plan and monitor. 3. Hypernatremia, resolved. 4. Congestive heart failure. Continue current treatment plan. 5. Atrial fibrillation with rapid rate. The patient is currently in sinus rhythm. Continue curren t medical management. Follow up with cardiology. 6. Hypothyroidism. Continue Synthroid. 7. Anemia. Monitor changes. 8. 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 Dictated By: LINDSAY WITT/EDDIE Conf#: [id number] DID#: [id number]
[2017-02-14] MEDS: METOPROLOL 5 MG INJ IV PRN (18:25)
--- NOTE | 2017-02-14 20:09 | CONS ---
Date/Time of Note Date/Time of Note DATE: 02/14/17 TIME: 20:07 Consult Date/Type/Reason Admit Date/Time Feb 09, 2017 at 04:13 Initial Consult Date 02/09/17 Type of Consultation: card Ordering Provider: JOSH MILLER V. LANDSCAPE FOREMAN Subjective card f/u S: d/w staff and rhythm was reviewed. pt remained in NSR but this afternoon she went back to AFIB RVR no chest pain now. + palpitations now O: General: no acute distress HEENT: NC/AT. pupils are equal. round. NECK: NO JVD. no stridor. CV: Irregularly irregular . systolic murmur; no gallop or rubs. PULM: no wheezing or rhonchi. GI: SOFT, NT, ND, no rebound or guarding Extremity: trace B/L LE edema. no clubbing. + edema/ right hand neuro: awake and alert, OX3. Psych: calm and pleasant rectal: deferred Objective Vital Signs Date Time Temp Pulse Resp B/P Pulse Ox O2 Delivery O2 Flow Rate FiO2 02/14/17 18:18 171 02/14/17 15:53 97.8 20 125/79 98 02/12/17 05:35 02/11/17 13:00 Nasal Cannula 02/11/17 04:36 27 Intake and Output 02/13/17 02/13/17 02/14/17 15:00 23:00 07:00 Intake Total 940 ml Balance 940 ml Results/Medications Result Diagram: 02/14/17 0552 02/14/17 0552 Results 24 hrs Laboratory Tests Test 02/14/17 05:52 02/14/17 05:53 White Blood Count 8.0 Red Blood Count 3.70 L Hemoglobin 9.4 L Hematocrit 29.5 L Mean Corpuscular Volume 79.7 L Mean Corpuscular Hemoglobin 25.4 L Mean Corpuscular Hemoglobin Concent 31.9 L Red Cell Distribution Width 14.1 Platelet Count 175 Mean Platelet Volume 11.6 H Neutrophils % 57.0 Lymphocytes % 25.1 Monocytes % 17.1 H Eosinophils % 0.4 Basophils % 0.1 Nucleated Red Blood Cells % 0.0 Neutrophils # 4.6 Lymphocytes # 2.0 Monocytes # 1.4 H Eosinophils # 0.0 Basophils # 0.0 Nucleated Red Blood Cells # 0.0 Sodium Level 144 Potassium Level 4.2 Chloride Level 113 H Carbon Dioxide Level 20 L Anion Gap 15 Blood Urea Nitrogen 36 H Creatinine 2.05 H Glucose Level 101 Calcium Level 9.1 Phosphorus Level 4.0 Magnesium Level 1.8 Total Bilirubin 0.3 Direct Bilirubin 0.00 Indirect Bilirubin 0.3 Aspartate Amino Transf (AST/SGOT) 14 L Alanine Aminotransferase (ALT/SGPT) 26 Alkaline Phosphatase 99 Total Protein 6.3 Albumin 3.2 L Globulin 3.10 Albumin/Globulin Ratio 1.03 Uric Acid 8.4 H Medications Current Medications Apixaban (Eliquis) 2.5 mg BID PO Last administered on 02/14/17 08:02; Admin Dose 2.5 MG; Start 02/09/17 at 09:00 Mycophenolate Mofetil (Cellcept) 1,000 mg BID PO Last administered on 08:01; Admin Dose 1,000 MG; Start 02/09/17 at 09:00 Ondansetron HCl (Zofran Tab) 4 mg Q6H PRN PO NAUSEA AND/OR VOMITING; Start at 06:00 Nitroglycerin (Nitroglycerin (Sl Tab) 0.4 Mg) 1 tab Q5M PRN SL CHEST PAIN Last administered on 02/10/17 12:48; Admin Dose 1 TAB; Start 02/09/17 at 06:00 Cyclosporine (Neoral) 100 mg BID PO Last administered on 02/14/17 08:01; Admin Dose 100 MG; Start 02/09/17 at 09:00 Acetaminophen (Tylenol Tab) 325 mg Q6H PRN PO PAIN AND OR ELEVATED TEMP Last administered on 02/13/17 06:25; Admin Dose 325 MG; Start 02/09/17 at 12:00 Allopurinol (Zyloprim) 100 mg DAILY PO Last administered on 02/14/17 08:02; Admin Dose 100 MG; Start 02/09/17 at 13:00 Atorvastatin Calcium (Lipitor) 40 mg QHS PO Last administered on 02/13/17 21: 18; Admin Dose 40 MG; Start 02/09/17 at 21:00 Calcitriol (Rocaltrol) 0.5 mcg DAILY PO Last administered on 02/14/17 08:01; Admin Dose 0.5 MCG; Start 02/09/17 at 13:00 Fish Oil (Fish Oil) 2,000 mg BID PO Last administered on 02/14/17 08:01; Admin Dose 2,000 MG; Start 02/09/17 at 21:00 Prednisone (Prednisone) 5 mg DAILY PO Last administered on 02/14/17 08:02; Admin Dose 5 MG; Start 02/09/17 at 13:00 Ondansetron HCl (Zofran Inj) 4 mg Q6H PRN IV NAUSEA AND/OR VOMITING; Start at 12:00 Acetaminophen/ Hydrocodone Bitart ([place] (5/325)) 1 tab Q6H PRN PO MODERATE PAIN LEVEL 4-6 Last administered on 02/14/17 08:00; Admin Dose 1 TAB; Start at 12:00 Docusate Sodium (Colace) 100 mg Q12 PO Last administered on 02/14/17 08:02; Admin Dose 100 MG; Start 02/09/17 at 12:00 Famotidine (Pepcid) 20 mg Q12 PO Last administered on 02/14/17 08:01; Admin Dose 20 MG; Start 02/09/17 at 21:00 Metoprolol Tartrate (Lopressor) 2.5 mg Q1H PRN IV PALPITATION Last administered on 02/14/17 18:25; Admin Dose 2.5 MG; Start 02/10/17 at 13:30 Metoprolol Succinate 50 mg 50 mg BID PO Last administered on 02/14/17 08:02; Admin Dose 50 MG; Start 02/11/17 at 21:00 Meropenem/Sodium Chloride 50 ml @ 100 mls/hr Q12 IVPB Last administered on 12:45; Admin Dose 100 MLS/HR; Start 02/14/17 at 12:00 Magnesium Sulfate (Magnesium Sulfate 2 Gm/50 ml) 50 ml @ 25 mls/hr ONCE ONCE IVPB ; Start 02/14/17 at 20:30; Stop 02/14/17 at 22:29; Status UNV Assessment/Plan Chief Complaint/Hosp Course 1. P AFIB/ flutter. 2. hx of renal transplant 3. HTN 4. CKD: stable now 5. ? gout: will defer to IM CONT toprol bid. CONT MULTAQ. cyclosporine level to be adjusted by her primary border police. cont eliquis renal eval and treatment as per IM/ renal replace Mg DIG IV X 1 NOW SHONDA MOERNO MD [facility] Problems: SHONDA MORENO MD Feb 14, 2017 20:09
[2017-02-14] MEDS ORDERED: DIGOXIN 500 MCG INJ IV ONE (20:30)
[2017-02-14] MEDS ORDERED: MAGNESIUM SULFATE 2 GM/50 ML 50 ML IVPB ONE (20:30)
[2017-02-14] MEDS: ATORVASTATIN 40 MG TAB PO SCH (21:42)
[2017-02-15] VITALS (9 sets, daily range): BP systolic 103–122; BP diastolic 61–70; PULSE 57–63; RESP 18–21
[2017-02-15] MEDS: ACETAMINOPHEN 325 MG TAB PO PRN ×2 (04:43→09:56)
[2017-02-15 07:10] LABS: ALBUMIN 3.2 g/dl (3.3-4.9); ALBUMIN/GLOBULIN RATIO 1.06; BILIRUBIN,INDIRECT 0.5 mg/dl (0-1.1); BILIRUBIN,TOTAL 0.5 mg/dl (0.2-1.3); CREATININE 2.22 mg/dl (0.44-1.00); POTASSIUM 4.4 mmol/L (3.5-5.1); TOTAL PROTEIN 6.2 g/dl (6.1-8.1)
[2017-02-15 07:38] LABS: MAGNESIUM 2.5 mg/dl (1.7-2.5); PHOSPHORUS 4.2 mg/dl (2.5-4.9)
[2017-02-15] MEDS: CALCITRIOL 0.25 MCG CAP PO SCH (09:05)
[2017-02-15] MEDS: APIXABAN 5 MG TABLET PO SCH (09:07)
[2017-02-15] MEDS: MYCOPHENOLATE 250 MG CAP PO SCH (09:07)
[2017-02-15] MEDS: ALLOPURINOL 100 MG TAB PO SCH (09:07)
[2017-02-15] MEDS: predniSONE 5 MG TAB PO SCH (09:07)
[2017-02-15] MEDS: FAMOTIDINE 20 MG TAB PO SCH (09:07)
[2017-02-15] MEDS: DOCUSATE SODIUM 100 MG CAP PO SCH (09:07)
[2017-02-15] MEDS: CYCLOSPORINE MICROEMULS 100 MG CAP PO SCH (09:08)
[2017-02-15] MEDS: FISH OIL 1,000 MG CAP PO SCH (09:08)
[2017-02-15] MEDS: MEROPENEM 500MG/50 ML (PMX) 50 ML IVPB SCH (09:09)
[2017-02-15] MEDS: METOPROLOL (XL) 50 MG TAB PO SCH (09:17)
[2017-02-15] MEDS: DRONEDARONE HYDROCHLORIDE 400 MG TAB PO SCH ×2 (09:20→18:28)
--- NOTE | 2017-02-15 10:32 | PN ---
DATE: 02/15/2017 SUBJECTIVE: The patient is stable. No events overnight. OBJECTIVE: VITAL SIGNS: Blood pressure is 105/62, temperature 98.1, pulse 55. HEENT: Head is normocephalic. NECK: Supple. HEART: Irregularly irregular. LUNGS: Show diminished breath sounds at base. ABDOMEN: Soft, nontender to palpation. No rebound or guarding. EXTREMITIES: Negative for clubbing, cyanosis, no edema. DERMATOLOGIC: No rashes. MUSCULOSKELETAL: No joint effusions. NEUROLOGIC: No change in exam. MEDICATIONS: The patient's medications have been reviewed. LABORATORY DATA: Chemistry shows sodium 139, potassium 4.4, chloride 108, BUN 36, creatinine 2.25. ASSESSMENT AND PLAN: 1. 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 The etiology of current acute kidney injury is likely due to hemod ynamics. The patient's creatinine has been fluctuating between 2 to 2.2 mg/dL. At this point, [place] d continue current treatment plan, supportive care, renally dose all medications, continue current i mmunosuppressive regimen, cyclosporine, prednisone and CellCept. We will recheck a cyclosporine lev el and monitor closely. 2. Endstage renal disease, status post cadaveric renal transplant with a previous baseline creatini ne around 1.5 to 1.8 mg/dL. The patient is currently in acute kidney injury as stated above. Roberto nue current treatment plan and monitor. 3. Hyponatremia, resolved. 4. Anemia. Monitor hemoglobin and hematocrit levels. 5. Mineral bone disorder. Continue to monitor calcium and phosphorus levels. 6. Congestive heart failure. The patient is euvolemic. Continue current medical management. 7. Atrial fibrillation, rate controlled. Continue current treatment plan. 8. Hypothyroidism. Continue Synthroid. Dictated By: LINDSAY JOSE DO NR/NTS Conf#: [id number] DID#: [id number] CC: SEAMUS MONTEIRO MD;*EndCC*
--- NOTE | 2017-02-15 11:56 | PDOCDIS ---
Discharge Instructions CONDITION Patient Condition: Stable HOME CARE INSTRUCTIONS: Special Diet: RENAL FOLLOW UP/APPOINTMENTS Follow-up Plan Follow-up with outpatient KIDNEY transplant doctor and patient financial representative in 1 week. .Follow up with primary care physician in 1 week If you don't have one please let someone know, we can give you resources that may help you pick one. You may also call your insurance company to assign one to you. Review your medication list with your nurse before leaving and if you need new prescriptions please let your nurse know. I may have made changes to your home medications or given you new prescriptions, please let your primary doctor know as well. Stay compliant with your medications and report any side effects to your PCP or pharmacist. Return to the ER if you have any concerns and cannot reach your doctors or call your insurance company, they usually have a nurse that can help you. . Call 911 or go to the nearest emergency room if experiencing loss of consciousness, dizziness, chest pain, shortness of breath, vomiting/abdominal pain, speech difficulties, motor weakness or any unusual symptoms. JOSH MILLER NP Feb 15, 2017 11:56
[2017-02-15] MEDS ORDERED: NITR-58 PO (11:59)
[2017-02-15] MEDS ORDERED: DRON400T2 PO (11:59)
[2017-02-15] MEDS ORDERED: METO-319 PO (11:59)
--- NOTE | 2017-02-15 12:03 | DS ---
Date/Time of Note Date/Time of Note DATE: 02/15/17 TIME: 12:03 Discharge Summary Admission/Discharge Info Admit Date/Time Feb 09, 2017 at 04:13 Discharge Date/Time Discharge Diagnosis 1. Paroxysmal atrial fibrillation with RVR. Stable. On Multaq/metoprolol/ Eliquis. 2. ESBL UTI per urine culture. Treated 3.Essential hypertension. 4. Hypercholesterolemia. 5.End-stage renal disease. status post cadaveric renal transplant in 1998 6. Gout. No flares. 7. Anemia of kidney disease. H&H stable. Patient Condition: Stable Consults ,cards ,[facility] Course This is a 61-year-old female with a history of paroxysmal atrial fibrillation, end-stage renal disease who is also status post cadaveric renal transplant in 1998, hypercholesteremia, essential hypertension, gout, chronic anemia, who was admitted with chest discomfort and found to have atrial fibrillation with rapid ventricular rate. Patient was seen by cardiology and nephrology. She was ruled out for acute coronary syndrome. Apparently, patient was not taking her Multaq as her pharmacist was not refilling as she is also taking cyclosporine. Patient continued to have atrial fibrillation with RVR requiring Cardizem drip and ICU stay for 1 night. Cyclosporine blood level was performed at [facility] and found normal. Cardizem and beta-blockers were not sufficient to control her ventricular rate.She was then resumed back on Multaq as benefit outweighs the risk of combined use with cyclosporine. She was also continued on Eliquis for anticoagulation. Patient was then continued on uptitrated dose of beta-tana with Multaq and her rate seemed to be under control. During the course of hospitalization, patient was incidentally noted with ESBL urinary tract infection. She was treated with IV meropenem 2 days and recommendation was to continue Macrobid due to its sensitivity. At this time, patient is feeling back to her baseline. Her vital signs and labs remain stable. Patient is medically stable for discharge with outpatient follow-up with her outpatient bi report developer and transplant doctor. Upon discharge, we have also clarified with patient's pharmacist regarding refilling her medications including Multaq despite her taking cyclosporine. She was recommended to follow-up with renal transplant doctor or primary care doctor to do cyclosporine level periodically to avoid undesired side effects. Patient verbalized discharge instructions. Approximately 60 minutes was spent in coordinating the discharge on this patient. Patient was seen in collaboration with . Home Meds Active Scripts Nitrofurantoin Monohyd Macrocr* (Macrobid*) 100 Mg Capsr, 100 MG PO BID for 7 Days, #14 CAP Prov:MILLER,JOSH V. FAGOT MAKER 02/15/17 Dronedarone Hydrochloride* (Multaq*) 400 Mg Tablet, 400 MG PO BID WITH MEALS, # 60 TAB Prov:MILLER,JOSH V. FAGOT MAKER 02/15/17 Metoprolol Succinate* (Toprol XL*) 50 Mg Tab.er.24h, 50 MG PO BID, #60 TAB Prov:MILLER,JOSH V. FAGOT MAKER 02/15/17 Apixaban* (Eliquis*) 5 Mg Tablet, 2.5 MG PO BID for 60 Days, TAB Prov:CAMILO AMIN MD 01/19/17 Reported Medications Calcitriol* (Calcitriol*) 0.5 Mcg Capsule, 0.5 MCG PO DAILY, CAP 05/05/16 Albuterol Sulfate* (Ventolin HFA*) 18 Gm Hfa.aer.ad, 2 PUFF INHALATION Q4H, #1 INHALER 05/05/16 Docusate Sodium* (Doc-Q-Lace*) 100 Mg Capsule, 100 MG PO BID Y for CONSTIPATION , CAP 03/04/16 Atorvastatin* (Atorvastatin*) 40 Mg Tablet, 40 MG PO QHS, #30 TAB 03/04/16 Cyclosporine* (Cyclosporine* Modified) 25 Mg Capsule, 100 MG PO BID, #120 CAP 03/04/16 Allopurinol* (Allopurinol*) 100 Mg Tablet, 100 MG PO DAILY, TAB 01/08/14 Acetaminophen* (Acetaminophen*) 325 Mg Tablet, 325 MG PO Q6 Y for PAIN AND OR ELEVATED TEMP, TAB 01/08/14 Prednisone* (Prednisone*) 5 Mg Tab, 5 MG PO DAILY, TAB 01/08/14 Mycophenolate Mofetil* (Cellcept*) 500 Mg Tablet, 1000 MG PO BID, TAB 01/08/14 Jackson-3 Fatty Acids/Fish Oil* (Fish Oil *) 1,000 Mg Capsule, 2000 MG PO BID, CAP 01/08/14 Discontinued Reported Medications Metoprolol Succinate* (Toprol XL*) 25 Mg Tab.sr.24h, 25 MG PO BID, TAB 01/08/14 Discontinued Scripts Dronedarone Hydrochloride* (Multaq*) 400 Mg Tablet, 400 MG PO BID WITH MEALS for 60 Days, TAB Prov:CAMILO AMIN MD 01/19/17 Diltiazem Hcl* (Cardizem CD*) 180 Mg Cap.sr.24h, 180 MG PO DAILY for 30 Days Prov:MANOHAR YOUSIF NP 05/08/16 Follow-up Plan Follow-up with outpatient KIDNEY transplant doctor and bi report developer in 1 week. .Follow up with primary care physician in 1 week If you don't have one please let someone know, we can give you resources that may help you pick one. You may also call your insurance company to assign one to you. Review your medication list with your nurse before leaving and if you need new prescriptions please let your nurse know. I may have made changes to your home medications or given you new prescriptions, please let your primary doctor know as well. Stay compliant with your medications and report any side effects to your PCP or pharmacist. Return to the ER if you have any concerns and cannot reach your doctors or call your insurance company, they usually have a nurse that can help you. . Call 911 or go to the nearest emergency room if experiencing loss of consciousness, dizziness, chest pain, shortness of breath, vomiting/abdominal pain, speech difficulties, motor weakness or any unusual symptoms. Primary Care Provider [facility] Pending Labs Laboratory Tests Test 02/15/17 05:36 02/15/17 05:37 Sodium Level 139mmol/L (135-144) Potassium Level 4.4mmol/L (3.5-5.1) Chloride Level 108mmol/L (97-110) Carbon Dioxide Level 21mmol/L (21-31) Anion Gap 14 (8-16) Blood Urea Nitrogen 36mg/dl (7-20) Creatinine 2.22mg/dl (0.44-1.00) Glucose Level 101mg/dl (70-220) Calcium Level 9.0mg/dl (8.4-10.2) Total Bilirubin 0.5mg/dl (0.2-1.3) Direct Bilirubin 0.00mg/dl (0.00-0.20) Indirect Bilirubin 0.5mg/dl (0-1.1) Aspartate Amino Transf (AST/SGOT) 13IU/L (15-46) Alanine Aminotransferase (ALT/SGPT) 25IU/L (13-69) Alkaline Phosphatase 99IU/L (42-121) Total Protein 6.2g/dl (6.1-8.1) Albumin 3.2g/dl (3.3-4.9) Globulin 3.00g/dl (1.3-3.2) Albumin/Globulin Ratio 1.06 Digoxin Level < 0.4ng/ml (1.0-2.0) Phosphorus Level 4.2mg/dl (2.5-4.9) Magnesium Level 2.5mg/dl (1.7-2.5) Microbiology Date/Time Source Procedure Growth Status 02/14/17 12:20 Clean Catch Urine Urine Culture - Preliminary Gram Negative Jh Resulted JOSH MILLER NP Feb 15, 2017 12:03 JOSH MILLER NP Feb 15, 2017 12:03 02/14/17 12:20 Clean Catch Urine Urine Culture - Preliminary Gram Negative Jh Resulted JOSH MILLER NP Feb 15, 2017 12:03
--- NOTE | 2017-02-15 13:58 | CONS ---
Date/Time of Note Date/Time of Note DATE: 02/15/17 TIME: 13:56 Consult Date/Type/Reason Admit Date/Time Feb 09, 2017 at 04:13 Initial Consult Date 02/09/17 Type of Consultation: card Ordering Provider: REINA MILLER V. CLAY TRANSPORTER Subjective card f/u S: d/w staff and rhythm was reviewed. pt remained in NSR now d/w Reina Miller CLAY TRANSPORTER no chest pain now. NO palpitations now and wants to go home O: General: no acute distress HEENT: NC/AT. pupils are equal. round. NECK: NO JVD. no stridor. CV: RRR . systolic murmur; no gallop or rubs. PULM: no wheezing or rhonchi. GI: SOFT, NT, ND, no rebound or guarding Extremity: trace B/L LE edema. no clubbing. + edema/ right hand neuro: awake and alert, OX3. Psych: calm and pleasant rectal: deferred Objective Vital Signs Date Time Temp Pulse Resp B/P Pulse Ox O2 Delivery O2 Flow Rate FiO2 02/15/17 12:15 60 02/15/17 11:26 97.8 21 122/66 97 02/12/17 05:35 02/11/17 13:00 Nasal Cannula Intake and Output 02/14/17 02/14/17 02/15/17 14:59 22:59 06:59 Intake Total 750 ml 400 ml Balance 750 ml 400 ml Results/Medications Result Diagram: 02/14/17 0552 02/15/17 0536 Results 24 hrs Laboratory Tests Test 02/15/17 05:36 02/15/17 05:37 Sodium Level 139 Potassium Level 4.4 Chloride Level 108 Carbon Dioxide Level 21 Anion Gap 14 Blood Urea Nitrogen 36 H Creatinine 2.22 H Glucose Level 101 Calcium Level 9.0 Total Bilirubin 0.5 Direct Bilirubin 0.00 Indirect Bilirubin 0.5 Aspartate Amino Transf (AST/SGOT) 13 L Alanine Aminotransferase (ALT/SGPT) 25 Alkaline Phosphatase 99 Total Protein 6.2 Albumin 3.2 L Globulin 3.00 Albumin/Globulin Ratio 1.06 Digoxin Level < 0.4 L Phosphorus Level 4.2 Magnesium Level 2.5 Medications Current Medications Apixaban (Eliquis) 2.5 mg BID PO Last administered on 02/15/17t 09:07; Admin Dose 2.5 MG; Start 02/09/17 at 09:00 Mycophenolate Mofetil (Cellcept) 1,000 mg BID PO Last administered on 09:07; Admin Dose 1,000 MG; Start 02/09/17 at 09:00 Ondansetron HCl (Zofran Tab) 4 mg Q6H PRN PO NAUSEA AND/OR VOMITING; Start at 06:00 Nitroglycerin (Nitroglycerin (Sl Tab) 0.4 Mg) 1 tab Q5M PRN SL CHEST PAIN Last administered on 02/10/17 12:48; Admin Dose 1 TAB; Start 02/09/17 at 06:00 Cyclosporine (Neoral) 100 mg BID PO Last administered on 02/15/17 09:08; Admin Dose 100 MG; Start 02/09/17 at 09:00 Acetaminophen (Tylenol Tab) 325 mg Q6H PRN PO PAIN AND OR ELEVATED TEMP Last administered on 02/15/17 09:56; Admin Dose 325 MG; Start 02/09/17 at 12:00 Allopurinol (Zyloprim) 100 mg DAILY PO Last administered on 02/15/17 09:07; Admin Dose 100 MG; Start 02/09/17 at 13:00 Atorvastatin Calcium (Lipitor) 40 mg QHS PO Last administered on 02/14/17 21: 42; Admin Dose 40 MG; Start 02/09/17 at 21:00 Calcitriol (Rocaltrol) 0.5 mcg DAILY PO Last administered on 02/15/17 09:05; Admin Dose 0.5 MCG; Start 02/09/17 at 13:00 Fish Oil (Fish Oil) 2,000 mg BID PO Last administered on 02/15/17 09:08; Admin Dose 2,000 MG; Start 02/09/17 at 21:00 Prednisone (Prednisone) 5 mg DAILY PO Last administered on 02/15/17 09:07; Admin Dose 5 MG; Start 02/09/17 at 13:00 Ondansetron HCl (Zofran Inj) 4 mg Q6H PRN IV NAUSEA AND/OR VOMITING; Start at 12:00 Acetaminophen/ Hydrocodone Bitart ([place] (5/325)) 1 tab Q6H PRN PO MODERATE PAIN LEVEL 4-6 Last administered on 02/14/17 08:00; Admin Dose 1 TAB; Start at 12:00 Docusate Sodium (Colace) 100 mg Q12 PO Last administered on 02/15/17 09:07; Admin Dose 100 MG; Start 02/09/17 at 12:00 Famotidine (Pepcid) 20 mg Q12 PO Last administered on 02/15/17 09:07; Admin Dose 20 MG; Start 02/09/17 at 21:00 Metoprolol Tartrate (Lopressor) 2.5 mg Q1H PRN IV PALPITATION Last administered on 02/14/17 18:25; Admin Dose 2.5 MG; Start 02/10/17 at 13:30 Metoprolol Succinate 50 mg 50 mg BID PO Last administered on 02/15/17 09:17; Admin Dose 50 MG; Start 02/11/17 at 21:00 Meropenem/Sodium Chloride (Merrem 500mg/50 ml(Pmx)) 50 ml @ 100 mls/hr Q12 IVPB Last administered on 02/15/17 09:09; Admin Dose 100 MLS/HR; Start at 12:00 Assessment/Plan Chief Complaint/Hosp Course 1. P AFIB/ flutter. 2. hx of renal transplant 3. HTN 4. CKD: stable now 5. ? gout: will defer to IM CONT toprol bid. CONT MULTAQ. cyclosporine level to be adjusted by her primary mechanic recovery. cont eliquis renal eval and treatment as per IM/ renal replace Mg PRN SHONDA MORENO MD [facility] Problems: SHONDA MORENO MD Feb 15, 2017 13:58
[2017-02-17 12:41] LABS: CYCLOSPORIN 226 mcg/L
[2017-02-17 12:41] LABS: CYCLOSPORIN 259 mcg/L
== END 2017-02-15 19:15 | disposition home or self-care (01) | DRG 309 ==
LOC: E/R 02:49 → MS3 04:13 → MS4 02-10 06:05 → ICU 02-10 15:52 → TEL 02-11 13:19
PROVIDERS: ADMIT Family Medicine; ATTEND Family Medicine
DX: I48.0 Paroxysmal atrial fibrillation (principal); N17.9 Acute kidney failure, unspecified; T86.19 Other complication of kidney transplant; E87.0 Hyperosmolality and hypernatremia; N18.3 Chronic kidney disease, stage 3 (moderate); I13.0 Hypertensive heart and chronic kidney disease with heart failure and stage 1 through stage 4 chronic kidney disease, or unspecified chronic kidney disease; E83.9 Disorder of mineral metabolism, unspecified; I50.32 Chronic diastolic (congestive) heart failure; E83.42 Hypomagnesemia; E78.00 Pure hypercholesterolemia, unspecified; E03.9 Hypothyroidism, unspecified; N39.0 Urinary tract infection, site not specified; D63.1 Anemia in chronic kidney disease; R07.9 Chest pain, unspecified; I49.9 Cardiac arrhythmia, unspecified; M10.9 Gout, unspecified; B96.20 Unspecified Escherichia coli [E. coli] as the cause of diseases classified elsewhere; Z94.0 Kidney transplant status
CPT/HCPCS: 36415; 71010; 80048; 80053; 80158; 80162; 81001; 82550; 82553; 83540; 83735; 83880; 84100; 84484; 84560; 85025; 87081; 87086; 93005; 96374; J0153; J2185; J3475; J7030; J7070; J7120; J7512; J7517

== ENCOUNTER 2017-08-13 17:29 | Inpatient (IN) | END 2017-08-19 19:30 | disposition home health service (06) | DRG 308 ==

== ENCOUNTER 2017-09-16 13:59 | Inpatient (IN) | END 2017-09-17 18:17 | disposition home or self-care (01) | DRG 281 ==